=== PATIENT | female | born 1950 | race Caucasian/White ===

== ENCOUNTER → 2017-09-27 13:25 | Outpatient (CLI) | payer MEDICARE, OTHER, SELFPAY ==
[2017-09-27 15:34] LABS: Absolute Lymphocyte Count 1.99 X10^3/ul (0.83-4.51); Absolute Neutrophil Count 4.5 X10^3/uL (2.0-7.7); Basophil# 0.05 X10^3/uL; Basophil% 0.7 % (0-1); Eosinophils% 2.8 % (0-5); Hematocrit 36.7 % (37-47); Hemoglobin 12.8 g/dl (12.0-15.0); Lymphocyte # 1.99 X10^3/ul (4.0); Lymphocyte % 27.8 % (19-41); Mean Corp Hgb Conc 34.9 g/gl (32-36); Mean Corpuscular Hgb 32.5 pg (27.0-32.0); Mean Corpuscular Volume 93.1 fL (81-99); Mean Platelet Vol. 9.6 fl (6.2-12.0); Monocyte# 0.44 X10^3/uL; Monocyte% 6.1 % (0-10); Neutrophil # 4.46 X10^3/uL (2.7-7.7); Neutrophil % 62.3 % (47-70); Platelet Count 250 K/mm3 (150-450); RBC Distribution Width CV 12.5 % (11.6-14.6); RBC Distribution Width SD 41.9 fl (35.1-43.9); Red Blood Count 3.94 M/mm3 (4.2-5.4); White Blood Count 7.2 K/mm3 (4.4-11.0)
[2017-09-27 15:44] LABS: ALB/GLOB Ratio 1.4 RATIO (0.9-2.4); AST(SGOT) 24 U/L (15-37); Alanine Aminotransfer ALT/SGPT 27 U/L (13-56); Alkaline Phosphatase 61 U/L (45-117); Anion Gap 8 (5-15); BUN 14 mg/dL (7-18); BUN/Creat Ratio 16.9 RATIO (10-20); Chloride 103 mmol/L (98-107); Creatinine, Serum 0.83 mg/dL (0.55-1.02); EST Glomerular Filtration Rate 73 mL/min (>60); Est Glom Filt Rate - Afr Amer 88 mL/min (>60); Globulin 2.8 g/dL (2.2-4.2); Glucose 85 mg/dL (74-106); Potassium 3.8 mmol/L (3.5-5.1); Protein, Total 6.8 g/dL (6.4-8.2); Sodium Level 140 mmol/L (136-145)
[2017-09-27 15:45] LABS: POSITIVE COUNT NO; POSITIVE DIFFERENTIAL NO; POSITIVE MORPHOLOGY NO
== END ==
PROVIDERS: Family Provider Family Medicine; PCP Family Medicine; Visit Provider Internal Medicine Rheumatology
DX: M06.4 Inflammatory polyarthropathy (principal); R76.8 Other specified abnormal immunological findings in serum; M18.12 Unilateral primary osteoarthritis of first carpometacarpal joint, left hand; Z79.52 Long term (current) use of systemic steroids; Z79.899 Other long term (current) drug therapy
CPT/HCPCS: 36415; 80053; 85025

== ENCOUNTER → 2017-12-22 09:14 | Outpatient (CLI) | payer MEDICARE, OTHER, SELFPAY ==
[2017-12-22 10:34] LABS: Absolute Lymphocyte Count 1.78 X10^3/ul (0.83-4.51); Absolute Neutrophil Count 2.8 X10^3/uL (2.0-7.7); Basophil# 0.07 X10^3/uL; Basophil% 1.4 % (0-1); Eosinophil# 0.18 X10^3/uL; Eosinophils% 3.5 % (0-5); Hematocrit 38.2 % (37-47); Hemoglobin 13.5 g/dl (12.0-15.0); Lymphocyte # 1.78 X10^3/ul (4.0); Lymphocyte % 34.6 % (19-41); Mean Corp Hgb Conc 35.3 g/gl (32-36); Mean Corpuscular Hgb 32.8 pg (27.0-32.0); Mean Corpuscular Volume 92.9 fL (81-99); Mean Platelet Vol. 9.4 fl (6.2-12.0); Monocyte# 0.32 X10^3/uL; Monocyte% 6.2 % (0-10); Neutrophil # 2.78 X10^3/uL (2.7-7.7); Neutrophil % 54.1 % (47-70); Platelet Count 255 K/mm3 (150-450); RBC Distribution Width CV 12.4 % (11.6-14.6); RBC Distribution Width SD 40.9 fl (35.1-43.9); Red Blood Count 4.11 M/mm3 (4.2-5.4); White Blood Count 5.1 K/mm3 (4.4-11.0)
[2017-12-22 11:12] LABS: ALB/GLOB Ratio 1.5 RATIO (0.9-2.4); AST(SGOT) 24 U/L (15-37); Alanine Aminotransfer ALT/SGPT 33 U/L (13-56); Albumin, Serum 4.1 g/dL (3.2-5.0); Alkaline Phosphatase 78 U/L (45-117); Anion Gap 8 (5-15); BUN 12 mg/dL (7-18); BUN/Creat Ratio 14.2 RATIO (10-20); Calcium,Total 8.9 mg/dL (8.5-10.1); Chloride 106 mmol/L (98-107); Creatinine, Serum 0.84 mg/dL (0.55-1.02); EST Glomerular Filtration Rate 71 mL/min (>60); Est Glom Filt Rate - Afr Amer 86 mL/min (>60); Globulin 2.8 g/dL (2.2-4.2); Glucose 71 mg/dL (74-106); Potassium 4.1 mmol/L (3.5-5.1); Protein, Total 6.9 g/dL (6.4-8.2); Sodium Level 142 mmol/L (136-145)
[2017-12-22 11:14] LABS: POSITIVE COUNT NO; POSITIVE DIFFERENTIAL NO; POSITIVE MORPHOLOGY NO
== END ==
PROVIDERS: Family Provider Family Medicine; PCP Family Medicine; Visit Provider Internal Medicine Rheumatology
DX: M06.4 Inflammatory polyarthropathy (principal); Z79.52 Long term (current) use of systemic steroids; Z79.899 Other long term (current) drug therapy; R76.8 Other specified abnormal immunological findings in serum; M15.9 Polyosteoarthritis, unspecified; M18.12 Unilateral primary osteoarthritis of first carpometacarpal joint, left hand
CPT/HCPCS: 36415; 80053; 85025

== ENCOUNTER → 2018-03-09 14:53 | Outpatient (CLI) | payer MEDICARE, OTHER, SELFPAY ==
[2018-03-09 15:49] LABS: Absolute Neutrophil Count 3.9 X10^3/uL (2.0-7.7); Basophil# 0.05 X10^3/uL; Basophil% 0.8 % (0-1); Eosinophil# 0.21 X10^3/uL; Eosinophils% 3.3 % (0-5); Hematocrit 38.1 % (37-47); Lymphocyte % 29.8 % (19-41); Mean Corp Hgb Conc 34.1 g/gl (32-36); Mean Corpuscular Hgb 32.6 pg (27.0-32.0); Mean Corpuscular Volume 95.5 fL (81-99); Mean Platelet Vol. 9.2 fl (6.2-12.0); Monocyte% 4.7 % (0-10); Neutrophil # 3.92 X10^3/uL (2.7-7.7); Neutrophil % 61.4 % (47-70); Platelet Count 250 K/mm3 (150-450); RBC Distribution Width CV 12.9 % (11.6-14.6); RBC Distribution Width SD 44.4 fl (35.1-43.9); Red Blood Count 3.99 M/mm3 (4.2-5.4); White Blood Count 6.4 K/mm3 (4.4-11.0)
[2018-03-09 15:58] LABS: POSITIVE COUNT NO; POSITIVE DIFFERENTIAL NO; POSITIVE MORPHOLOGY NO
[2018-03-09 16:11] LABS: ALB/GLOB Ratio 1.4 RATIO (0.9-2.4); AST(SGOT) 23 U/L (15-37); Alanine Aminotransfer ALT/SGPT 29 U/L (13-56); Alkaline Phosphatase 67 U/L (45-117); Anion Gap 7 (5-15); BUN 15 mg/dL (7-18); BUN/Creat Ratio 15.3 RATIO (10-20); Calcium,Total 9.3 mg/dL (8.5-10.1); Chloride 104 mmol/L (98-107); Creatinine, Serum 0.98 mg/dL (0.55-1.02); EST Glomerular Filtration Rate 60 mL/min (>60); Est Glom Filt Rate - Afr Amer 72 mL/min (>60); Globulin 2.8 g/dL (2.2-4.2); Glucose 109 mg/dL (74-106); Potassium 3.5 mmol/L (3.5-5.1); Protein, Total 6.8 g/dL (6.4-8.2); Sodium Level 141 mmol/L (136-145)
== END ==
PROVIDERS: Family Provider Family Medicine; PCP Family Medicine; Visit Provider Internal Medicine Rheumatology
DX: M06.4 Inflammatory polyarthropathy (principal); Z79.52 Long term (current) use of systemic steroids; Z79.899 Other long term (current) drug therapy; R76.8 Other specified abnormal immunological findings in serum; M18.12 Unilateral primary osteoarthritis of first carpometacarpal joint, left hand; M21.40 Flat foot [pes planus] (acquired), unspecified foot; K21.9 Gastro-esophageal reflux disease without esophagitis; N80.0 Endometriosis of uterus; L30.9 Dermatitis, unspecified
CPT/HCPCS: 36415; 80053; 85025

== ENCOUNTER → 2018-06-10 14:22 | Outpatient (CLI) | payer MEDICARE, OTHER, SELFPAY ==
[2018-06-10 15:55] LABS: Hematocrit 38.8 % (37-47); Hemoglobin 13.6 g/dl (12.0-15.0); Mean Corp Hgb Conc 35.1 g/gl (32-36); Mean Corpuscular Hgb 33.3 pg (27.0-32.0); Mean Corpuscular Volume 95.1 fL (81-99); Platelet Count 276 K/mm3 (150-450); RBC Distribution Width CV 12.3 % (11.6-14.6); RBC Distribution Width SD 41.6 fl (35.1-43.9); Red Blood Count 4.08 M/mm3 (4.2-5.4); White Blood Count 6.5 K/mm3 (4.4-11.0)
[2018-06-10 15:56] LABS: Absolute Lymphocyte Count 2.11 X10^3/ul (0.83-4.51); Absolute Neutrophil Count 3.9 X10^3/uL (2.0-7.7); Basophil# 0.07 X10^3/uL; Basophil% 1.1 % (0-1); Eosinophil# 0.17 X10^3/uL; Eosinophils% 2.6 % (0-5); Lymphocyte # 2.11 X10^3/ul (4.0); Lymphocyte % 32.3 % (19-41); Mean Platelet Vol. 9.3 fl (6.2-12.0); Monocyte% 4.6 % (0-10); Neutrophil # 3.88 X10^3/uL (2.7-7.7); Neutrophil % 59.2 % (47-70); POSITIVE COUNT NO; POSITIVE DIFFERENTIAL NO; POSITIVE MORPHOLOGY NO
[2018-06-10 16:02] LABS: BUN 14 mg/dL (7-18); BUN/Creat Ratio 15.7 RATIO (10-20); Creatinine, Serum 0.89 mg/dL (0.55-1.02); EST Glomerular Filtration Rate 67 mL/min (>60); Est Glom Filt Rate - Afr Amer 81 mL/min (>60); Glucose 81 mg/dL (74-106)
[2018-06-10 16:03] LABS: ALB/GLOB Ratio 1.3 RATIO (0.9-2.4); AST(SGOT) 17 U/L (15-37); Alanine Aminotransfer ALT/SGPT 24 U/L (13-56); Alkaline Phosphatase 67 U/L (45-117); Anion Gap 7 (5-15); Calcium,Total 9.2 mg/dL (8.5-10.1); Chloride 106 mmol/L (98-107); Potassium 3.7 mmol/L (3.5-5.1); Sodium Level 141 mmol/L (136-145)
--- OUTSIDE RECORDS SUMMARY | 2018-08-05 14:01 | XMS RPT_ITS ---
:1950 Author Organization OH[facility] Care Team Providers Name Role Phone MARCO ANTONIO ALTAMIRANO, DR. TOBIAS Pradhan Attending Unavailable MD SIGIFREDO TONEY Attending Unavailable GEOFF MILLER MD Admitting Unavailable GEOFF MILLER MD Attending Unavailable GEOFF MILLER MD Primary Care Unavailable GEOFF MILLER MD Consulting Unavailable PROVIDER, UNKNOWN Consulting Unavailable PROVIDER, UNKNOWN Consulting Unavailable PROVIDER, UNKNOWN Consulting Unavailable OSCAR MILLER Admitting Unavailable OSCAR MILLER Attending Unavailable OSCAR MILLER Primary Care Unavailable GEOFF MILLER MD Consulting Unavailable PROVIDER, UNKNOWN Consulting Unavailable PROVIDER, UNKNOWN Consulting Unavailable PROVIDER, UNKNOWN Consulting Unavailable Vellanki, Katelynn Attending Unavailable Dewayne Miller Primary Care Unavailable Vellanki, Katelynn Attending Unavailable Vellanki, Katelynn Referring Unavailable Dewayne Miller Primary Care Unavailable Vellanki, Katelynn Attending Unavailable Vellanki, Katelynn Referring Unavailable Dewayne Miller Primary Care Unavailable Vellanki, Katelynn Attending Unavailable Vellanki, Katelynn Referring Unavailable Dewayne Miller Primary Care Unavailable Vellanki, Katelynn Attending Unavailable Vellanki, Katelynn Referring Unavailable Ray Reid Primary Care Unavailable PROBLEMS PROBLEMS DATE TYPE CONDITION / CODE ATTENDING STATUS SOURCE 06/20/2018 Principle Encounter for OSCAR MILLER Active [place] Jean Diagnosis screening for 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 [place] (current) use of [facility] systemic steroids / Hospital Z79.52(ICD-10) Repository 03/09/2018 Unknown Z79.899 - Other long Vellanki, Active [place] term (current) drug [facility] therapy / Hospital Z79.899(ICD-10) Repository 03/09/2018 Unknown R76.8 - Other Vellanki, Active [place] specified abnormal [facility] immunological Hospital findings in serum / Repository R76.8(ICD-10) 03/09/2018 Unknown M15.9 - Vellanki, 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, [facility] unspecified / Hospital M15.9(ICD-10) Repository 03/09/2018 Unknown 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, 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, left hand / M18.12(ICD-10) 03/09/2018 Unknown M21.40 - Flat foot Vellanki, Active [place] [pes planus] [facility] (acquired), Hospital unspecified foot / Repository M21.40(ICD-10) 03/09/2018 Unknown K21.9 - Parvin, Active [place] Gastro-esophageal [facility] reflux disease Hospital without esophagitis Repository / K21.9(ICD-10) 03/09/2018 Unknown N80.0 - Vellansamy, Active [place] Endometriosis of [facility] uterus / Hospital N80.0(ICD-10) Repository 03/09/2018 Unknown L30.9 - Dermatitis, Parvin, Active [place] unspecified / [facility] L30.9(ICD-10) Hospital Repository 07/17/2017 Admitting Hypokalemia / MARCO ANTONIO ALTAMIRANO DR. Active [facility] Diagnosis E87.6(ICD-10) TOBIAS AiLauren [facility] Repository PROCEDURES PROCEDURES No Procedure Records FoundRESULTS RESULTS CBC W/DIFF, AUTOMATED Collected: 06/10/2018 Status: F Source: [place] 2:30 PM [facility] REPOSITORY TYPE CODE TESTS RESULT OUT OF RANGE REFERENCE UNITS LAB L100.1000 4.4-11.0 K/mm3 Normal WBC 6.5 LAB L100.1200 4.2-5.4 M/mm3 Low RBC 4.08 LAB L100.1300 12.0-15.0 g/dl Normal HGB 13.6 LAB L100.1400 37-47 % Normal HCT 38.8 LAB L100.1500 81-99 fL Normal MCV 95.1 LAB L100.1600 27.0-32.0 pg High MCH 33.3 LAB L100.1700 32-36 g/gl Normal MCHC 35.1 LAB L100.1810 11.6-14.6 % Normal RDW CV 12.3 LAB L100.1820 35.1-43.9 fl Normal RDW SD 41.6 LAB L100.1900 150-450 K/mm3 Normal PLT 276 LAB L100.2000 6.2-12.0 fl Normal MPV 9.3 LAB L100.2100 47-70 % Normal NEUT% 59.2 LAB L100.2200 19-41 % Normal LY% 32.3 LAB L100.2300 0-10 % Normal MONO% 4.6 LAB L100.2400 0-5 % Normal EO% 2.6 LAB L100.2500 0-1 % High BASO% 1.1 LAB L100.2550 0.0-0.9 % Normal IM GRAN % 0.200 Result Comment: IG% - Immature Granulocytes (promyelocytes, myelocytes and metamyelocytes) > 1% indicates that a LEFT SHIFT is Present. LAB L100.2620 2.0-7.7 X10 3/uL Normal Absolute Neut 3.9 LAB L100.2720 0.83-4.51 X10 3/ul Normal Absolute Lymph 2.11 Performed By: #### L100.0100 #### [facility] [place], [address] COMPREHENSIVE METABOLIC Collected: 06/10/2018 Status: F Source: [facility] 2:30 PM [facility] [place] TYPE CODE TESTS RESULT OUT OF RANGE REFERENCE UNITS LAB L501.0100 74-106 mg/dL Normal GLU 81 Result Comment: Please note revised GLUCOSE reference range effective 2017. LAB L501.1000 7-18 mg/dL Normal BUN 14 LAB L501.1100 0.55-1.02 mg/dL Normal CREAT,SERUM 0.89 Result Comment: The validity of the calculated GFR AND GFRAA in patients over 70 years has not been determined. Clinical correlation is essential. LAB L501.1110 >60 mL/min Normal EST GFR 67 Result Comment: Non- GFR Calc LAB L501.1115 >60 mL/min Normal EST GFR - AA 81 Result Comment: GFR Calc LAB L501.1300 10-20 RATIO Normal BUN/CRE 15.7 LAB L501.1500 6.4-8.2 g/dL T Normal PROT 7.0 LAB L501.1800 3.2-5.0 g/dL Normal ALB 4.0 LAB L501.1950 2.2-4.2 g/dL Normal GLOB 3.0 LAB L501.2000 0.9-2.4 RATIO Normal A/G 1.3 LAB L501.2200 8.5-10.1 mg/dL CA Normal 9.2 LAB L501.4100 15-37 U/L Normal AST 17 LAB L501.4305 45-117 U/L Normal ALK P 67 LAB L501.4405 13-56 U/L Normal ALT 24 LAB L501.4600 0.20-1.00 mg/dL T Normal BILI 0.60 LAB L501.5300 136-145 mmol/L NA Normal 141 LAB L501.5600 3.5-5.1 mmol/L K Normal 3.7 LAB L501.5900 98-107 mmol/L CL Normal 106 LAB L501.6100 21.0-32.0 mmol/L Normal CO2 28.0 LAB L501.6200 5-15 Normal GAP 7 Performed By: #### L500.4050 #### [facility] [place], [address] CBC W/DIFF, AUTOMATED Collected: 03/09/2018 Status: F Source: [place] 3:02 PM [facility] TYPE CODE TESTS RESULT OUT OF RANGE REFERENCE UNITS LAB L100.1000 4.4-11.0 K/mm3 Normal WBC 6.4 LAB L100.1200 4.2-5.4 M/mm3 Low RBC 3.99 LAB L100.1300 12.0-15.0 g/dl Normal HGB 13.0 LAB L100.1400 37-47 % Normal HCT 38.1 LAB L100.1500 81-99 fL Normal MCV 95.5 LAB L100.1600 27.0-32.0 pg High MCH 32.6 LAB L100.1700 32-36 g/gl Normal MCHC 34.1 LAB L100.1810 11.6-14.6 % Normal RDW CV 12.9 LAB L100.1820 35.1-43.9 fl High RDW SD 44.4 LAB L100.1900 150-450 K/mm3 Normal PLT 250 LAB L100.2000 6.2-12.0 fl Normal MPV 9.2 LAB L100.2100 47-70 % Normal NEUT% 61.4 LAB L100.2200 19-41 % Normal LY% 29.8 LAB L100.2300 0-10 % Normal MONO% 4.7 LAB L100.2400 0-5 % Normal EO% 3.3 LAB L100.2500 0-1 % Normal BASO% 0.8 LAB L100.2550 0.0-0.9 % Normal IM GRAN % 0.000 Result Comment: IG% - Immature Granulocytes (promyelocytes, myelocytes and metamyelocytes) > 1% indicates that a LEFT SHIFT is Present. LAB L100.2620 2.0-7.7 X10 3/uL Normal Absolute Neut 3.9 LAB L100.2720 0.83-4.51 X10 3/ul Normal Absolute Lymph 1.90 Performed By: #### L100.0100 #### [facility] [address] [place], [address] COMPREHENSIVE METABOLIC Collected: 03/09/2018 Status: F Source: [place] [facility] 3:02 PM [facility] TYPE CODE TESTS RESULT OUT OF RANGE REFERENCE UNITS LAB L501.0100 74-106 mg/dL High GLU 109 Result Comment: Fasting Glucose result from 100 to 125 mg/dL suggests IMPAIRED HOMEOSTASIS per A.D.A. criteria. Please note revised GLUCOSE reference range effective 2017. LAB L501.1000 7-18 mg/dL Normal BUN 15 LAB L501.1100 0.55-1.02 mg/dL Normal CREAT,SERUM 0.98 Result Comment: The validity of the calculated GFR AND GFRAA in patients over 70 years has not been determined. Clinical correlation is essential. LAB L501.1110 >60 mL/min Normal EST GFR 60 Result Comment: Non- GFR Calc LAB L501.1115 >60 mL/min Normal EST GFR - AA 72 Result Comment: GFR Calc LAB L501.1300 10-20 RATIO Normal BUN/CRE 15.3 LAB L501.1500 6.4-8.2 g/dL T Normal PROT 6.8 LAB L501.1800 3.2-5.0 g/dL Normal ALB 4.0 LAB L501.1950 2.2-4.2 g/dL Normal GLOB 2.8 LAB L501.2000 0.9-2.4 RATIO Normal A/G 1.4 LAB L501.2200 8.5-10.1 mg/dL CA Normal 9.3 LAB L501.4100 15-37 U/L Normal AST 23 LAB L501.4305 45-117 U/L Normal ALK P 67 LAB L501.4405 13-56 U/L Normal ALT 29 LAB L501.4600 0.20-1.00 mg/dL T Normal BILI 0.80 LAB L501.5300 136-145 mmol/L NA Normal 141 LAB L501.5600 3.5-5.1 mmol/L K Normal 3.5 LAB L501.5900 98-107 mmol/L CL Normal 104 LAB L501.6100 21.0-32.0 mmol/L Normal CO2 30.0 LAB L501.6200 5-15 Normal GAP 7 Performed By: #### L500.4050 #### [facility] [place], [address] COMPREHENSIVE METABOLIC Collected: 12/22/2017 Status: F Source: [place] [facility] 9:20 AM [facility] TYPE CODE TESTS RESULT OUT OF RANGE REFERENCE UNITS LAB L501.0100 74-106 mg/dL Low GLU 71 Result Comment: Please note revised GLUCOSE reference range effective 2017. LAB L501.1000 7-18 mg/dL Normal BUN 12 LAB L501.1100 0.55-1.02 mg/dL Normal CREAT,SERUM 0.84 Result Comment: The validity of the calculated GFR AND GFRAA in patients over 70 years has not been determined. Clinical correlation is essential. LAB L501.1110 >60 mL/min Normal EST GFR 71 Result Comment: Non- GFR Calc LAB L501.1115 >60 mL/min Normal EST GFR - AA 86 Result Comment: GFR Calc LAB L501.1300 10-20 RATIO Normal BUN/CRE 14.2 LAB L501.1500 6.4-8.2 g/dL T Normal PROT 6.9 LAB L501.1800 3.2-5.0 g/dL Normal ALB 4.1 LAB L501.1950 2.2-4.2 g/dL Normal GLOB 2.8 LAB L501.2000 0.9-2.4 RATIO Normal A/G 1.5 LAB L501.2200 8.5-10.1 mg/dL CA Normal 8.9 LAB L501.4100 15-37 U/L Normal AST 24 LAB L501.4305 45-117 U/L Normal ALK P 78 LAB L501.4405 13-56 U/L Normal ALT 33 LAB L501.4600 0.20-1.00 mg/dL T Normal BILI 0.70 LAB L501.5300 136-145 mmol/L NA Normal 142 LAB L501.5600 3.5-5.1 mmol/L K Normal 4.1 LAB L501.5900 98-107 mmol/L CL Normal 106 LAB L501.6100 21.0-32.0 mmol/L Normal CO2 28.0 LAB L501.6200 5-15 Normal GAP 8 Performed By: #### L500.4050 #### [facility] [place], [address] CBC W/DIFF, AUTOMATED Collected: 12/22/2017 Status: F Source: [place] 9:20 AM [facility] TYPE CODE TESTS RESULT OUT OF RANGE REFERENCE UNITS LAB L100.1000 4.4-11.0 K/mm3 Normal WBC 5.1 LAB L100.1200 4.2-5.4 M/mm3 Low RBC 4.11 LAB L100.1300 12.0-15.0 g/dl Normal HGB 13.5 LAB L100.1400 37-47 % Normal HCT 38.2 LAB L100.1500 81-99 fL Normal MCV 92.9 LAB L100.1600 27.0-32.0 pg High MCH 32.8 LAB L100.1700 32-36 g/gl Normal MCHC 35.3 LAB L100.1810 11.6-14.6 % Normal RDW CV 12.4 LAB L100.1820 35.1-43.9 fl Normal RDW SD 40.9 LAB L100.1900 150-450 K/mm3 Normal PLT 255 LAB L100.2000 6.2-12.0 fl Normal MPV 9.4 LAB L100.2100 47-70 % Normal NEUT% 54.1 LAB L100.2200 19-41 % Normal LY% 34.6 LAB L100.2300 0-10 % Normal MONO% 6.2 LAB L100.2400 0-5 % Normal EO% 3.5 LAB L100.2500 0-1 % High BASO% 1.4 LAB L100.2550 0.0-0.9 % Normal IM GRAN % 0.200 Result Comment: IG% - Immature Granulocytes (promyelocytes, myelocytes and metamyelocytes) > 1% indicates that a LEFT SHIFT is Present. LAB L100.2620 2.0-7.7 X10 3/uL Normal Absolute Neut 2.8 LAB L100.2720 0.83-4.51 X10 3/ul Normal Absolute Lymph 1.78 Performed By: #### L100.0100 #### [facility] [address] [place], [place], [address] COMPREHENSIVE METABOLIC Collected: 09/27/2017 Status: F Source: [place] 1:33 PM [facility] TYPE CODE TESTS RESULT OUT OF RANGE REFERENCE UNITS LAB L501.0100 74-106 mg/dL Normal GLU 85 Result Comment: Please note revised GLUCOSE reference range effective 2017. LAB L501.1000 7-18 mg/dL Normal BUN 14 LAB L501.1100 0.55-1.02 mg/dL Normal CREAT,SERUM 0.83 Result Comment: The validity of the calculated GFR AND GFRAA in patients over 70 years has not been determined. Clinical correlation is essential. LAB L501.1110 >60 mL/min Normal EST GFR 73 Result Comment: Non- GFR Calc LAB L501.1115 >60 mL/min Normal EST GFR - AA 88 Result Comment: GFR Calc LAB L501.1300 10-20 RATIO Normal BUN/CRE 16.9 LAB L501.1500 6.4-8.2 g/dL T Normal PROT 6.8 LAB L501.1800 3.2-5.0 g/dL Normal ALB 4.0 LAB L501.1950 2.2-4.2 g/dL Normal GLOB 2.8 LAB L501.2000 0.9-2.4 RATIO Normal A/G 1.4 LAB L501.2200 8.5-10.1 mg/dL CA Normal 9.0 LAB L501.4100 15-37 U/L Normal AST 24 LAB L501.4305 45-117 U/L Normal ALK P 61 LAB L501.4405 13-56 U/L Normal ALT 27 Result Comment: Please note revised ALT reference range effective 2017. LAB L501.4600 0.20-1.00 mg/dL Normal T BILI 0.70 LAB L501.5300 136-145 mmol/L Normal NA 140 LAB L501.5600 3.5-5.1 mmol/L Normal K 3.8 LAB L501.5900 98-107 mmol/L Normal CL 103 LAB L501.6100 21.0-32.0 mmol/L Normal CO2 29.0 LAB L501.6200 5-15 Normal GAP 8 Performed By: #### L500.4050 #### [facility] [address] [place], [place], [address] CBC W/DIFF, AUTOMATED Collected: 09/27/2017 Status: F Source: [place] 1:33 PM [facility] TYPE CODE TESTS RESULT OUT OF RANGE REFERENCE UNITS LAB L100.1000 4.4-11.0 K/mm3 Normal WBC 7.2 LAB L100.1200 4.2-5.4 M/mm3 Low RBC 3.94 LAB L100.1300 12.0-15.0 g/dl Normal HGB 12.8 LAB L100.1400 37-47 % Low HCT 36.7 LAB L100.1500 81-99 fL Normal MCV 93.1 LAB L100.1600 27.0-32.0 pg High MCH 32.5 LAB L100.1700 32-36 g/gl Normal MCHC 34.9 LAB L100.1810 11.6-14.6 % Normal RDW CV 12.5 LAB L100.1820 35.1-43.9 fl Normal RDW SD 41.9 LAB L100.1900 150-450 K/mm3 Normal PLT 250 LAB L100.2000 6.2-12.0 fl Normal MPV 9.6 LAB L100.2100 47-70 % Normal NEUT% 62.3 LAB L100.2200 19-41 % Normal LY% 27.8 LAB L100.2300 0-10 % Normal MONO% 6.1 LAB L100.2400 0-5 % Normal EO% 2.8 LAB L100.2500 0-1 % Normal BASO% 0.7 LAB L100.2550 0.0-0.9 % Normal IM GRAN % 0.300 Result Comment: IG% - Immature Granulocytes (promyelocytes, myelocytes and metamyelocytes) > 1% indicates that a LEFT SHIFT is Present. LAB L100.2620 2.0-7.7 X10 3/uL Normal Absolute Neut 4.5 LAB L100.2720 0.83-4.51 X10 3/ul Normal Absolute Lymph 1.99 Performed By: #### L100.0100 #### [facility] [address] [place], [place], [address] BONE DENSITY STUDY Observed: 08/26/2017 Status: F Source: [facility] 10:57 AM [place] [id number] Patient: JOSHUA ELLIOTT Phone#: : [phone] Age: 67 Gender: F Pt. Type: Out Account: [id number] Location: 052 Ordering: GEOFF MILLER Exam Date: 08/26/2017/10:58 Family Phys: Charge Code: [id number] Physician: Charlton Order #: [id number] DLP Dose#: PROCEDURE: BONE DENSITY STUDY TECHNIQUE: Lumbar vertebral and proximal femoral dual-energy X-ray absorptiometry (DXA) was performed on a central [employer] device. SPINE ANALYSIS RESULTS: Average lumbar bone mineral density (BMD) (g/cm2): 1.085 Lumbar T-score (standard deviation relative to young adult mean BMD): -0.8 Lumbar Z-score (standard deviation relative to age matched control group): 0.8 SPINE CLASSIFICATION: Normal (T-score > -1.0). HIP ANALYSIS RESULTS: Left femoral bone mineral density (BMD) (g/cm2): 0.847 Right femoral bone mineral density (BMD) (g/cm2): 0.875 Femur T-score (standard deviation relative to young adult mean BMD): -1.2 Femur Z-score (standard deviation relative to age matched control group): 0.1 HIP CLASSIFICATION (World Health Organization): Osteopenia (T-score -1.0 to -2.5). Note: The 2007 International Society for Clinical Densitometry (ISCD) Official Positions state that osteoporosis in lalo-menopausal and post-menopausal women and in men age 50 and older may be diagnosed if the T-score of the lumbar spine, total hip, or femoral neck is -2.5 or less. Hip BMD is reported from the femoral neck or total proximal femur whichever is lowest. In pre-menopausal women and in men younger than age 50, T-scores may be used but Z-scores are preferred. In this patient group, a Z-score of -2.0 or lower is defined as below the expected range for age. FRAX is a computer-based algorithm which uses easily obtained clinical risk factors combined with femoral neck BMD or T-score to estimate an individual 10-year fracture probability. FRAX with BMD predicts fracture risk better than clinical risk factors or BMD alone. It is not appropriate to use FRAX to monitor treatment response. ADDITIONAL FINDINGS: No significant additional findings. [place] [address] Patient: JOSHUA ELLIOTT Phone#: : 1950 Age: 67 Gender: F Pt. Type: Out Account: [id number] Location: 052 Ordering: GEOFF MILLER Exam Date: 08/26/2017/10:58 Family Phys: Charge Code: [id number] Physician: Charlton Order #: [id number] DLP Dose#: Dictated by: Rebecca Love MD on 08/26/2017 at 11:29 Approved by: Rebecca Love MD on 08/26/2017 at 11:29 BMP Collected: 08/18/2017 Status: F Source: [facility] 10:14 AM [facility] [place] REPOSITORY TYPE CODE TESTS RESULT OUT OF REFERENCE UNITS RANGE LAB GLU(LOINC) 82-115 mg/dL Glucose Level 89 LAB NA(LOINC) 136-145 mEq/L Sodium Level 139 LAB K(LOINC) 3.5-5.0 mEq/L Potassium Level 4.0 LAB CL(LOINC) 98-110 mEq/L Chloride 102 LAB CO2(LOINC) 22-32 mEq/L CO2 28 LAB EBAL(LOINC 4.0-15.0 mEq/L ) Electrolyte Balance 9.0 LAB BUN(LOINC) 8.0-22.0 mg/dL BUN 14.0 LAB CRE(LOINC) 0.50-1.20 mg/dL Creatinine Lvl (s) 0.80 LAB BC(LOINC) 10.0-22.0 ratio BUN/Creatinine 17.5 Ratio LAB CA(LOINC) 8.4-10.1 mg/dL Calcium Lvl 9.4 Performed By: #### BMP, GFR #### [place] [address] .GFR Collected: 08/18/2017 Status: F Source: [facility] 10:14 AM [facility] REPOSITORY TYPE CODE TESTS RESULT OUT OF REFERENCE UNITS RANGE LAB GFRAA(LOINC ml/min/1.73 ) sqm GFR >60 Palestinian Result Comment: GFR Population mean for , Non- Americans Ages 20-29 = 116 mL/min/1.73 sq.m. Ages 30-39 = 107 mL/min/1.73 sq.m. Ages 40-49 = 99 mL/min/1.73 sq.m. Ages 50-59 = 93 mL/min/1.73 sq.m. Ages 60-69 = 85 mL/min/1.73 sq.m. Ages 70+ = 75 mL/min/1.73 sq.m. Chronic Kidney Disease: Less than 60 mL/min/1.73 square meters End Stage Renal Disease: Less than 15 mL/min/1.73 square meters LAB GFRNO(LOINC) ml/min/1.73sqm GFR Non- >60 Result Comment: GFR Population mean for , Non- Americans Ages 20-29 = 116 mL/min/1.73 sq.m. Ages 30-39 = 107 mL/min/1.73 sq.m. Ages 40-49 = 99 mL/min/1.73 sq.m. Ages 50-59 = 93 mL/min/1.73 sq.m. Ages 60-69 = 85 mL/min/1.73 sq.m. Ages 70+ = 75 mL/min/1.73 sq.m. Chronic Kidney Disease: Less than 60 mL/min/1.73 square meters End Stage Renal Disease: Less than 15 mL/min/1.73 square meters Performed By: #### BMP, GFR #### [facility] [address] [place] [id number] BMP Collected: 07/17/2017 Status: F Source: [facility] 10:08 AM [facility] [place] REPOSITORY TYPE CODE TESTS RESULT OUT OF REFERENCE UNITS RANGE LAB GLU(LOINC) 82-115 mg/dL Glucose Level 84 LAB NA(LOINC) 136-145 mEq/L Sodium Level 142 LAB K(LOINC) 3.5-5.0 mEq/L Potassium Level 4.0 LAB CL(LOINC) 98-110 mEq/L Chloride 102 LAB CO2(LOINC) 22-32 mEq/L CO2 31 LAB EBAL(LOINC 4.0-15.0 mEq/L ) Electrolyte Balance 9.0 LAB BUN(LOINC) 8.0-22.0 mg/dL BUN 16.0 LAB CRE(LOINC) 0.50-1.20 mg/dL Creatinine Lvl (s) 0.89 LAB BC(LOINC) 10.0-22.0 ratio BUN/Creatinine 18.0 Ratio LAB CA(LOINC) 8.4-10.1 mg/dL Calcium Lvl 9.3 Performed By: #### GFR, BMP #### [facility] [address] [place] [address] .GFR Collected: 07/17/2017 Status: F Source: [facility] 10:08 AM [facility] REPOSITORY TYPE CODE TESTS RESULT OUT OF REFERENCE UNITS RANGE LAB GFRAA(LOINC ml/min/1.73 ) sqm GFR >60 Palestinian Result Comment: GFR Population mean for , Non- Americans Ages 20-29 = 116 mL/min/1.73 sq.m. Ages 30-39 = 107 mL/min/1.73 sq.m. Ages 40-49 = 99 mL/min/1.73 sq.m. Ages 50-59 = 93 mL/min/1.73 sq.m. Ages 60-69 = 85 mL/min/1.73 sq.m. Ages 70+ = 75 mL/min/1.73 sq.m. Chronic Kidney Disease: Less than 60 mL/min/1.73 square meters End Stage Renal Disease: Less than 15 mL/min/1.73 square meters LAB GFRNO(LOINC) ml/min/1.73sqm GFR Non- >60 Result Comment: GFR Population mean for , Non- Americans Ages 20-29 = 116 mL/min/1.73 sq.m. Ages 30-39 = 107 mL/min/1.73 sq.m. Ages 40-49 = 99 mL/min/1.73 sq.m. Ages 50-59 = 93 mL/min/1.73 sq.m. Ages 60-69 = 85 mL/min/1.73 sq.m. Ages 70+ = 75 mL/min/1.73 sq.m. Chronic Kidney Disease: Less than 60 mL/min/1.73 square meters End Stage Renal Disease: Less than 15 mL/min/1.73 square meters Performed By: #### GFR, BMP #### [place] [address] CBC W/DIFF, AUTOMATED Collected: 07/14/2017 Status: F Source: [place] 11:34 AM [facility] TYPE CODE TESTS RESULT OUT OF RANGE REFERENCE UNITS LAB L100.1000 4.4-11.0 K/mm3 Normal WBC 8.0 LAB L100.1200 4.2-5.4 M/mm3 Low RBC 4.18 LAB L100.1300 12.0-15.0 g/dl Normal HGB 13.2 LAB L100.1400 37-47 % Normal HCT 39.4 LAB L100.1500 81-99 fL Normal MCV 94.3 LAB L100.1600 27.0-32.0 pg Normal MCH 31.6 LAB L100.1700 32-36 g/gl Normal MCHC 33.5 LAB L100.1810 11.6-14.6 % Normal RDW CV 13.1 LAB L100.1820 35.1-43.9 fl High RDW SD 45.0 LAB L100.1900 150-450 K/mm3 Normal PLT 249 LAB L100.2000 6.2-12.0 fl Normal MPV 9.2 LAB L100.2100 47-70 % Normal NEUT% 55.9 LAB L100.2200 19-41 % Normal LY% 33.3 LAB L100.2300 0-10 % Normal MONO% 7.4 LAB L100.2400 0-5 % Normal EO% 2.6 LAB L100.2500 0-1 % Normal BASO% 0.5 LAB L100.2550 0.0-0.9 % Normal IM GRAN % 0.300 Result Comment: IG% - Immature Granulocytes (promyelocytes, myelocytes and metamyelocytes) > 1% indicates that a LEFT SHIFT is Present. LAB L100.2620 2.0-7.7 X10 3/uL Normal Absolute Neut 4.4 LAB L100.2720 0.83-4.51 X10 3/ul Normal Absolute Lymph 2.65 Performed By: #### L100.0100 #### [facility] [address] [place], [address] COMPREHENSIVE METABOLIC Collected: 07/14/2017 Status: F [facility] TYPE CODE TESTS RESULT OUT OF RANGE REFERENCE UNITS LAB L501.0100 70-110 mg/dL Low GLU 65 LAB L501.1000 7-18 mg/dL Normal BUN 13 LAB L501.1100 0.55-1.02 mg/dL Normal 0.96 CREAT,SERUM Result Comment: The validity of the calculated GFR AND GFRAA in patients over 70 years has not been determined. Clinical correlation is essential. LAB L501.1110 >60 mL/min Normal EST GFR 61 Result Comment: Non- GFR Calc LAB L501.1115 >60 mL/min Normal EST GFR - AA 74 Result Comment: GFR Calc LAB L501.1300 10-20 RATIO Normal BUN/CRE 13.5 LAB L501.1500 6.4-8.2 g/dL T Normal PROT 6.9 LAB L501.1800 3.4-5.0 g/dL Normal ALB 3.6 Result Comment: Please note revised Albumin AND Globulin reference range effective 2017. LAB L501.1950 2.2-4.2 g/dL Normal GLOB 3.3 LAB L501.2000 0.9-2.4 RATIO Normal A/G 1.1 LAB L501.2200 8.5-10.1 mg/dL Normal CA 9.4 LAB L501.4100 15-37 U/L Normal AST 19 LAB L501.4305 45-117 U/L Normal ALK P 57 LAB L501.4405 12-78 U/L Normal ALT 26 LAB L501.4600 0.20-1.00 mg/dL Normal T BILI 0.80 LAB L501.5300 136-145 mmol/L Normal NA 139 LAB L501.5600 3.5-5.1 mmol/L Low K 3.1 LAB L501.5900 98-107 mmol/L Normal CL 101 LAB L501.6100 21.0-32.0 mmol/L Normal CO2 31.0 LAB L501.6200 5-15 Normal GAP 7 Performed By: #### L500.4050 #### [facility] [address] [place], [address] ALLERGIES ALLERGIES DATE TYPE / CODE NAME / CODE REACTION SEVERITY SOURCE Drug PCN Moderate Brando Pomerene Allergy/4160 (penicillin)/ ([place] [id number](SNOMED [id number](RXNO Modifier) Repository CT) RM) (Qualifier Value) Drug SULFA Moderate Brando Pomerene Allergy/4160 (sulfonamide) ([place] [address](SNOMED /[id number](RXN Modifier) Repository CT) ORM) (Qualifier Value) Drug ANESTHETIC, Moderate Brando Pomerene Allergy/4160 AMIDE/[id number] ([place] [address](SNOMED 2(RXNORM) Modifier) Repository CT) (Qualifier Value) ENCOUNTERS ENCOUNTERS ADMIT/DISCHARGE ACCOUNT NUMBER ADMITTING ENCOUNTER LOCATION SOURCE CLASS 06/20/2018/06/20/20 [id number] OSCAR MILLER [address] Repository 06/10/2018 [id number] [facility] ding:MTLAB Repository 03/09/2018 [id number] [facility] ding:MTLAB Repository 12/22/2017 [id number] [facility] ding:MTLAB Repository 09/27/2017 [id number] [facility] ding:MTLAB Repository 08/26/2017/08/26/19 [id number] GEOFF MILLER [address] Repository 08/18/2017/08/22/[id number] BBuilding:[facility] Repository 07/17/2017/07/21/[id number] BBuilding:[facility] Repository 07/14/2017 [id number] [facility] ding:MTLAB Repository PAYERS PAYERS ENCOUNTER GUARANTOR PAYER SUBSCRIBER SOURCE 06/20/2018 JOSHUA Car Brando Kernswendy CARUSODOB: Insurance:MEDICARE CARUSODOB: [facility] [id number] [facility] [id number] Hospital TR Number: 5 [facility] Repository [address] [place] [address], [id number] [address] [place] [address]Vsk: Date:Plan Name: [id number] () 06/20/2018 Secondary JOSHUA Jean Insurance:MEDICAL CARUSODOB: [facility] [id number] Hospital OUTPATIENTPolicy [address] Repository Number: PoojaCIRCLE, [id number] [place] [id number] Date:Plan Name: 06/10/2018 JOSHUA J Primary JOSHUA J [place] [id number] TR Insurance:MEDICARE CARUSODOB: [address], PART A BPolicy Number: [id number] [address]Ppr: [id number] Repository Date:2018-06-10 () 06/10/2018 Secondary JOSHUA Joceline [place] Insurance:MEDICAL CARUSODOB: [facility] [id number] Hospital Number: Repository [id number] Date:[id number] [address] [place] [id number]: 06/10/2018 Tertiary NOT GIVENUNK [place] Insurance:SELF PAY [facility] Number: Effective Repository Date:2018-06-10 03/09/2018 JOSHUA J Primary JOSHUA J [place] [id number] TR Insurance:MEDICARE CARUSODOB: [address], PART A BPolicy Number: [id number] [facility] Hospital [address]Czc: [id number] Repository Date:2018-03-09 () 03/09/2018 Secondary JOSHUA J Bertin Insurance:MEDICAL CARUSODOB: [facility] [id number] Hospital Number: Repository [id number] Date:[id number] [address] [place] [id number]: 03/09/2018 Tertiary NOT GIVENUNK [place] Insurance:SELF PAY [facility] Number: Effective Repository Date:2018-03-09 12/22/2017 JOSHUA J Primary JOSHUA J [place] [id number] TR Insurance:MEDICARE CARUSODOB: [address], PART A olicy Number: [id number] General Hospital [address]Rjm: [id number] Repository Date:2017-12-22 () 12/22/2017 Secondary JOSHUA J [place] Insurance:MEDICAL CARUSODOB: [facility] [id number] Hospital Number: Repository [id number] Date:[id number] [address] [place] [id number]: 12/22/2017 Tertiary NOT GIVENUNK [place] Insurance:SELF PAY [facility] Number: Effective Repository Date:2017-12-22 09/27/2017 JOSHUA J Primary JOSHUA J [place] [id number] TR Insurance:MEDICARE CARUSODOB: [address], [facility] A olicy Number: [id number] General Hospital [address]8923Kqj: [id number] Repository Date:2017-09-27 () 09/27/2017 Secondary JOSHUA J [place] Insurance:MEDICAL CARUSODOB: [facility] [id number] Hospital Number: Repository [id number] Date:[id number] [address] [id number]: 09/27/2017 Tertiary NOT GIVENUNK [place] Insurance:SELF PAY [facility] Number: Effective Repository Date:2017-09-27 08/26/2017 JOSHUA J Primary JOSHUA J Brando Jean CARUSODOB: Insurance:MEDICARE CARUSODOB: [facility] [id number] [facility] [id number] Hospital [address] Number: 5 [facility] Repository [address] [place] [id number] Date:Plan Name: [id number]: () 08/26/2017 Secondary JOSHUARAY Jean Insurance:MEDICAL CARUSODOB: [facility] [id number] Hospital OUTPATIENTPolicy [address] Repository Number: [address] [place] [address] [id number] [place] [id number] Date:Plan Name:M3 08/18/2017 JOSHUA Primary JOSHUA CARUSODOB: [facility] CARUSODOB: Insurance:MEDICARE [id number] [facility] PART BPolicy Number: 5 tr Repository tr [id number], Date:2017-08-18 - [place] [address]Pyr: [place] [address]Oyg: [id number] Name:[facility] ()Tel: (000) (HP)Tel: (000) Administrators LLCPO 000-0000 (WP) 000-0000 (WP) [address] [address], [place] [address]KC: 07/17/2017 JOSHUA Primary JOSHUA CARUSODOB: [facility] CARUSODOB: Insurance:MEDICARE [id number] [facility] PART BPolicy Number: 5 tr Repository tr [id number], Date:2017-07-17 - [place] [address]Zfz: [place] [address]Liv: [id number] Name:[facility] ()Tel: (000) (HP)Tel: (000) Administrators LLCPO 000-0000 (WP) 000-0000 (WP) [address] [address], [place] [address]GO: 07/14/2017 JOSHUA J Primary JOSHUA J [place] [id number] TR Insurance:MEDICARE CARUSODOB: [address], PART A BPolicy Number: [id number] Hospital [place] [address]Bqy: [id number] Repository Date:2017-07-14 (HP) 07/14/2017 Secondary JOSHUA Saundersoster Insurance:MEDICAL CARUSODOB: [facility] [id number] Hospital Number: Repository [id number] Date:1137-03-09YI [address] [address]KH: 07/14/2017 Tertiary NOT GIVENUNK Bertin Insurance:SELF PAY [facility] Number: Effective Repository Date:2017-07-14
== END ==
PROVIDERS: Family Provider Family Medicine; PCP Family Medicine; Referring Provider Internal Medicine Rheumatology; Visit Provider Internal Medicine Rheumatology
DX: M06.4 Inflammatory polyarthropathy (principal); Z79.52 Long term (current) use of systemic steroids; Z79.899 Other long term (current) drug therapy; R76.8 Other specified abnormal immunological findings in serum; M18.12 Unilateral primary osteoarthritis of first carpometacarpal joint, left hand; M21.40 Flat foot [pes planus] (acquired), unspecified foot; K21.9 Gastro-esophageal reflux disease without esophagitis; N80.0 Endometriosis of uterus; L30.9 Dermatitis, unspecified
CPT/HCPCS: 36415; 80053; 85025

== ENCOUNTER → 2018-08-30 10:40 | Outpatient (CLI) | payer MEDICARE, OTHER, SELFPAY ==
[2018-08-30 12:23] LABS: Absolute Lymphocyte Count 1.79 X10^3/ul (0.83-4.51); Absolute Neutrophil Count 3.5 X10^3/uL (2.0-7.7); Basophil# 0.05 X10^3/uL; Basophil% 0.9 % (0-1); Eosinophil# 0.15 X10^3/uL; Eosinophils% 2.6 % (0-5); Hematocrit 38.7 % (37-47); Hemoglobin 13.4 g/dl (12.0-15.0); Lymphocyte # 1.79 X10^3/ul (4.0); Lymphocyte % 30.8 % (19-41); Mean Corp Hgb Conc 34.6 g/gl (32-36); Mean Corpuscular Hgb 32.7 pg (27.0-32.0); Mean Corpuscular Volume 94.4 fL (81-99); Mean Platelet Vol. 9.5 fl (6.2-12.0); Monocyte# 0.35 X10^3/uL; Neutrophil # 3.48 X10^3/uL (2.7-7.7); Neutrophil % 59.7 % (47-70); Platelet Count 231 K/mm3 (150-450); RBC Distribution Width CV 12.1 % (11.6-14.6); RBC Distribution Width SD 40.6 fl (35.1-43.9); White Blood Count 5.8 K/mm3 (4.4-11.0)
[2018-08-30 12:28] LABS: POSITIVE COUNT NO; POSITIVE DIFFERENTIAL NO; POSITIVE MORPHOLOGY NO
[2018-08-30 12:53] LABS: ALB/GLOB Ratio 1.5 RATIO (0.9-2.4); AST(SGOT) 18 U/L (15-37); Alanine Aminotransfer ALT/SGPT 21 U/L (13-56); Albumin, Serum 4.1 g/dL (3.2-5.0); Alkaline Phosphatase 58 U/L (45-117); Anion Gap 9 (5-15); BUN 9 mg/dL (7-18); BUN/Creat Ratio 9.5 RATIO (10-20); Calcium,Total 9.2 mg/dL (8.5-10.1); Chloride 105 mmol/L (98-107); Creatinine, Serum 0.95 mg/dL (0.55-1.02); EST Glomerular Filtration Rate 62 mL/min (>60); Est Glom Filt Rate - Afr Amer 75 mL/min (>60); Globulin 2.7 g/dL (2.2-4.2); Glucose 65 mg/dL (74-106); Potassium 3.6 mmol/L (3.5-5.1); Protein, Total 6.8 g/dL (6.4-8.2); Sodium Level 143 mmol/L (136-145)
== END ==
PROVIDERS: Family Provider Family Medicine; PCP Family Medicine; Referring Provider Internal Medicine Rheumatology; Visit Provider Internal Medicine Rheumatology
DX: M06.4 Inflammatory polyarthropathy (principal); Z79.899 Other long term (current) drug therapy; R76.8 Other specified abnormal immunological findings in serum; M15.9 Polyosteoarthritis, unspecified; M18.12 Unilateral primary osteoarthritis of first carpometacarpal joint, left hand; M47.897 Other spondylosis, lumbosacral region
CPT/HCPCS: 36415; 80053; 85025

== ENCOUNTER → 2018-10-12 10:19 | Outpatient (CLI) | payer MEDICARE, OTHER, SELFPAY ==
[2018-10-12 12:25] LABS: Absolute Lymphocyte Count 1.89 X10^3/ul (0.83-4.51); Absolute Neutrophil Count 3.8 X10^3/uL (2.0-7.7); Basophil# 0.07 X10^3/uL; Basophil% 1.1 % (0-1); Eosinophil# 0.13 X10^3/uL; Eosinophils% 2.1 % (0-5); Hematocrit 39.2 % (37-47); Hemoglobin 13.5 g/dl (12.0-15.0); Lymphocyte # 1.89 X10^3/ul (4.0); Lymphocyte % 30.4 % (19-41); Mean Corp Hgb Conc 34.4 g/gl (32-36); Mean Corpuscular Hgb 31.6 pg (27.0-32.0); Mean Corpuscular Volume 91.8 fL (81-99); Mean Platelet Vol. 9.1 fl (6.2-12.0); Monocyte# 0.35 X10^3/uL; Monocyte% 5.6 % (0-10); Neutrophil # 3.76 X10^3/uL (2.7-7.7); Neutrophil % 60.6 % (47-70); Platelet Count 249 K/mm3 (150-450); RBC Distribution Width CV 12.6 % (11.6-14.6); RBC Distribution Width SD 41.5 fl (35.1-43.9); Red Blood Count 4.27 M/mm3 (4.2-5.4); White Blood Count 6.2 K/mm3 (4.4-11.0)
[2018-10-12 12:30] LABS: POSITIVE COUNT NO; POSITIVE DIFFERENTIAL NO; POSITIVE MORPHOLOGY NO
[2018-10-12 12:32] LABS: ALB/GLOB Ratio 1.4 RATIO (0.9-2.4); AST(SGOT) 21 U/L (15-37); Alanine Aminotransfer ALT/SGPT 26 U/L (13-56); Albumin, Serum 4.2 g/dL (3.2-5.0); Alkaline Phosphatase 71 U/L (45-117); Anion Gap 7 (5-15); BUN 10 mg/dL (7-18); BUN/Creat Ratio 11.9 RATIO (10-20); Calcium,Total 9.6 mg/dL (8.5-10.1); Chloride 105 mmol/L (98-107); Creatinine, Serum 0.84 mg/dL (0.55-1.02); EST Glomerular Filtration Rate 71 mL/min (>60); Est Glom Filt Rate - Afr Amer 86 mL/min (>60); Glucose 80 mg/dL (74-106); Potassium 3.9 mmol/L (3.5-5.1); Protein, Total 7.2 g/dL (6.4-8.2); Sodium Level 142 mmol/L (136-145)
== END ==
PROVIDERS: Family Provider Family Medicine; PCP Family Medicine; Referring Provider Internal Medicine Rheumatology; Visit Provider Internal Medicine Rheumatology
DX: M06.4 Inflammatory polyarthropathy (principal); Z79.899 Other long term (current) drug therapy; R76.8 Other specified abnormal immunological findings in serum; M18.12 Unilateral primary osteoarthritis of first carpometacarpal joint, left hand; M47.897 Other spondylosis, lumbosacral region; M21.40 Flat foot [pes planus] (acquired), unspecified foot; K21.9 Gastro-esophageal reflux disease without esophagitis; N80.0 Endometriosis of uterus; L30.9 Dermatitis, unspecified
CPT/HCPCS: 36415; 80053; 85025

== ENCOUNTER → 2018-12-14 | Outpatient (CLI) | payer MEDICARE, OTHER, SELFPAY ==
[2018-12-14 12:09] LABS: Absolute Lymphocyte Count 1.51 X10^3/ul (0.83-4.51); Basophil# 0.05 X10^3/uL; Eosinophil# 0.14 X10^3/uL; Eosinophils% 2.8 % (0-5); Hematocrit 38.5 % (37-47); Hemoglobin 13.5 g/dl (12.0-15.0); Lymphocyte # 1.51 X10^3/ul (4.0); Lymphocyte % 29.8 % (19-41); Mean Corp Hgb Conc 35.1 g/gl (32-36); Mean Corpuscular Hgb 32.4 pg (27.0-32.0); Mean Corpuscular Volume 92.3 fL (81-99); Mean Platelet Vol. 9.2 fl (6.2-12.0); Monocyte# 0.32 X10^3/uL; Monocyte% 6.3 % (0-10); Neutrophil # 3.04 X10^3/uL (2.7-7.7); Neutrophil % 59.9 % (47-70); Platelet Count 255 K/mm3 (150-450); RBC Distribution Width CV 13.1 % (11.6-14.6); RBC Distribution Width SD 42.9 fl (35.1-43.9); Red Blood Count 4.17 M/mm3 (4.2-5.4); White Blood Count 5.1 K/mm3 (4.4-11.0)
[2018-12-14 12:10] LABS: POSITIVE COUNT NO; POSITIVE DIFFERENTIAL NO; POSITIVE MORPHOLOGY NO
[2018-12-14 12:59] LABS: ALB/GLOB Ratio 1.3 RATIO (0.9-2.4); AST(SGOT) 18 U/L (15-37); Alanine Aminotransfer ALT/SGPT 24 U/L (13-56); Albumin, Serum 3.9 g/dL (3.2-5.0); Alkaline Phosphatase 69 U/L (45-117); Anion Gap 9 (5-15); BUN 11 mg/dL (7-18); BUN/Creat Ratio 13.6 RATIO (10-20); Calcium,Total 9.5 mg/dL (8.5-10.1); Chloride 106 mmol/L (98-107); Creatinine, Serum 0.81 mg/dL (0.55-1.02); EST Glomerular Filtration Rate 74 mL/min (>60); Est Glom Filt Rate - Afr Amer 90 mL/min (>60); Globulin 3.1 g/dL (2.2-4.2); Glucose 75 mg/dL (74-106); Potassium 3.8 mmol/L (3.5-5.1); Sodium Level 144 mmol/L (136-145)
== END | disposition home or self-care (01) ==
LOC: MTLAB 11:05
PROVIDERS: Family Provider Family Medicine; PCP Family Medicine; Referring Provider Internal Medicine Rheumatology; Visit Provider Internal Medicine Rheumatology
DX: M06.4 Inflammatory polyarthropathy (principal); Z79.899 Other long term (current) drug therapy; R76.8 Other specified abnormal immunological findings in serum; M15.9 Polyosteoarthritis, unspecified; M18.12 Unilateral primary osteoarthritis of first carpometacarpal joint, left hand; M47.897 Other spondylosis, lumbosacral region; M21.40 Flat foot [pes planus] (acquired), unspecified foot; K21.9 Gastro-esophageal reflux disease without esophagitis; N80.0 Endometriosis of uterus; L30.9 Dermatitis, unspecified
CPT/HCPCS: 36415; 80053; 85025

== ENCOUNTER → 2019-03-03 11:40 | Outpatient (CLI) | payer MEDICARE, OTHER, SELFPAY ==
[2019-03-03 14:20] LABS: Absolute Lymphocyte Count 2.17 X10^3/uL (0.83-4.51); Absolute Neutrophil Count 3.2 X10^3/uL (2.0-7.7); Basophil# 0.06 X10^3/uL; Eosinophil# 0.17 X10^3/uL; Eosinophils% 2.8 % (0-5); Hematocrit 38.7 % (37-47); Hemoglobin 13.4 g/dL (12.0-15.0); Lymphocyte # 2.17 X10^3/ul (4.0); Lymphocyte % 36.3 % (19-41); Mean Corp Hgb Conc 34.6 g/dL (32-36); Mean Corpuscular Hgb 32.7 pg (27.0-32.0); Mean Corpuscular Volume 94.4 fL (81-99); Mean Platelet Vol. 9.5 fl (6.2-12.0); Monocyte# 0.39 X10^3/uL; Monocyte% 6.5 % (0-10); NRBC Flagged by Analyzer 0 % (0-5); Neutrophil # 3.16 X10^3/uL (2.7-7.7); Neutrophil % 53.1 % (47-70); Platelet Count 251 K/mm3 (150-450); RBC Distribution Width CV 12.2 % (11.6-14.6); RBC Distribution Width SD 42.2 fl (35.1-43.9)
[2019-03-03 14:37] LABS: ALB/GLOB Ratio 1.4 RATIO (0.9-2.4); AST(SGOT) 13 U/L (15-37); Alanine Aminotransfer ALT/SGPT 24 U/L (13-56); Alkaline Phosphatase 66 U/L (45-117); Anion Gap 7 (5-15); BUN 12 mg/dL (7-18); Calcium,Total 9.5 mg/dL (8.5-10.1); Chloride 104 mmol/L (98-107); Creatinine, Serum 0.86 mg/dL (0.55-1.02); EST Glomerular Filtration Rate 70 mL/min (>60); Est Glom Filt Rate - Afr Amer 85 mL/min (>60); Globulin 2.9 g/dL (2.2-4.2); Glucose 67 mg/dL (74-106); Potassium 3.9 mmol/L (3.5-5.1); Protein, Total 6.9 g/dL (6.4-8.2); Sodium Level 142 mmol/L (136-145)
== END ==
PROVIDERS: Family Provider Family Medicine; PCP Family Medicine; Referring Provider Internal Medicine Rheumatology; Visit Provider Internal Medicine Rheumatology
DX: M06.4 Inflammatory polyarthropathy (principal); Z79.899 Other long term (current) drug therapy; R76.8 Other specified abnormal immunological findings in serum; M18.12 Unilateral primary osteoarthritis of first carpometacarpal joint, left hand; M47.897 Other spondylosis, lumbosacral region; M21.40 Flat foot [pes planus] (acquired), unspecified foot; K21.9 Gastro-esophageal reflux disease without esophagitis; N80.0 Endometriosis of uterus; L30.9 Dermatitis, unspecified
CPT/HCPCS: 36415; 80053; 85025

== ENCOUNTER → 2019-06-02 16:44 | Outpatient (CLI) | payer MEDICARE, OTHER, SELFPAY ==
--- NOTE | 2019-06-02 16:56 | MRI_ITS ---
STUDY: MRI BRAIN WITH AND WITHOUT CONTRAST (ATTENTION INTERNAL AUDITORY CANALS - I.A.C.'s) REASON FOR EXAM: Female, 69 years old. The patient presents with a history of right-sided hearing loss. The patient provides a history of a excision of a schwannoma. TECHNIQUE: Standardized multiplanar fat and water weighted pulse sequences were obtained. IV Dotarem 12 was administered for the contrast portion of the examination. COMPARISON: None. FINDINGS: Normal bilateral temporal bones. 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 The cisternal portion of the 8th cranial nerve is normal. The left 7th and 8th cranial nerves are normal without enhancement. Normal bilateral cochlea, vestibules and semicircular canals. Normal size of the ventricles and extra-axial spaces for the patient's age. There are multiple white matter hyperintensities, distributed throughout the deep white matter tracts of the cerebral hemispheres, consistent with moderate chronic white matter ischemic changes. There is no evidence for recent intracranial ischemia or other cause of cytotoxic edema on diffusion weighted imaging (DWI). Normal bilateral basal ganglia. Normal thalami. Normal flow voids within the major intracranial circulation suggesting patency by spin echo criteria. Normal venous enhancement. There is no enhancing intra-axial or extra-axial abnormality. There is no extra-axial fluid accumulation. Normal sella turcica, pituitary gland, infundibular stalk, optic chiasm and hypothalamus. Normal tectal plate and pineal gland. Normal midbrain, john and medulla. Normal cerebellum. Normal basal cisterns. No demonstrated orbital abnormality, within the constraints of a routine brain study. Normal visualized paranasal sinuses. Normal calvarium and skull base. Normal visualized soft tissue structures. Normal visualized upper cervical spine. MRI/Brain W/WO Contrast IMPRESSION: 1. 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 2. Moderate chronic white matter ischemic changes of the supratentorial brain. Electronically Signed: Rick Prakash DO at 15:59 EST Tel , Service support ,
[2019-06-03 07:20] LABS: CREATININE FINGERSTICK 0.65 mg/dL (0.55-1.02); EGFR FINGERSTICK > 60 mL/min (>60)
== END ==
PROVIDERS: Family Provider Family Medicine; PCP Family Medicine
DX: D33.3 Benign neoplasm of cranial nerves (principal); H90.5 Unspecified sensorineural hearing loss
CPT/HCPCS: 70553; A9575

== ENCOUNTER → 2019-06-07 15:22 | Outpatient (CLI) | payer MEDICARE, OTHER, SELFPAY ==
[2019-06-07 17:47] LABS: Absolute Lymphocyte Count 1.69 X10^3/uL (0.83-4.51); Absolute Neutrophil Count 3.8 X10^3/uL (2.0-7.7); Basophil# 0.07 X10^3/uL; Basophil% 1.2 % (0-1); Eosinophil# 0.11 X10^3/uL; Eosinophils% 1.8 % (0-5); Hematocrit 39.8 % (37-47); Hemoglobin 13.7 g/dL (12.0-15.0); Lymphocyte # 1.69 X10^3/ul (4.0); Lymphocyte % 28.1 % (19-41); Mean Corp Hgb Conc 34.4 g/dL (32-36); Mean Corpuscular Hgb 33.2 pg (27.0-32.0); Mean Corpuscular Volume 96.4 fL (81-99); Mean Platelet Vol. 9.6 fl (6.2-12.0); Monocyte# 0.32 X10^3/uL; Monocyte% 5.3 % (0-10); NRBC Flagged by Analyzer 0 % (0-5); Neutrophil # 3.81 X10^3/uL (2.7-7.7); Neutrophil % 63.3 % (47-70); Platelet Count 261 K/mm3 (150-450); RBC Distribution Width CV 12.1 % (11.6-14.6); RBC Distribution Width SD 41.9 fl (35.1-43.9); Red Blood Count 4.13 M/mm3 (4.2-5.4)
[2019-06-07 18:08] LABS: ALB/GLOB Ratio 1.6 RATIO (0.9-2.4); AST(SGOT) 18 U/L (15-37); Alanine Aminotransfer ALT/SGPT 23 U/L (13-56); Albumin, Serum 4.2 g/dL (3.2-5.0); Alkaline Phosphatase 63 U/L (45-117); Anion Gap 6 (5-15); BUN 14 mg/dL (7-18); Calcium,Total 9.3 mg/dL (8.5-10.1); Chloride 104 mmol/L (98-107); Creatinine, Serum 0.82 mg/dL (0.55-1.02); EST Glomerular Filtration Rate 73 mL/min (>60); Est Glom Filt Rate - Afr Amer 88 mL/min (>60); Globulin 2.7 g/dL (2.2-4.2); Glucose 86 mg/dL (74-106); Potassium 3.8 mmol/L (3.5-5.1); Protein, Total 6.9 g/dL (6.4-8.2); Sodium Level 138 mmol/L (136-145)
== END ==
PROVIDERS: Family Provider Family Medicine; PCP Family Medicine; Referring Provider Internal Medicine Rheumatology; Visit Provider Internal Medicine Rheumatology
DX: M06.4 Inflammatory polyarthropathy (principal); Z79.899 Other long term (current) drug therapy; R76.8 Other specified abnormal immunological findings in serum; M18.12 Unilateral primary osteoarthritis of first carpometacarpal joint, left hand; M47.897 Other spondylosis, lumbosacral region; M21.40 Flat foot [pes planus] (acquired), unspecified foot; K21.9 Gastro-esophageal reflux disease without esophagitis; N80.0 Endometriosis of uterus; L30.9 Dermatitis, unspecified
CPT/HCPCS: 36415; 80053; 85025

== ENCOUNTER → 2019-09-06 14:09 | Outpatient (CLI) | payer MEDICARE, OTHER, SELFPAY ==
--- NOTE | 2019-09-06 14:28 | RAD_ITS ---
STUDY: X-RAY - PELVIS REASON FOR EXAM: Female, 69 years old. inflammatory polyarthropathy TECHNIQUE: One view of the pelvis was obtained. COMPARISON: None. FINDINGS: Moderate stool in the visualized colon. There is mild degenerative changes of the bilateral hips. No acute fracture or dislocation identified. There is phlebolith seen within the pelvis. There is scoliotic curvature to the visualized lumbar spine. Degenerative changes of the visualized lumbar spine. There is mild degenerative changes of the sacroiliac joints. RAD/Pelvis 1 or 2 Views IMPRESSION: Degenerative changes are present. There is no acute fracture or dislocation. Electronically Signed: Bernardino Guerrero, at 4:03 EST Tel , Service support ,
[2019-09-06 15:47] LABS: Absolute Lymphocyte Count 1.47 X10^3/uL (0.83-4.51); Absolute Neutrophil Count 3.7 X10^3/uL (2.0-7.7); Basophil# 0.06 X10^3/uL; Eosinophil# 0.12 X10^3/uL; Eosinophils% 2.1 % (0-5); Hematocrit 39.4 % (37-47); Hemoglobin 13.5 g/dL (12.0-15.0); Lymphocyte # 1.47 X10^3/ul (4.0); Lymphocyte % 25.6 % (19-41); Mean Corp Hgb Conc 34.3 g/dL (32-36); Mean Corpuscular Hgb 32.7 pg (27.0-32.0); Mean Corpuscular Volume 95.4 fL (81-99); Mean Platelet Vol. 9.3 fl (6.2-12.0); Monocyte# 0.33 X10^3/uL; Monocyte% 5.7 % (0-10); NRBC Flagged by Analyzer 0 % (0-5); Neutrophil # 3.74 X10^3/uL (2.7-7.7); Neutrophil % 65.3 % (47-70); Platelet Count 238 K/mm3 (150-450); RBC Distribution Width CV 12.5 % (11.6-14.6); RBC Distribution Width SD 42.9 fl (35.1-43.9); Red Blood Count 4.13 M/mm3 (4.2-5.4); White Blood Count 5.7 K/mm3 (4.4-11.0)
[2019-09-06 16:05] LABS: ALB/GLOB Ratio 1.3 RATIO (0.9-2.4); AST(SGOT) 14 U/L (15-37); Alanine Aminotransfer ALT/SGPT 21 U/L (13-56); Alkaline Phosphatase 61 U/L (45-117); Anion Gap 2 (5-15); BUN 9 mg/dL (7-18); BUN/Creat Ratio 10.2 RATIO (10-20); Calcium,Total 9.5 mg/dL (8.5-10.1); Chloride 107 mmol/L (98-107); Creatinine, Serum 0.88 mg/dL (0.55-1.02); EST Glomerular Filtration Rate 68 mL/min (>60); Est Glom Filt Rate - Afr Amer 82 mL/min (>60); Glucose 95 mg/dL (74-106); Potassium 3.6 mmol/L (3.5-5.1); Sodium Level 141 mmol/L (136-145)
== END ==
PROVIDERS: PCP Family Medicine; Referring Provider Internal Medicine Rheumatology; Visit Provider Internal Medicine Rheumatology
DX: M06.4 Inflammatory polyarthropathy (principal); Z79.899 Other long term (current) drug therapy; R76.8 Other specified abnormal immunological findings in serum; M18.12 Unilateral primary osteoarthritis of first carpometacarpal joint, left hand; M47.897 Other spondylosis, lumbosacral region; M21.40 Flat foot [pes planus] (acquired), unspecified foot; N80.0 Endometriosis of uterus; L30.9 Dermatitis, unspecified; K21.9 Gastro-esophageal reflux disease without esophagitis
CPT/HCPCS: 36415; 72170; 80053; 85025

== ENCOUNTER → 2019-12-07 10:41 | Outpatient (CLI) | payer MEDICARE, OTHER, SELFPAY ==
[2019-12-07 12:42] LABS: Absolute Lymphocyte Count 1.76 X10^3/uL (0.83-4.51); Absolute Neutrophil Count 3.8 X10^3/uL (2.0-7.7); Basophil# 0.08 X10^3/uL; Basophil% 1.3 % (0-1); Eosinophil# 0.17 X10^3/uL; Eosinophils% 2.7 % (0-5); Hematocrit 39.4 % (37-47); Hemoglobin 13.2 g/dL (12.0-15.0); Lymphocyte # 1.76 X10^3/ul (4.0); Lymphocyte % 28.3 % (19-41); Mean Corp Hgb Conc 33.5 g/dL (32-36); Mean Corpuscular Hgb 32.4 pg (27.0-32.0); Mean Corpuscular Volume 96.8 fL (81-99); Mean Platelet Vol. 9.5 fl (6.2-12.0); Monocyte# 0.41 X10^3/uL; Monocyte% 6.6 % (0-10); NRBC Flagged by Analyzer 0 % (0-5); Neutrophil # 3.79 X10^3/uL (2.7-7.7); Neutrophil % 60.8 % (47-70); Platelet Count 254 K/mm3 (150-450); RBC Distribution Width CV 12.4 % (11.6-14.6); RBC Distribution Width SD 43.2 fl (35.1-43.9); Red Blood Count 4.07 M/mm3 (4.2-5.4); White Blood Count 6.2 K/mm3 (4.4-11.0)
[2019-12-07 12:44] LABS: ALB/GLOB Ratio 1.3 RATIO (0.9-2.4); AST(SGOT) 18 U/L (15-37); Alanine Aminotransfer ALT/SGPT 23 U/L (13-56); Albumin, Serum 3.9 g/dL (3.2-5.0); Alkaline Phosphatase 67 U/L (45-117); BUN 13 mg/dL (7-18); BUN/Creat Ratio 14.7 RATIO (10-20); Calcium,Total 9.2 mg/dL (8.5-10.1); Creatinine, Serum 0.88 mg/dL (0.55-1.02); EST Glomerular Filtration Rate 67 mL/min (>60); Est Glom Filt Rate - Afr Amer 81 mL/min (>60); Globulin 2.9 g/dL (2.2-4.2); Glucose 82 mg/dL (74-106); Potassium 4.2 mmol/L (3.5-5.1); Protein, Total 6.8 g/dL (6.4-8.2); Sodium Level 140 mmol/L (136-145)
[2019-12-07 12:45] LABS: Anion Gap 4 (5-15); Chloride 106 mmol/L (98-107)
== END ==
PROVIDERS: PCP Family Medicine; Referring Provider Internal Medicine Rheumatology; Visit Provider Internal Medicine Rheumatology
DX: M06.4 Inflammatory polyarthropathy (principal); Z79.899 Other long term (current) drug therapy; R76.8 Other specified abnormal immunological findings in serum; M18.12 Unilateral primary osteoarthritis of first carpometacarpal joint, left hand; M47.897 Other spondylosis, lumbosacral region; M21.40 Flat foot [pes planus] (acquired), unspecified foot; K21.9 Gastro-esophageal reflux disease without esophagitis; N80.0 Endometriosis of uterus; L30.9 Dermatitis, unspecified
CPT/HCPCS: 36415; 80053; 85025

== ENCOUNTER → 2020-01-03 11:18 | Outpatient (CLI) | payer MEDICARE, OTHER, SELFPAY ==
[2020-01-03 15:44] LABS: Absolute Lymphocyte Count 1.73 X10^3/uL (0.83-4.51); Absolute Neutrophil Count 3.7 X10^3/uL (2.0-7.7); Basophil# 0.07 X10^3/uL; Basophil% 1.1 % (0-1); Eosinophil# 0.19 X10^3/uL; Eosinophils% 3.1 % (0-5); Hematocrit 40.9 % (37-47); Hemoglobin 13.9 g/dL (12.0-15.0); Lymphocyte # 1.73 X10^3/ul (4.0); Mean Corpuscular Hgb 33.4 pg (27.0-32.0); Mean Corpuscular Volume 98.3 fL (81-99); Mean Platelet Vol. 9.8 fl (6.2-12.0); Monocyte# 0.44 X10^3/uL; Monocyte% 7.1 % (0-10); NRBC Flagged by Analyzer 0 % (0-5); Neutrophil # 3.72 X10^3/uL (2.7-7.7); Neutrophil % 60.4 % (47-70); Platelet Count 250 K/mm3 (150-450); RBC Distribution Width CV 12.2 % (11.6-14.6); RBC Distribution Width SD 44.2 fl (35.1-43.9); Red Blood Count 4.16 M/mm3 (4.2-5.4); White Blood Count 6.2 K/mm3 (4.4-11.0)
[2020-01-03 16:21] LABS: ALB/GLOB Ratio 1.5 RATIO (0.9-2.4); AST(SGOT) 19 U/L (15-37); Alanine Aminotransfer ALT/SGPT 23 U/L (13-56); Alkaline Phosphatase 68 U/L (45-117); Anion Gap 8 (5-15); BUN 12 mg/dL (7-18); BUN/Creat Ratio 13.9 RATIO (10-20); Calcium,Total 9.7 mg/dL (8.5-10.1); Chloride 103 mmol/L (98-107); Creatinine, Serum 0.86 mg/dL (0.55-1.02); EST Glomerular Filtration Rate 69 mL/min (>60); Est Glom Filt Rate - Afr Amer 84 mL/min (>60); Globulin 2.7 g/dL (2.2-4.2); Glucose 71 mg/dL (74-106); Potassium 3.8 mmol/L (3.5-5.1); Protein, Total 6.7 g/dL (6.4-8.2); Sodium Level 141 mmol/L (136-145)
== END ==
PROVIDERS: PCP Family Medicine; Referring Provider Internal Medicine Rheumatology; Visit Provider Internal Medicine Rheumatology
DX: M06.4 Inflammatory polyarthropathy (principal); Z79.899 Other long term (current) drug therapy; R76.8 Other specified abnormal immunological findings in serum; M18.12 Unilateral primary osteoarthritis of first carpometacarpal joint, left hand; M47.897 Other spondylosis, lumbosacral region; M21.40 Flat foot [pes planus] (acquired), unspecified foot; K21.9 Gastro-esophageal reflux disease without esophagitis; N80.0 Endometriosis of uterus; L30.9 Dermatitis, unspecified
CPT/HCPCS: 36415; 80053; 85025

== ENCOUNTER → 2020-03-26 11:38 | Outpatient (CLI) | payer MEDICARE, OTHER, SELFPAY ==
[2020-03-26 15:47] LABS: Absolute Lymphocyte Count 1.83 X10^3/uL (0.83-4.51); Absolute Neutrophil Count 3.8 X10^3/uL (2.0-7.7); Basophil# 0.06 X10^3/uL; Basophil% 0.9 % (0-1); Eosinophil# 0.23 X10^3/uL; Eosinophils% 3.6 % (0-5); Hematocrit 40.2 % (37-47); Lymphocyte # 1.83 X10^3/ul (4.0); Lymphocyte % 28.9 % (19-41); Mean Corp Hgb Conc 34.8 g/dL (32-36); Mean Corpuscular Hgb 33.2 pg (27.0-32.0); Mean Corpuscular Volume 95.3 fL (81-99); Mean Platelet Vol. 9.9 fl (6.2-12.0); Monocyte# 0.43 X10^3/uL; Monocyte% 6.8 % (0-10); NRBC Flagged by Analyzer 0 % (0-5); Neutrophil # 3.77 X10^3/uL (2.7-7.7); Neutrophil % 59.5 % (47-70); Platelet Count 245 K/mm3 (150-450); RBC Distribution Width CV 12.2 % (11.6-14.6); RBC Distribution Width SD 41.3 fl (35.1-43.9); Red Blood Count 4.22 M/mm3 (4.2-5.4); White Blood Count 6.3 K/mm3 (4.4-11.0)
[2020-03-26 15:58] LABS: ALB/GLOB Ratio 1.3 RATIO (0.9-2.4); AST(SGOT) 19 U/L (15-37); Alanine Aminotransfer ALT/SGPT 24 U/L (13-56); Alkaline Phosphatase 66 U/L (45-117); Anion Gap 5 (5-15); BUN 11 mg/dL (7-18); Calcium,Total 9.3 mg/dL (8.5-10.1); Chloride 104 mmol/L (98-107); Creatinine, Serum 0.85 mg/dL (0.55-1.02); EST Glomerular Filtration Rate 70 mL/min (>60); Est Glom Filt Rate - Afr Amer 85 mL/min (>60); Glucose 82 mg/dL (74-106); Potassium 3.8 mmol/L (3.5-5.1); Sodium Level 139 mmol/L (136-145)
== END ==
PROVIDERS: PCP Family Medicine; Referring Provider Internal Medicine Rheumatology; Visit Provider Internal Medicine Rheumatology
DX: M06.4 Inflammatory polyarthropathy (principal); Z79.899 Other long term (current) drug therapy; R76.8 Other specified abnormal immunological findings in serum; M18.12 Unilateral primary osteoarthritis of first carpometacarpal joint, left hand; M47.897 Other spondylosis, lumbosacral region; M21.40 Flat foot [pes planus] (acquired), unspecified foot; K21.9 Gastro-esophageal reflux disease without esophagitis; N80.0 Endometriosis of uterus; L30.9 Dermatitis, unspecified
CPT/HCPCS: 36415; 80053; 85025

== ENCOUNTER → 2020-06-18 10:24 | Outpatient (CLI) | payer MEDICARE, OTHER, SELFPAY ==
[2020-06-18 12:15] LABS: Absolute Lymphocyte Count 1.67 X10^3/uL (0.83-4.51); Absolute Neutrophil Count 3.6 X10^3/uL (2.0-7.7); Basophil# 0.07 X10^3/uL; Basophil% 1.2 % (0-1); Eosinophil# 0.21 X10^3/uL; Eosinophils% 3.6 % (0-5); Hemoglobin 13.5 g/dL (12.0-15.0); Lymphocyte # 1.67 X10^3/ul (4.0); Lymphocyte % 28.6 % (19-41); Mean Corp Hgb Conc 33.8 g/dL (32-36); Mean Corpuscular Hgb 32.3 pg (27.0-32.0); Mean Corpuscular Volume 95.7 fL (81-99); Mean Platelet Vol. 9.3 fl (6.2-12.0); Monocyte# 0.31 X10^3/uL; Monocyte% 5.3 % (0-10); NRBC Flagged by Analyzer 0 % (0-5); Neutrophil # 3.55 X10^3/uL (2.7-7.7); Platelet Count 263 K/mm3 (150-450); RBC Distribution Width CV 12.5 % (11.6-14.6); RBC Distribution Width SD 42.8 fl (35.1-43.9); Red Blood Count 4.18 M/mm3 (4.2-5.4); White Blood Count 5.8 K/mm3 (4.4-11.0)
[2020-06-18 12:29] LABS: ALB/GLOB Ratio 1.3 RATIO (0.9-2.4); AST(SGOT) 12 U/L (15-37); Alanine Aminotransfer ALT/SGPT 20 U/L (13-56); Alkaline Phosphatase 83 U/L (45-117); Anion Gap 5 (5-15); BUN 10 mg/dL (7-18); BUN/Creat Ratio 12.3 RATIO (10-20); Calcium,Total 9.1 mg/dL (8.5-10.1); Chloride 108 mmol/L (98-107); Creatinine, Serum 0.81 mg/dL (0.55-1.02); EST Glomerular Filtration Rate 74 mL/min (>60); Est Glom Filt Rate - Afr Amer 90 mL/min (>60); Globulin 3.1 g/dL (2.2-4.2); Glucose 85 mg/dL (74-106); Protein, Total 7.1 g/dL (6.4-8.2); Sodium Level 142 mmol/L (136-145)
== END ==
PROVIDERS: PCP Family Medicine; Referring Provider Internal Medicine Rheumatology; Visit Provider Internal Medicine Rheumatology
DX: M06.4 Inflammatory polyarthropathy (principal); Z79.899 Other long term (current) drug therapy; R76.8 Other specified abnormal immunological findings in serum; M18.12 Unilateral primary osteoarthritis of first carpometacarpal joint, left hand; M47.897 Other spondylosis, lumbosacral region; M21.40 Flat foot [pes planus] (acquired), unspecified foot; K21.9 Gastro-esophageal reflux disease without esophagitis; N80.0 Endometriosis of uterus; L30.9 Dermatitis, unspecified
CPT/HCPCS: 36415; 80053; 85025

== ENCOUNTER → 2020-09-04 10:25 | Outpatient (CLI) | payer MEDICARE, OTHER, SELFPAY ==
[2020-09-04 12:13] LABS: Absolute Lymphocyte Count 1.93 X10^3/uL (0.83-4.51); Absolute Neutrophil Count 3.3 X10^3/uL (2.0-7.7); Basophil# 0.07 X10^3/uL; Basophil% 1.2 % (0-1); Eosinophil# 0.26 X10^3/uL; Eosinophils% 4.4 % (0-5); Hematocrit 40.6 % (37-47); Hemoglobin 14.1 g/dL (12.0-15.0); Lymphocyte # 1.93 X10^3/ul (4.0); Lymphocyte % 32.6 % (19-41); Mean Corp Hgb Conc 34.7 g/dL (32-36); Mean Corpuscular Hgb 33.5 pg (27.0-32.0); Mean Corpuscular Volume 96.4 fL (81-99); Mean Platelet Vol. 9.5 fl (6.2-12.0); Monocyte# 0.35 X10^3/uL; Monocyte% 5.9 % (0-10); NRBC Flagged by Analyzer 0 % (0-5); Neutrophil # 3.28 X10^3/uL (2.7-7.7); Neutrophil % 55.4 % (47-70); Platelet Count 259 K/mm3 (150-450); RBC Distribution Width CV 12.4 % (11.6-14.6); RBC Distribution Width SD 43.8 fl (35.1-43.9); Red Blood Count 4.21 M/mm3 (4.2-5.4); White Blood Count 5.9 K/mm3 (4.4-11.0)
[2020-09-04 12:47] LABS: ALB/GLOB Ratio 1.4 RATIO (0.9-2.4); AST(SGOT) 17 U/L (15-37); Alanine Aminotransfer ALT/SGPT 23 U/L (13-56); Albumin, Serum 4.1 g/dL (3.2-5.0); Alkaline Phosphatase 68 U/L (45-117); Anion Gap 3 (5-15); BUN 17 mg/dL (7-18); BUN/Creat Ratio 17.7 RATIO (10-20); Calcium,Total 9.4 mg/dL (8.5-10.1); Chloride 106 mmol/L (98-107); Creatinine, Serum 0.96 mg/dL (0.55-1.02); EST Glomerular Filtration Rate 61 mL/min (>60); Est Glom Filt Rate - Afr Amer 74 mL/min (>60); Globulin 2.9 g/dL (2.2-4.2); Glucose 90 mg/dL (74-106); Potassium 3.8 mmol/L (3.5-5.1); Sodium Level 140 mmol/L (136-145)
== END ==
PROVIDERS: PCP Family Medicine; Referring Provider Internal Medicine Rheumatology; Visit Provider Internal Medicine Rheumatology
DX: M06.4 Inflammatory polyarthropathy (principal); Z79.899 Other long term (current) drug therapy; R76.8 Other specified abnormal immunological findings in serum; M18.12 Unilateral primary osteoarthritis of first carpometacarpal joint, left hand; M47.897 Other spondylosis, lumbosacral region; M21.40 Flat foot [pes planus] (acquired), unspecified foot; K21.9 Gastro-esophageal reflux disease without esophagitis; N80.0 Endometriosis of uterus; L30.9 Dermatitis, unspecified
CPT/HCPCS: 36415; 80053; 85025

== ENCOUNTER → 2020-12-03 09:49 | Outpatient (CLI) | payer MEDICARE, OTHER, SELFPAY ==
[2020-12-03 12:12] LABS: Absolute Lymphocyte Count 1.75 X10^3/uL (0.83-4.51); Absolute Neutrophil Count 3.4 X10^3/uL (2.0-7.7); Basophil# 0.07 X10^3/uL; Basophil% 1.2 % (0-1); Eosinophil# 0.17 X10^3/uL; Hematocrit 41.4 % (37-47); Hemoglobin 14.1 g/dL (12.0-15.0); Lymphocyte # 1.75 X10^3/ul (0.83-4.51); Lymphocyte % 30.5 % (19-41); Mean Corp Hgb Conc 34.1 g/dL (32-36); Mean Corpuscular Hgb 31.7 pg (27.0-32.0); Mean Platelet Vol. 9.3 fl (6.2-12.0); Monocyte# 0.35 X10^3/uL; Monocyte% 6.1 % (0-10); NRBC Flagged by Analyzer 0 % (0-5); Neutrophil # 3.38 X10^3/uL (2.7-7.7); Platelet Count 240 K/mm3 (150-450); RBC Distribution Width SD 41.1 fl (35.1-43.9); Red Blood Count 4.45 M/mm3 (4.2-5.4); White Blood Count 5.7 K/mm3 (4.4-11.0)
[2020-12-03 12:27] LABS: ALB/GLOB Ratio 1.3 RATIO (0.9-2.4); AST(SGOT) 19 U/L (15-37); Alanine Aminotransfer ALT/SGPT 24 U/L (13-56); Albumin, Serum 4.1 g/dL (3.2-5.0); Alkaline Phosphatase 65 U/L (45-117); Anion Gap 5 (5-15); BUN 14 mg/dL (7-18); BUN/Creat Ratio 15.5 RATIO (10-20); Calcium,Total 9.6 mg/dL (8.5-10.1); Chloride 104 mmol/L (98-107); EST Glomerular Filtration Rate 65 mL/min (>60); Est Glom Filt Rate - Afr Amer 79 mL/min (>60); Globulin 3.2 g/dL (2.2-4.2); Glucose 76 mg/dL (74-106); Potassium 3.9 mmol/L (3.5-5.1); Protein, Total 7.3 g/dL (6.4-8.2); Sodium Level 139 mmol/L (136-145)
== END ==
PROVIDERS: PCP Family Medicine; Referring Provider Internal Medicine Rheumatology; Visit Provider Internal Medicine Rheumatology
DX: M06.4 Inflammatory polyarthropathy (principal); Z79.899 Other long term (current) drug therapy; R76.8 Other specified abnormal immunological findings in serum; M18.12 Unilateral primary osteoarthritis of first carpometacarpal joint, left hand; M47.897 Other spondylosis, lumbosacral region; M21.40 Flat foot [pes planus] (acquired), unspecified foot; K21.9 Gastro-esophageal reflux disease without esophagitis; N80.0 Endometriosis of uterus; L30.9 Dermatitis, unspecified
CPT/HCPCS: 36415; 80053; 85025

== ENCOUNTER → 2021-03-25 09:18 | Outpatient (CLI) | payer MEDICARE, OTHER, SELFPAY ==
[2021-03-25 10:06] LABS: Absolute Lymphocyte Count 1.68 X10^3/uL (0.83-4.51); Absolute Neutrophil Count 3.2 X10^3/uL (2.0-7.7); Basophil# 0.08 X10^3/uL; Basophil% 1.4 % (0-1); Eosinophil# 0.24 X10^3/uL; Eosinophils% 4.3 % (0-5); Hematocrit 40.5 % (37-47); Lymphocyte # 1.68 X10^3/ul (0.83-4.51); Lymphocyte % 30.3 % (19-41); Mean Corp Hgb Conc 34.6 g/dL (32-36); Mean Corpuscular Volume 95.5 fL (81-99); Mean Platelet Vol. 9.2 fl (6.2-12.0); Monocyte# 0.35 X10^3/uL; Monocyte% 6.3 % (0-10); NRBC Flagged by Analyzer 0 % (0-5); Neutrophil # 3.18 X10^3/uL (2.7-7.7); Neutrophil % 57.3 % (47-70); Platelet Count 237 K/mm3 (150-450); RBC Distribution Width CV 12.4 % (11.6-14.6); RBC Distribution Width SD 42.7 fl (35.1-43.9); Red Blood Count 4.24 M/mm3 (4.2-5.4); White Blood Count 5.6 K/mm3 (4.4-11.0)
[2021-03-25 10:44] LABS: ALB/GLOB Ratio 1.1 RATIO (0.9-2.4); AST(SGOT) 22 U/L (15-37); Alanine Aminotransfer ALT/SGPT 27 U/L (13-56); Albumin, Serum 3.7 g/dL (3.2-5.0); Alkaline Phosphatase 69 U/L (45-117); Anion Gap 5 (5-15); BUN 14 mg/dL (7-18); BUN/Creat Ratio 15.2 RATIO (10-20); Calcium,Total 9.6 mg/dL (8.5-10.1); Chloride 105 mmol/L (98-107); Creatinine, Serum 0.92 mg/dL (0.55-1.02); EST Glomerular Filtration Rate 63 mL/min (>60); Est Glom Filt Rate - Afr Amer 77 mL/min (>60); Globulin 3.3 g/dL (2.2-4.2); Glucose 92 mg/dL (74-106); Potassium 3.8 mmol/L (3.5-5.1); Sodium Level 139 mmol/L (136-145)
== END ==
PROVIDERS: PCP Family Medicine; Referring Provider Internal Medicine Rheumatology; Visit Provider Internal Medicine Rheumatology
DX: M06.4 Inflammatory polyarthropathy (principal); R76.8 Other specified abnormal immunological findings in serum; M18.12 Unilateral primary osteoarthritis of first carpometacarpal joint, left hand; M47.897 Other spondylosis, lumbosacral region; M21.40 Flat foot [pes planus] (acquired), unspecified foot; K21.9 Gastro-esophageal reflux disease without esophagitis; N80.0 Endometriosis of uterus; L30.9 Dermatitis, unspecified; Z79.899 Other long term (current) drug therapy
CPT/HCPCS: 36415; 80053; 85025

== ENCOUNTER → 2021-06-17 10:59 | Outpatient (CLI) | payer MEDICARE, OTHER, SELFPAY ==
[2021-06-17 12:40] LABS: Absolute Lymphocyte Count 1.86 X10^3/uL (0.83-4.51); Absolute Neutrophil Count 3.1 X10^3/uL (2.0-7.7); Basophil# 0.05 X10^3/uL; Basophil% 0.9 % (0-1); Eosinophil# 0.25 X10^3/uL; Eosinophils% 4.5 % (0-5); Hematocrit 39.4 % (37-47); Hemoglobin 13.8 g/dL (12.0-15.0); Lymphocyte # 1.86 X10^3/ul (0.83-4.51); Lymphocyte % 33.3 % (19-41); Mean Corpuscular Hgb 33.2 pg (27.0-32.0); Mean Corpuscular Volume 94.7 fL (81-99); Mean Platelet Vol. 9.3 fl (6.2-12.0); Monocyte# 0.31 X10^3/uL; Monocyte% 5.6 % (0-10); NRBC Flagged by Analyzer 0 % (0-5); Neutrophil # 3.09 X10^3/uL (2.7-7.7); Neutrophil % 55.3 % (47-70); Platelet Count 249 K/mm3 (150-450); RBC Distribution Width CV 12.5 % (11.6-14.6); RBC Distribution Width SD 43.1 fl (35.1-43.9); Red Blood Count 4.16 M/mm3 (4.2-5.4); White Blood Count 5.6 K/mm3 (4.4-11.0)
[2021-06-17 13:28] LABS: ALB/GLOB Ratio 1.3 RATIO (0.9-2.4); AST(SGOT) 22 U/L (15-37); Alanine Aminotransfer ALT/SGPT 26 U/L (13-56); Albumin, Serum 4.1 g/dL (3.2-5.0); Alkaline Phosphatase 68 U/L (45-117); Anion Gap 6 (5-15); BUN 16 mg/dL (7-18); BUN/Creat Ratio 19.3 RATIO (10-20); Calcium,Total 9.4 mg/dL (8.5-10.1); Chloride 104 mmol/L (98-107); Creatinine, Serum 0.83 mg/dL (0.55-1.02); EST Glomerular Filtration Rate 72 mL/min (>60); Est Glom Filt Rate - Afr Amer 87 mL/min (>60); Globulin 3.1 g/dL (2.2-4.2); Glucose 83 mg/dL (74-106); Potassium 3.7 mmol/L (3.5-5.1); Protein, Total 7.2 g/dL (6.4-8.2); Sodium Level 140 mmol/L (136-145)
== END ==
PROVIDERS: PCP Family Medicine; Referring Provider Internal Medicine Rheumatology; Visit Provider Internal Medicine Rheumatology
DX: M06.4 Inflammatory polyarthropathy (principal); Z79.899 Other long term (current) drug therapy; R76.8 Other specified abnormal immunological findings in serum; M18.12 Unilateral primary osteoarthritis of first carpometacarpal joint, left hand; M47.897 Other spondylosis, lumbosacral region; M21.40 Flat foot [pes planus] (acquired), unspecified foot; K21.9 Gastro-esophageal reflux disease without esophagitis; N80.0 Endometriosis of uterus; L30.9 Dermatitis, unspecified
CPT/HCPCS: 36415; 80053; 85025

== ENCOUNTER 2021-09-23 10:46 | Outpatient (CLI) | payer MEDICARE, OTHER, SELFPAY ==
[2021-09-23 12:16] LABS: Absolute Lymphocyte Count 1.77 X10^3/uL (0.83-4.51); Absolute Neutrophil Count 3.6 X10^3/uL (2.0-7.7); Basophil# 0.07 X10^3/uL; Basophil% 1.2 % (0-1); Eosinophil# 0.17 X10^3/uL; Eosinophils% 2.8 % (0-5); Hematocrit 39.4 % (37-47); Hemoglobin 14.3 g/dL (12.0-15.0); Lymphocyte # 1.77 X10^3/ul (0.83-4.51); Lymphocyte % 29.5 % (19-41); Mean Corp Hgb Conc 36.3 g/dL (32-36); Mean Corpuscular Hgb 33.8 pg (27.0-32.0); Mean Corpuscular Volume 93.1 fL (81-99); Mean Platelet Vol. 9.2 fl (6.2-12.0); Monocyte# 0.35 X10^3/uL; Monocyte% 5.8 % (0-10); NRBC Flagged by Analyzer 0 % (0-5); Neutrophil # 3.63 X10^3/uL (2.7-7.7); Neutrophil % 60.5 % (47-70); Platelet Count 239 K/mm3 (150-450); RBC Distribution Width CV 12.3 % (11.6-14.6); RBC Distribution Width SD 41.6 fl (35.1-43.9); Red Blood Count 4.23 M/mm3 (4.2-5.4)
[2021-09-23 12:54] LABS: ALB/GLOB Ratio 1.4 RATIO (0.9-2.4); AST(SGOT) 19 U/L (15-37); Alanine Aminotransfer ALT/SGPT 24 U/L (13-56); Albumin, Serum 4.1 g/dL (3.2-5.0); Alkaline Phosphatase 56 U/L (45-117); Anion Gap 4 (5-15); BUN 18 mg/dL (7-18); BUN/Creat Ratio 20.2 RATIO (10-20); Calcium,Total 9.9 mg/dL (8.5-10.1); Chloride 103 mmol/L (98-107); Creatinine, Serum 0.89 mg/dL (0.55-1.02); EST Glomerular Filtration Rate 66 mL/min (>60); Est Glom Filt Rate - Afr Amer 80 mL/min (>60); Glucose 87 mg/dL (74-106); Potassium 3.7 mmol/L (3.5-5.1); Protein, Total 7.1 g/dL (6.4-8.2); Sodium Level 139 mmol/L (136-145)
== END 2021-09-23 23:59 | disposition home or self-care (01) ==
LOC: MTLAB 10:49
PROVIDERS: PCP Family Medicine; Referring Provider Internal Medicine Rheumatology; Visit Provider Internal Medicine Rheumatology
DX: M06.4 Inflammatory polyarthropathy (principal); Z79.899 Other long term (current) drug therapy; R76.8 Other specified abnormal immunological findings in serum; M18.12 Unilateral primary osteoarthritis of first carpometacarpal joint, left hand; M47.897 Other spondylosis, lumbosacral region; M21.40 Flat foot [pes planus] (acquired), unspecified foot; K21.9 Gastro-esophageal reflux disease without esophagitis; N80.0 Endometriosis of uterus; L30.9 Dermatitis, unspecified
CPT/HCPCS: 36415; 80053; 85025

== ENCOUNTER → 2021-12-22 | Outpatient (CLI) | payer MEDICARE, OTHER, SELFPAY ==
[2021-12-22 12:12] LABS: Erythrocyte Sedimentation Rate 10 mm/hr (0-30)
[2021-12-22 12:14] LABS: Absolute Lymphocyte Count 1.38 X10^3/uL (0.83-4.51); Absolute Neutrophil Count 5.3 X10^3/uL (2.0-7.7); Basophil# 0.08 X10^3/uL; Basophil% 1.1 % (0-1); Eosinophil# 0.17 X10^3/uL; Eosinophils% 2.3 % (0-5); Hematocrit 38.2 % (37-47); Hemoglobin 13.4 g/dL (12.0-15.0); Lymphocyte # 1.38 X10^3/ul (0.83-4.51); Lymphocyte % 18.5 % (19-41); Mean Corp Hgb Conc 35.1 g/dL (32-36); Mean Corpuscular Hgb 33.3 pg (27.0-32.0); Mean Platelet Vol. 9.3 fl (6.2-12.0); Monocyte# 0.51 X10^3/uL; Monocyte% 6.8 % (0-10); NRBC Flagged by Analyzer 0 % (0-5); Neutrophil # 5.31 X10^3/uL (2.7-7.7); Platelet Count 246 K/mm3 (150-450); RBC Distribution Width CV 12.4 % (11.6-14.6); RBC Distribution Width SD 43.1 fl (35.1-43.9); Red Blood Count 4.02 M/mm3 (4.2-5.4); White Blood Count 7.5 K/mm3 (4.4-11.0)
[2021-12-22 12:19] LABS: ALB/GLOB Ratio 1.3 RATIO (0.9-2.4); AST(SGOT) 16 U/L (15-37); Alanine Aminotransfer ALT/SGPT 22 U/L (13-56); Albumin, Serum 3.8 g/dL (3.2-5.0); Alkaline Phosphatase 62 U/L (45-117); Anion Gap 4 (5-15); BUN 14 mg/dL (7-18); BUN/Creat Ratio 14.2 RATIO (10-20); Calcium,Total 9.7 mg/dL (8.5-10.1); Chloride 105 mmol/L (98-107); Creatinine, Serum 0.98 mg/dL (0.55-1.02); EST Glomerular Filtration Rate 59 mL/min (>60); Est Glom Filt Rate - Afr Amer 71 mL/min (>60); Glucose 90 mg/dL (74-106); Potassium 3.7 mmol/L (3.5-5.1); Protein, Total 6.8 g/dL (6.4-8.2); Sodium Level 139 mmol/L (136-145)
== END | disposition home or self-care (01) ==
PROVIDERS: PCP Family Medicine; Visit Provider Internal Medicine Rheumatology
DX: M06.4 Inflammatory polyarthropathy (principal); R76.8 Other specified abnormal immunological findings in serum; M18.12 Unilateral primary osteoarthritis of first carpometacarpal joint, left hand; M47.897 Other spondylosis, lumbosacral region; M21.40 Flat foot [pes planus] (acquired), unspecified foot; K21.9 Gastro-esophageal reflux disease without esophagitis; N80.0 Endometriosis of uterus; L30.9 Dermatitis, unspecified; Z79.899 Other long term (current) drug therapy
CPT/HCPCS: 36415; 80053; 85025; 85652; 86140

== ENCOUNTER → 2022-04-28 | Outpatient (CLI) | payer MEDICARE, OTHER, SELFPAY ==
[2022-04-28 15:19] LABS: Absolute Lymphocyte Count 2.28 X10^3/uL (0.83-4.51); Basophil# 0.08 X10^3/uL; Basophil% 1.1 % (0-1); Eosinophil# 0.29 X10^3/uL; Eosinophils% 4.1 % (0-5); Hematocrit 41.1 % (37-47); Hemoglobin 14.4 g/dL (12.0-15.0); Lymphocyte # 2.28 X10^3/ul (0.83-4.51); Lymphocyte % 32.2 % (19-41); Mean Corpuscular Hgb 32.5 pg (27.0-32.0); Mean Corpuscular Volume 92.8 fL (81-99); Mean Platelet Vol. 9.1 fl (6.2-12.0); Monocyte# 0.43 X10^3/uL; Monocyte% 6.1 % (0-10); NRBC Flagged by Analyzer 0 % (0-5); Neutrophil # 3.98 X10^3/uL (2.7-7.7); Neutrophil % 56.2 % (47-70); Platelet Count 240 K/mm3 (150-450); RBC Distribution Width CV 11.9 % (11.6-14.6); RBC Distribution Width SD 40.6 fl (35.1-43.9); Red Blood Count 4.43 M/mm3 (4.2-5.4); White Blood Count 7.1 K/mm3 (4.4-11.0)
[2022-04-28 15:21] LABS: Erythrocyte Sedimentation Rate 2 mm/hr (0-30)
[2022-04-28 15:37] LABS: ALB/GLOB Ratio 1.3 RATIO (0.9-2.4); AST(SGOT) 20 U/L (15-37); Alanine Aminotransfer ALT/SGPT 25 U/L (13-56); Albumin, Serum 3.9 g/dL (3.2-5.0); Alkaline Phosphatase 64 U/L (45-117); Anion Gap 4 (5-15); BUN 16 mg/dL (7-18); BUN/Creat Ratio 16.3 RATIO (10-20); CRP < 2.90 mg/L (0.0-3.0); Calcium,Total 9.3 mg/dL (8.5-10.1); Chloride 104 mmol/L (98-107); Creatinine, Serum 0.98 mg/dL (0.55-1.02); EST Glomerular Filtration Rate 59 mL/min (>60); Est Glom Filt Rate - Afr Amer 71 mL/min (>60); Globulin 3.1 g/dL (2.2-4.2); Glucose 81 mg/dL (74-106); Potassium 3.9 mmol/L (3.5-5.1); Sodium Level 139 mmol/L (136-145)
== END | disposition home or self-care (01) ==
PROVIDERS: PCP Family Medicine; Referring Provider Internal Medicine Rheumatology; Visit Provider Internal Medicine Rheumatology
DX: M06.4 Inflammatory polyarthropathy (principal); Z79.899 Other long term (current) drug therapy; M18.0 Bilateral primary osteoarthritis of first carpometacarpal joints; M18.12 Unilateral primary osteoarthritis of first carpometacarpal joint, left hand; M47.897 Other spondylosis, lumbosacral region; M21.40 Flat foot [pes planus] (acquired), unspecified foot; K21.9 Gastro-esophageal reflux disease without esophagitis; L30.9 Dermatitis, unspecified; N80.00 Endometriosis of the uterus, unspecified
CPT/HCPCS: 36415; 80053; 85025; 85652; 86140

== ENCOUNTER → 2022-07-28 | Outpatient (CLI) | payer MEDICARE, OTHER, SELFPAY ==
[2022-07-28 12:09] LABS: Absolute Lymphocyte Count 2.33 X10^3/uL (0.83-4.51); Absolute Neutrophil Count 4.9 X10^3/uL (2.0-7.7); Basophil# 0.09 X10^3/uL; Basophil% 1.1 % (0-1); Eosinophil# 0.26 X10^3/uL; Eosinophils% 3.2 % (0-5); Hematocrit 40.9 % (37-47); Hemoglobin 14.1 g/dL (12.0-15.0); Lymphocyte # 2.33 X10^3/ul (0.83-4.51); Mean Corp Hgb Conc 34.5 g/dL (32-36); Mean Corpuscular Hgb 32.5 pg (27.0-32.0); Mean Corpuscular Volume 94.2 fL (81-99); Mean Platelet Vol. 9.3 fl (6.2-12.0); Monocyte# 0.47 X10^3/uL; Monocyte% 5.8 % (0-10); NRBC Flagged by Analyzer 0 % (0-5); Neutrophil # 4.87 X10^3/uL (2.7-7.7); Neutrophil % 60.7 % (47-70); Platelet Count 250 K/mm3 (150-450); RBC Distribution Width CV 13.2 % (11.6-14.6); RBC Distribution Width SD 45.3 fl (35.1-43.9); Red Blood Count 4.34 M/mm3 (4.2-5.4)
[2022-07-28 12:48] LABS: ALB/GLOB Ratio 1.5 RATIO (0.9-2.4); AST(SGOT) 18 U/L (15-37); Alanine Aminotransfer ALT/SGPT 29 U/L (13-56); Albumin, Serum 4.2 g/dL (3.2-5.0); Alkaline Phosphatase 65 U/L (45-117); Anion Gap 8 (5-15); BUN 18 mg/dL (7-18); BUN/Creat Ratio 18.6 RATIO (10-20); Chloride 99 mmol/L (98-107); Creatinine, Serum 0.97 mg/dL (0.55-1.02); EST Glomerular Filtration Rate 60 mL/min (>60); Est Glom Filt Rate - Afr Amer 73 mL/min (>60); Globulin 2.8 g/dL (2.2-4.2); Glucose 95 mg/dL (74-106); Sodium Level 139 mmol/L (136-145)
== END | disposition home or self-care (01) ==
LOC: MTLAB 11:12
PROVIDERS: PCP Family Medicine; Referring Provider Internal Medicine Rheumatology; Visit Provider Internal Medicine Rheumatology
DX: M06.4 Inflammatory polyarthropathy (principal); Z79.899 Other long term (current) drug therapy; M18.0 Bilateral primary osteoarthritis of first carpometacarpal joints; M47.897 Other spondylosis, lumbosacral region; M21.40 Flat foot [pes planus] (acquired), unspecified foot; K21.9 Gastro-esophageal reflux disease without esophagitis; N80.00 Endometriosis of the uterus, unspecified; L30.9 Dermatitis, unspecified
CPT/HCPCS: 36415; 80053; 85025

== ENCOUNTER → 2022-08-28 | Outpatient (CLI) | payer MEDICARE, OTHER, SELFPAY ==
[2022-08-28 16:03] LABS: Erythrocyte Sedimentation Rate 2 mm/hr (0-30)
[2022-08-28 16:49] LABS: ALB/GLOB Ratio 1.3 RATIO (0.9-2.4); AST(SGOT) 20 U/L (15-37); Alanine Aminotransfer ALT/SGPT 24 U/L (13-56); Albumin, Serum 4.1 g/dL (3.2-5.0); Alkaline Phosphatase 66 U/L (45-117); Anion Gap 5 (5-15); BUN 14 mg/dL (7-18); BUN/Creat Ratio 14.4 RATIO (10-20); CRP < 2.90 mg/L (0.0-3.0); Calcium,Total 9.4 mg/dL (8.5-10.1); Chloride 107 mmol/L (98-107); Creatinine, Serum 0.97 mg/dL (0.55-1.02); EST Glomerular Filtration Rate 60 mL/min (>60); Est Glom Filt Rate - Afr Amer 72 mL/min (>60); Globulin 3.1 g/dL (2.2-4.2); Glucose 88 mg/dL (74-106); LDH 209 U/L (84-246); Potassium 3.7 mmol/L (3.5-5.1); Protein, Total 7.2 g/dL (6.4-8.2); Sodium Level 141 mmol/L (136-145)
[2022-08-31 15:07] LABS: Anti-Centromere B Ab <0.2 AI (0.0-0.9); Anti-Chromatin <0.2 AI (0.0-0.9); Anti-Jo <0.2 AI (0.0-0.9); Anti-Scleroderma-70 AB <0.2 AI (0.0-0.9); Endomysial Antibody IgA Negative (Negative); RNP Ab <0.2 AI (0.0-0.9); SJOGREN'S Anti-SS-A test < 0.2 AI (0.0-0.9); SJOGREN'S Anti-SS-B test < 0.2 AI (0.0-0.9); Smith Ab <0.2 AI (0.0-0.9)
[2022-08-31 19:20] LABS: Anti-Mitochondrial AB <20.0 Units (0.0-20.0); Anti-dsDNA Ab <1 IU/mL (0-9); Immunoglobulin A 32 mg/dL (64-422); t-Transglutaminase IgA <2 U/mL (0-3)
[2022-09-05 18:07] LABS: Albumin 4.2 g/dL (2.9-4.4); Alpha-1-Globulins 0.3 g/dL (0.0-0.4); Alpha-2-Globulins 0.8 g/dL (0.4-1.0); Cytoplasmic Ab (C-ANCA) <1:20 titer (Neg:<1:20); Gamma Globulin 0.7 g/dL (0.4-1.8); Immunoglobulin E 31 IU/mL (6-495); Immunoglobulin G 633 mg/dL (586-1602); Immunoglobulin M 46 mg/dL (26-217)
[2022-09-06 09:15] LABS: Anti-Smooth Muscle ABS 9 Units (0-19); Immunoglobulin A 27 mg/dL (64-422)
[2022-09-06 09:16] LABS: Gastrin, Serum < 10 pg/mL (0-115); Perinuclear Ab (P-ANCA) <1:20 titer (Neg:<1:20)
== END | disposition home or self-care (01) ==
LOC: LAB 14:15
PROVIDERS: PCP Family Medicine; Referring Provider Internal Medicine Gastroenterology; Visit Provider Internal Medicine Gastroenterology
DX: K21.9 Gastro-esophageal reflux disease without esophagitis (principal)
CPT/HCPCS: 36415; 80053; 82784; 82785; 82941; 83516; 83615; 84165; 85652; 86140; 86225; 86235; 86255; 86256; 86334

== ENCOUNTER → 2022-09-11 | Outpatient (CLI) | payer MEDICARE, OTHER, SELFPAY ==
--- NOTE | 2022-09-11 09:54 | NM_ITS ---
CLINICAL: 72-year-old female with history of clinical gastroparesis and esophageal reflux. SEMI-SOLID PHASE 99m Tc SULFUR COLLOID GASTRIC EMPTYING STUDY COMPARISON: None available FINDINGS: The patient was administered 1.2 mCi of 99m Tc sulfur colloid mixed with oatmeal and consumed per os. Image acquisitions in the anterior-posterior projections were obtained for 60 minutes. There is prompt visualization of the stomach. There is no gastroesophageal reflux identified. The T ? raw data emptying was calculated to be 22.72 minutes, (Normal: 12-56 minutes). NM/Gastric Emptying Study IMPRESSION: 1. NORMAL 99m Tc sulfur colloid semi-solid phase (oatmeal) gastric emptying imaging examination. A. There is normal and preserved semi-solid phase gastric emptying compared to normal controls. (Taryn et al, J Nucl Med Tech 38: 186, 2010). Electronically Signed: Cornelius De Guzman, at 17:35 EST ,
== END | disposition home or self-care (01) ==
LOC: NM 09:53
PROVIDERS: PCP Family Medicine; Referring Provider Internal Medicine Gastroenterology; Visit Provider Internal Medicine Gastroenterology
DX: K31.84 Gastroparesis (principal)
CPT/HCPCS: 78264; A9541

== ENCOUNTER → 2022-10-20 | Outpatient (CLI) | payer MEDICARE, OTHER, SELFPAY ==
[2022-10-20 12:41] LABS: Absolute Lymphocyte Count 1.77 X10^3/uL (0.83-4.51); Basophil# 0.11 X10^3/uL; Basophil% 1.9 % (0-1); Eosinophil# 0.34 X10^3/uL; Hematocrit 41.1 % (37-47); Hemoglobin 14.1 g/dL (12.0-15.0); Lymphocyte # 1.77 X10^3/ul (0.83-4.51); Lymphocyte % 31.2 % (19-41); Mean Corp Hgb Conc 34.3 g/dL (32-36); Mean Corpuscular Hgb 32.6 pg (27.0-32.0); Mean Corpuscular Volume 95.1 fL (81-99); Mean Platelet Vol. 9.4 fl (6.2-12.0); Monocyte# 0.41 X10^3/uL; Monocyte% 7.2 % (0-10); NRBC Flagged by Analyzer 0 % (0-5); Neutrophil # 3.03 X10^3/uL (2.7-7.7); Neutrophil % 53.5 % (47-70); Platelet Count 229 K/mm3 (150-450); RBC Distribution Width CV 11.6 % (11.6-14.6); RBC Distribution Width SD 40.1 fl (35.1-43.9); Red Blood Count 4.32 M/mm3 (4.2-5.4); White Blood Count 5.7 K/mm3 (4.4-11.0)
[2022-10-20 13:03] LABS: ALB/GLOB Ratio 1.2 RATIO (0.9-2.4); AST(SGOT) 17 U/L (15-37); Alanine Aminotransfer ALT/SGPT 24 U/L (13-56); Albumin, Serum 3.9 g/dL (3.2-5.0); Alkaline Phosphatase 66 U/L (45-117); Anion Gap 1 (5-15); BUN 16 mg/dL (7-18); BUN/Creat Ratio 17.5 RATIO (10-20); Calcium,Total 9.8 mg/dL (8.5-10.1); Chloride 105 mmol/L (98-107); Creatinine, Serum 0.91 mg/dL (0.55-1.02); EST Glomerular Filtration Rate 64 mL/min (>60); Est Glom Filt Rate - Afr Amer 78 mL/min (>60); Globulin 3.2 g/dL (2.2-4.2); Glucose 93 mg/dL (74-106); Potassium 3.8 mmol/L (3.5-5.1); Protein, Total 7.1 g/dL (6.4-8.2); Sodium Level 138 mmol/L (136-145)
== END | disposition home or self-care (01) ==
LOC: MTLAB 11:11
PROVIDERS: PCP Family Medicine; Referring Provider Internal Medicine Rheumatology; Visit Provider Internal Medicine Rheumatology
DX: M06.4 Inflammatory polyarthropathy (principal); Z79.899 Other long term (current) drug therapy
CPT/HCPCS: 36415; 80053; 85025

== ENCOUNTER → 2022-12-10 | Outpatient (CLI) | payer MEDICARE, OTHER, SELFPAY | END | disposition home or self-care (01) | PROVIDERS: PCP Family Medicine; Referring Provider Internal Medicine Gastroenterology; Visit Provider Internal Medicine Gastroenterology | DX: K21.9 Gastro-esophageal reflux disease without esophagitis (principal) ==

== ENCOUNTER → 2023-01-13 | Outpatient (CLI) | payer MEDICARE, OTHER, SELFPAY ==
[2023-01-13 15:27] LABS: Absolute Neutrophil Count 3.8 X10^3/uL (2.0-7.7); Basophil# 0.08 X10^3/uL; Basophil% 1.2 % (0-1); Eosinophil# 0.17 X10^3/uL; Eosinophils% 2.6 % (0-5); Hematocrit 39.9 % (37-47); Hemoglobin 13.8 g/dL (12.0-15.0); Lymphocyte % 32.3 % (19-41); Mean Corp Hgb Conc 34.6 g/dL (32-36); Mean Corpuscular Hgb 31.2 pg (27.0-32.0); Mean Corpuscular Volume 90.1 fL (81-99); Mean Platelet Vol. 9.2 fl (6.2-12.0); Monocyte# 0.36 X10^3/uL; Monocyte% 5.5 % (0-10); NRBC Flagged by Analyzer 0 % (0-5); Neutrophil # 3.79 X10^3/uL (2.7-7.7); Neutrophil % 58.2 % (47-70); Platelet Count 218 K/mm3 (150-450); RBC Distribution Width CV 11.9 % (11.6-14.6); RBC Distribution Width SD 39.3 fl (35.1-43.9); Red Blood Count 4.43 M/mm3 (4.2-5.4); White Blood Count 6.5 K/mm3 (4.4-11.0)
[2023-01-13 15:43] LABS: ALB/GLOB Ratio 1.2 RATIO (0.9-2.4); AST(SGOT) 18 U/L (15-37); Alanine Aminotransfer ALT/SGPT 22 U/L (13-56); Albumin, Serum 3.8 g/dL (3.2-5.0); Alkaline Phosphatase 73 U/L (45-117); Anion Gap 6 (5-15); BUN 15 mg/dL (7-18); BUN/Creat Ratio 16.5 RATIO (10-20); Calcium,Total 9.6 mg/dL (8.5-10.1); Chloride 106 mmol/L (98-107); Creatinine, Serum 0.91 mg/dL (0.55-1.02); EST Glomerular Filtration Rate 64 mL/min (>60); Est Glom Filt Rate - Afr Amer 78 mL/min (>60); Globulin 3.1 g/dL (2.2-4.2); Glucose 91 mg/dL (74-106); Potassium 3.6 mmol/L (3.5-5.1); Protein, Total 6.9 g/dL (6.4-8.2); Sodium Level 140 mmol/L (136-145)
== END | disposition home or self-care (01) ==
LOC: MTLAB 12:58
PROVIDERS: PCP Family Medicine; Referring Provider Internal Medicine Rheumatology; Visit Provider Internal Medicine Rheumatology
DX: M06.4 Inflammatory polyarthropathy (principal); Z79.899 Other long term (current) drug therapy
CPT/HCPCS: 36415; 80053; 85025

== ENCOUNTER 2023-04-07 10:05 | Outpatient (RCR) | payer MEDICARE, OTHER, SELFPAY ==
[2023-04-07 10:10] VITALS: BP 148/81; PULSE 70; RESP 16; TEMP 36.2; BMI 20.1
[2023-04-07 13:23] LABS: Erythrocyte Sedimentation Rate 1 mm/hr (0-30)
--- NOTE | 2023-04-07 13:26 | PCM.WC.HP ---
History of Present Illness Date of Service: 04/07/23 Chief Complaint: Open sores all over body very pruritic in nature since spring. 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 Started developing sores on her buttocks arms face ears and ankles. She was seen by dermatology and he told her he thought she had scabies but did not treat her but gave her a Kenalog shot which she self to help with the itching for a while. Primary care doctor put her on doxycycline but did not culture her. She felt neither of them helps take care of anything She is not diabetic but has many allergies to antibiotics therapy. [facility] Medical History (Updated 04/07/23 @ 13:34 by Olivia Myrick NP, [facility]) Abdominal pain Diverticulosis of sigmoid colon Endometriosis Hearing loss in right ear Hemorrhoids Hyperlipidemia Osteopenia Polyarthritis Urge incontinence of urine due to female genital prolapse Vestibular schwannoma Home Medications leucovorin calcium 15 mg tablet 15 mg PO DAILY 01/15/22 [History Last Taken Unknown] methotrexate sodium 2.5 mg tablet 2.5 mg PO QWEEK 01/15/22 [History Last Taken Unknown] biotin 10,000 mcg capsule 10,000 mcg PO DAILY 04/07/23 [History Last Taken Unknown] cyanocobalamin (B12)-cobamamide 5,000 mcg-100 mcg sublingual lozenge (B12) 3,000 cayetano sublingual DAILY 04/07/23 [History Last Taken Unknown] folic acid 1 mg tablet 2 mg PO DAILY 04/07/23 [History Last Taken Unknown] jwooueyt-hvn-gltr-FA-Ca carb-vit K 18 mg iron-400 mcg-500 mg tablet (One-A-Day Womens Formula) 1 tab PO DAILY 04/07/23 [History Last Taken Unknown] psyllium husk 3.4 gram/5.4 gram oral powder (Metamucil) 1 tbsp PO DAILY 04/07/23 [History Last Taken Unknown] tumeric 100 mg-elida 150 mg-olive 50 mg-oreg 150 mg-caprylate capsule cap PO DAILY 04/07/23 [History Last Taken Unknown] vitamin B complex (Vitamins B Complex capsule) 1 cap PO DAILY 04/07/23 [History Last Taken Unknown] Allergy/AdvReac Type Severity Reaction Status Date / Time levofloxacin Allergy Intermediate Rash Verified 04/07/23 10:35 Penicillins Allergy Intermediate unk Verified 01/15/22 12:36 Sulfa (Sulfonamide Allergy Intermediate unk Verified 04/07/23 10:35 Antibiotics) latex Allergy Mild Rash Verified 04/07/23 10:35 Seasonal Allergies: Uncoded Allergy Mild Other Verified 04/07/23 10:35 omeprazole [From Prilosec] AdvReac Nausea Verified 04/07/23 10:35 Surgical History H/O hysterectomy with oophorectomy Social History Smoking Status: Never smoker ROS Constitutional Constitutional: Reports systems reviewed and no addt'l complaints, except as documented Eyes Eyes: Reports systems reviewed and no addt'l complaints, except as documented ENT HEENT: Reports systems reviewed and no addt'l complaints, except as documented Cardiovascular Cardiovascular: Reports systems reviewed and no addt'l complaints, except as documented Respiratory/Chest Respiratory/Chest: Reports systems reviewed and no addt'l complaints, except as documented Gastrointestinal Gastrointestinal: Reports systems reviewed and no addt'l complaints, except as documented Genitourinary Genitourinary: Reports systems reviewed and no addt'l complaints, except as documented Musculoskeletal Musculoskeletal: Reports systems reviewed and no addt'l complaints, except as documented Integumentary Integumentary: Reports new lesions, non-healing lesions, pruritus and rash Neurologic Neurologic: Reports systems reviewed and no addt'l complaints, except as documented Psychiatric Psychiatric: Reports systems reviewed and no addt'l complaints, except as documented Endocrine Endocrinology: Reports systems reviewed and no addt'l complaints, except as documented Hematologic/Lymphatic Hematologic/Lymphatic: Reports systems reviewed and no addt'l complaints, except as documented Allergic/Immunologic Allergic/Immunologic: Reports systems reviewed and no addt'l complaints, except as documented Vital Signs Vital Signs Vital Signs: 04/07/23 10:10 Temperature 97.2 F L Temperature Source Temporal Pulse Rate 70 Respiratory Rate 16 Blood Pressure 148/81 H Blood Pressure Mean 103 Blood Pressure Source Monitor Blood Pressure Position Sitting Blood Pressure Location Left Arm Oxygen Delivery Method Room Air Weight Weight: 125 lb Body Mass Index (BMI) 20.1 Physical Exam Const oriented x3 General Appearance: cooperative Exam Limitations: no limitations HEENT normocephalic Head and Scalp: normal to inspection Face and Sinus: normal facial exam General Ear: hearing grossly impaired External Ear: external ears normal Eyes PERRL General Eye: normal appearance of both eyes Neck full ROM Resp normal respiratory effort Effort and Inspection: able to speak in complete sentences Cardio regular rate and regular rhythm Rate: regular rate Rhythm: regular rhythm GI Palpation: soft and no hepatosplenomegaly external exam normal Extremity normal to inspection General Extremity: normal exam except as noted Skin no rashes or lesions noted Neuro oriented x3 Psych Appearance: grossly normal Speech: normal speech Thought Content: normal thought content Judgement: judgement good Debridement Note Debridement Note Wound debrided: Right ankle cluster open wounds nonpressure Type of Debridement: Excisional debridement Anesthesia Used: 5% Lidocaine Gel Depth: Down to and including healthy tissue Percentage of wound debrided: 100 Instrument Used: 3mm curette Tissue Removed: Fibrin Amount of bleeding with debridement: Mild Bleeding Controlled with: Compression and gauze Patient tolerated procedure: Patient tolerated procedure well Post-Debridement Measurements and Additional Note: Post-Debridement Measurements/Treatment - Nurse 1 - General Ulcer Assessment Start: 04/07/23 10:10 Freq: Status: Active Protocol: YOMAIRA Activity Type Activity Date Activity User E-sign Co-sign Detail Recorded Client Recorded Date Recorded By Document 04/07/23 10:10 [facility] Desktop 04/07/23 10:31 [facility] 04/07/23 10:10 - Today's Visit Information Type of service Initial Visit Arrival Mode Ambulatory Transfer Assistance None Accompanied by Patient Identification Verified (Name & Yes ) Patient Requires Transmission-Based No Precautions Height and Weight Height 5 ft 6 in Weight 125 lb Weight in Pounds 125.0 lbs Weight Measurement Method Estimated by Patient Body Mass Index (BMI) 20.1 BMI Classification Normal BSA - Mauricio 1.64 Vital Signs Temperature (97.8 F-99.1 F) 97.2 F L Temperature Source Temporal Pulse Rate (60-100) 70 Pulse Location Monitor Respiratory Rate (12-18) 16 Respiratory rate source Observation Oxygen Delivery Method Room Air Blood Pressure (90/60-120/80) 148/81 H Blood Pressure Mean 103 Source Monitor Position Sitting Blood Pressure Location Left Arm History Since Last Visit- (Skip if this is Patient's initial visit) Left Footwear Regular Shoe Right Footwear Regular Shoe Pain Scale: 0-10 Numeric Is Patient Pain Free? Yes Communication Assessment Preferred language Tajik Licensed Practical Vocational Nurse Required No Able to Read Yes Able to Write Yes Communication Tools None Right Hearing Abillity Deaf Left Hearing Abillity Hard of Hearing Visual Assistive Devices None Teaching Assessment Preferences Verbal,Written, Audio/Visual, Demonstration Barriers to Learning None Readiness To Learn Excellent Willingness to Engage in Self Management High Activies Readiness to Engage in Self Management High Activities Anxiety Level Calm Cooperation Cooperative Perception Coherent Interest in Health Problem Asks Questions Education Importance Acknowledges Need Does Patient Smoke tobacco or other No substances Smoking Status Never smoker Is Patient Diabetic No Functional Assessment Recent Decline in Ability to Perform Denies Any Declines Culture/Christianity/Remote Sensing Specialist Cultural/Christianity Needs that may affect No Treatment Plan Teaching: Wound Center *Welcome to the Wound Center -Person Taught Patient WC - Nurse 1 - General Ulcer Measurement Start: 04/07/23 10:10 Freq: Status: Active Protocol: Activity Type Activity Date Activity User E-sign Co-sign Detail Recorded Client Recorded Date Recorded By Document 04/07/23 10:10 [facility] Desktop 04/07/23 10:31 [facility] 04/07/23 10:10 Wound Center Nurse 1 #1- R LAT LE CLUSTER -Combined with other wound No -Current Size (cm) - Length 6 -Current Size (cm) - Width 2.5 -Current Size (cm) - Depth 0.2 -Total Square Cm 15.0 -Date of Last Picture (Recall this 04/07/23 field) -Photo Taken Yes -Epithelialization None Present -Tunneling No -Undermining/Tunneling No -Circular Undermining No -Exudate Amt None Present -Wound Margin Distinct, Outline Attached -Granulation Amt None Present (0 %) -Slough/Fibrin Yes -Necrosis Amt Large (67-100%) -Necrotic Tissue Type Eschar -Texture (Ludivina-wound Skin Appearance) Assessed, Scarring -Moisture (Ludivina-wound Skin Appearance) Assessed -Color (Ludivina-wound Skin Appearance) Assessed -Temperature (Ludivina-wound Skin No Abnormality Appearance) (Pt Warm) -Tenderness on Palpation (Ludivina-wound No Skin Appearance) -Ulcer Cleansing Rinsed/ Irrigated with Saline -Foul Odor after Cleansing No -Anesthetic Used 5% Lidocaine Gel - Nurse 2 - General Ulcer CM Notes Start: 04/07/23 10:10 Freq: Status: Active Protocol: Activity Type Activity Date Activity User E-sign Co-sign Detail Recorded Client Recorded Date Recorded By Document 04/07/23 10:59 Desktop 04/07/23 11:10 04/07/23 10:59 Wound Center Nurse 2 -Time 11:00 -Correct Patient Yes -Correct Side, Site, Position Yes -Correct Procedure Yes -Procedure Performed Yes -Type of Procedure Debridement -Clinical Debridement Subcutaneous -Tissue Removed Subcutaneous -Post Debridement (cm) - Length 6.2 -Post Debridement (cm) - Width 3.0 -Post Debridement (cm) - Depth 0.2 -Total Square (Post) (cm) 18.60 -Area of Debridement (cm) - Length 6.2 -Area of Debridement (cm) - Width 3.0 -Total Square (Area) (cm) 18.60 -Tunneling No -Undermining/Tunneling No -Wound/Ulcer Outcome Not Healed -Ulcer Cleansing Rinsed/ Irrigated with Saline -Foul Odor after Cleansing No -Bioengineered Tissue No -Bleeding Controlled with Pressure -Offloading No -Debridement - Subq, 1st 20sq cm Yes Pain Scale: 0-10 Numeric Is Patient Pain Free? Yes - Nurse 3 - General Ulcer D/C NN Start: 04/07/23 10:10 Freq: Status: Active Protocol: Activity Type Activity Date Activity User E-sign Co-sign Detail Recorded Client Recorded Date Recorded By Document 04/07/23 11:21 Desktop 04/07/23 11:22 04/07/23 11:21 Wound Care Center Nurse 3 #1- R LAT LE CLUSTER -Ulcer Cleansing Rinsed/ Irrigated with Saline -Foul Odor after Cleansing No -Primary Dressing Applied Mepilex Border -Other Dressing xerofrom -Mepilex Border 1 Treatment Response Procedure Tolerated Well Pain Scale: 0-10 Numeric Is Patient Pain Free? Yes - Visit Discharge Discharge Condition Stable Ambulatory Status Ambulatory Transportation Private Auto Lab / [facility] Labs: Laboratory Results - last 24 hr 04/07/23 11:36: ESR 1 Assessment/Plan Assessment/Plan (1) Skin lesions, generalized: CODE(S): L98.9 - Disorder of the skin and subcutaneous tissue, unspecified PLAN: We will first culture the cluster on her right ankle for MRSA or any kind of bacteria and anaerobes We will also get a Lyme's test done over the hospital Follow-up patient in 1 week Have patient wash every day with Hibiclens from head to toe every hair follicle and then weekly for 4 more weeks Follow-up in 1 week (2) Pruritic dermatitis: CODE(S): L30.8 - Other specified dermatitis (3) Nonhealing nonsurgical wound: CODE(S): T14.8XXA - Other injury of unspecified body region, initial encounter
== END 2023-04-10 23:59 | disposition home or self-care (01) ==
LOC: WC 10:05
PROVIDERS: PCP Family Medicine; Referring Provider Family Medicine; Visit Provider Nurse Practitioner
DX: L30.8 Other specified dermatitis (principal); E78.5 Hyperlipidemia, unspecified; T14.8XXA Other injury of unspecified body region, initial encounter; L98.9 Disorder of the skin and subcutaneous tissue, unspecified
CPT/HCPCS: 11042; 36415; 85652; 87070; 87075; 87077; 87186; 87205; 99203; G0463

== ENCOUNTER 2023-04-08 11:06 | Outpatient (CLI) | payer MEDICARE, OTHER, SELFPAY ==
[2023-04-13 01:06] LABS: Lyme IgG P18 Ab Absent (.); Lyme IgG P23 Ab Absent (.); Lyme IgG P28 Ab Absent (.); Lyme IgG P30 Ab Absent (.); Lyme IgG P39 Ab Absent (.); Lyme IgG P41 Ab Present (.); Lyme IgG P45 Ab Present (.); Lyme IgG P58 Ab Absent (.); Lyme IgG P66 Ab Absent (.); Lyme IgG P93 Ab Absent (.); Lyme IgG WB Interpretation Negative (.); Lyme IgM P23 Ab Absent (.); Lyme IgM P39 Ab Absent (.); Lyme IgM P41 Ab Absent (.); Lyme IgM WB Interpretation Negative (.)
== END 2023-04-08 23:59 | disposition home or self-care (01) ==
LOC: LAB 11:07
PROVIDERS: PCP Family Medicine; Referring Provider Nurse Practitioner; Visit Provider Nurse Practitioner
DX: L98.9 Disorder of the skin and subcutaneous tissue, unspecified (principal)
CPT/HCPCS: 86617

== ENCOUNTER → 2023-04-09 | Outpatient (CLI) | payer MEDICARE, OTHER, SELFPAY ==
[2023-04-09 12:19] LABS: Absolute Lymphocyte Count 1.81 X10^3/uL (0.83-4.51); Absolute Neutrophil Count 4.3 X10^3/uL (2.0-7.7); Basophil# 0.07 X10^3/uL; Basophil% 1.1 % (0-1); Eosinophil# 0.13 X10^3/uL; Hematocrit 40.9 % (37-47); Hemoglobin 13.9 g/dL (12.0-15.0); Lymphocyte # 1.81 X10^3/ul (0.83-4.51); Lymphocyte % 27.3 % (19-41); Mean Corpuscular Volume 94.2 fL (81-99); Mean Platelet Vol. 8.9 fl (6.2-12.0); Monocyte# 0.34 X10^3/uL; Monocyte% 5.1 % (0-10); NRBC Flagged by Analyzer 0 % (0-5); Neutrophil # 4.25 X10^3/uL (2.7-7.7); Neutrophil % 63.9 % (47-70); Platelet Count 243 K/mm3 (150-450); RBC Distribution Width CV 12.6 % (11.6-14.6); RBC Distribution Width SD 43.1 fl (35.1-43.9); Red Blood Count 4.34 M/mm3 (4.2-5.4); White Blood Count 6.6 K/mm3 (4.4-11.0)
[2023-04-09 12:47] LABS: ALB/GLOB Ratio 1.3 RATIO (0.9-2.4); AST(SGOT) 21 U/L (15-37); Alanine Aminotransfer ALT/SGPT 29 U/L (13-56); Albumin, Serum 3.6 g/dL (3.2-5.0); Alkaline Phosphatase 69 U/L (45-117); Anion Gap 2 (5-15); BUN 19 mg/dL (7-18); BUN/Creat Ratio 22.3 RATIO (10-20); Calcium,Total 9.3 mg/dL (8.5-10.1); Chloride 105 mmol/L (98-107); Creatinine, Serum 0.85 mg/dL (0.55-1.02); EST Glomerular Filtration Rate 69 mL/min (>60); Est Glom Filt Rate - Afr Amer 84 mL/min (>60); Globulin 2.7 g/dL (2.2-4.2); Glucose 88 mg/dL (74-106); Potassium 3.9 mmol/L (3.5-5.1); Protein, Total 6.3 g/dL (6.4-8.2); Sodium Level 138 mmol/L (136-145)
== END | disposition home or self-care (01) ==
LOC: MTLAB 10:57
PROVIDERS: PCP Family Medicine; Referring Provider Internal Medicine Rheumatology; Visit Provider Internal Medicine Rheumatology
DX: M06.4 Inflammatory polyarthropathy (principal); Z79.899 Other long term (current) drug therapy
CPT/HCPCS: 36415; 80053; 85025

== ENCOUNTER 2023-04-14 10:40 | Outpatient (RCR) | payer MEDICARE, OTHER, SELFPAY ==
[2023-04-11 00:29] VITALS: BP 148/81; PULSE 70; RESP 16; TEMP 36.2; BMI 20.1
[2023-04-14 10:58] VITALS: BP 131/45; PULSE 73; TEMP 36; BMI 20.1
--- NOTE | 2023-04-14 12:08 | PCM.WC.PN ---
History of Present Illness Date of Service: 04/14/23 Chief Complaint: Open sores all over body very pruritic in nature since spring. 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 Started developing sores on her buttocks arms face ears and ankles. She was seen by dermatology and he told her he thought she had scabies but did not treat her but gave her a Kenalog shot which she self to help with the itching for a while. Primary care doctor put her on doxycycline but did not culture her. She felt neither of them helps take care of anything She is not diabetic but has many allergies to antibiotics therapy. Progress of Wound: Wound on the right lateral lower leg is healed all the other spots are fading patient had an allergic reaction to doxycycline and broke out in a peppered rash on her waistline and on her chest and abdomen. We will have to switch her over to Tammy suicide. Patient will be discharged from the wound center may be follow-up in over a month or 2 to see how she is doing otherwise all is healed. Subjective Subjective Patient is very happy with outcomes we will give her some steroids and linezolid for antibiotic therapy Objective Data Objective Data All of her cultures came back for Staph aureus and lab work was all within normal limits her Lyme's test was negative Vital Signs: Vital Signs Temp Pulse Resp BP O2 Del Method 96.8 F L 73 16 131/45 H Room Air 04/14/23 10:58 04/14/23 10:58 04/11/23 00:29 04/14/23 10:58 04/14/23 10:58 Oxygen Delivery Method Room Air Weight: 125 lb Body Mass Index (BMI) 20.1 Lab / Micro Data Attestation: I reviewed the patient's lab results. Physical Exam Const oriented x3 General Appearance: cooperative Exam Limitations: no limitations HEENT normocephalic Head and Scalp: normal to inspection Face and Sinus: normal facial exam General Ear: hearing grossly impaired External Ear: external ears normal Eyes PERRL General Eye: normal appearance of both eyes Neck full ROM Resp normal respiratory effort Effort and Inspection: able to speak in complete sentences Cardio regular rate and regular rhythm Rate: regular rate Rhythm: regular rhythm GI Palpation: soft and no hepatosplenomegaly external exam normal Extremity normal to inspection General Extremity: normal exam except as noted Skin no rashes or lesions noted Neuro oriented x3 Psych Appearance: grossly normal Speech: normal speech Thought Content: normal thought content Judgement: judgement good Debridement Note Debridement Note No debridement was completed: No debridement was completed today Post-Debridement Measurements and Additional Note: Post-Debridement Measurements/Treatment WC - Nurse 1 - General Ulcer Assessment Start: 04/14/23 10:58 Freq: Status: Active Protocol: YOMAIRA Activity Type Activity Date Activity User E-sign Co-sign Detail Recorded Client Recorded Date Recorded By Document 04/14/23 10:58 Desktop 04/14/23 11:03 04/14/23 10:58 - Today's Visit Information Type of service 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 ) Arrival Mode Ambulatory Transfer Assistance None Patient Identification Verified (Name & Yes ) Patient Requires Transmission-Based No Precautions Height and Weight Body Mass Index (BMI) 20.1 BMI Classification Normal Vital Signs Temperature (97.8 F-99.1 F) 96.8 F L Temperature Source Temporal Pulse Rate (60-100) 73 Pulse Location Monitor Oxygen Delivery Method Room Air Blood Pressure (90/60-120/80) 131/45 H Blood Pressure Mean (mm Hg) 73 Source Monitor Position Semi-Fowlers Blood Pressure Location Left Arm History Since Last Visit- (Skip if this is Patient's initial visit) Have you changed medications since your No last visit? Any new allergies or adverse reactions No Had a fall/change in ADL's that may No increase risk of falls Signs or symptoms of abuse and/or No neglect since last visit Have you been in the hospital since your No last visit? Has compression in place as prescribed N/A Has offloadiing in place as prescribed N/A Experienced any changes in pain level or No management Pain Scale: 0-10 Numeric Is Patient Pain Free? 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 -Current Size (cm) - Length 4.4 -Current Size (cm) - Width 3.0 -Current Size (cm) - Depth 0.1 -Total Square Cm 13.20 -Date of Last Picture (Recall this 04/14/23 field) -Photo Taken Yes -Tunneling No -Undermining/Tunneling No -Circular Undermining No -Exudate Amt Medium -Exudate Type Serous -Wound Margin Flat & Intact -Granulation Amt Small (1-33%) -Granulation Quality [place] -Slough/Fibrin No -Necrosis Amt None Present (0 %) -Structure Exposed N/A -Texture (Ludivina-wound Skin Appearance) Assessed -Moisture (Ludivina-wound Skin Appearance) Assessed -Color (Ludivina-wound Skin Appearance) Assessed -Temperature (Ludivina-wound Skin No Abnormality Appearance) (Pt Warm) -Tenderness on Palpation (Ludivina-wound No Skin Appearance) -Ulcer Cleansing Rinsed/ Irrigated with Saline -Foul Odor after Cleansing No -Anesthetic Used 5% Lidocaine Gel WC - Nurse 2 - General Ulcer CM Notes Start: 04/14/23 10:58 Freq: Status: Active Protocol: Activity Type Activity Date Activity User E-sign Co-sign Detail Recorded Client Recorded Date Recorded By Document 04/14/23 11:15 MW Desktop 04/14/23 11:22 MW 04/14/23 11:15 Wound Center Nurse 2 -Time 11:16 -Correct Patient Yes -Correct Side, Site, Position Yes -Correct Procedure Yes -Procedure Performed No -Post Debridement (cm) - Length 0 -Post Debridement (cm) - Width 0 -Post Debridement (cm) - Depth 0 -Total Square (Post) (cm) 0 -Tunneling No -Undermining/Tunneling No -Wound/Ulcer Outcome Healed- Epithelialized Pain Scale: 0-10 Numeric Is Patient Pain Free? Yes Assessment/Plan Assessment/Plan (1) Skin lesions, generalized: CODE(S): L98.9 - Disorder of the skin and subcutaneous tissue, unspecified PLAN: Discharge from the wound center follow-up as needed We will switch her antibiotic to linezolid 600 mg twice daily for 10 to 14 days Also gave her prednisone for the itching Patient can follow-up in a month or to see if she everything is going away. (2) Pruritic dermatitis: CODE(S): L30.8 - Other specified dermatitis (3) Nonhealing nonsurgical wound: CODE(S): T14.8XXA - Other injury of unspecified body region, initial encounter
== END 2023-05-11 23:59 | disposition home or self-care (01) ==
LOC: WC 10:40
PROVIDERS: PCP Family Medicine; Referring Provider Family Medicine; Visit Provider Nurse Practitioner
DX: L30.8 Other specified dermatitis (principal); T14.8XXA Other injury of unspecified body region, initial encounter
CPT/HCPCS: 99213; G0463

== ENCOUNTER 2023-05-12 10:39 | Outpatient (RCR) | payer MEDICARE, OTHER, SELFPAY ==
[2023-05-12 00:19] VITALS: BP 131/45; PULSE 73; RESP 16; TEMP 36; BMI 20.1
[2023-05-12 10:44] VITALS: BP 129/70; PULSE 79; TEMP 36.2; BMI 20.1
--- NOTE | 2023-05-12 11:43 | PN.PCM_ITS ---
History of Present Illness Date of Service: 05/12/23 Chief Complaint: Open sores all over body very pruritic in nature since spring. History of Wound: 73-year-old white female that does a lot of volunteering at the [facility] and dealing a lot more with wild kittens and has a few dogs and kittens at home. 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 Started developing sores on her buttocks arms face ears and ankles. She was seen by dermatology and he told her he thought she had scabies but did not treat her but gave her a Kenalog shot which she self to help with the itching for a while. Primary care doctor put her on doxycycline but did not culture her. She felt neither of them helps take care of anything She is not diabetic but has many allergies to antibiotics therapy. 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 Melendrez. That would make up for why she keeps having all these different rashes Progress of Wound: Today she has a small open area on the back of her right lower extremity. It is less than the size of a dime. We will obtain cultures and start her on ointments with antibiotic and it and cover with Xeroform for now until we find out if it staph again. She complains of itching she also has some erythematous rashes under her arms and on her buttocks that could be related to her autoimmune disorder. Subjective Subjective Patient just not sure what she should do with the opening and they ran out of supplies and they are expensive. Objective Data Objective Data Small round punctured opening on the back of her right lower extremity. She has been digging at it and scratching. We will obtain cultures before starting any antibiotic therapy other than topical Vital Signs: Vital Signs Temp Pulse Resp BP O2 Del Method 97.1 F L 79 16 129/70 H Room Air 05/12/23 10:44 05/12/23 10:44 05/12/23 00:19 05/12/23 10:44 05/12/23 10:44 Oxygen Delivery Method Room Air Weight: 125 lb Body Mass Index (BMI) 20.1 Lab / Micro Data Attestation: I reviewed the patient's lab results. Physical Exam Const oriented x3 General Appearance: cooperative Exam Limitations: no limitations HEENT normocephalic Head and Scalp: normal to inspection Face and Sinus: normal facial exam General Ear: hearing grossly impaired External Ear: external ears normal Eyes PERRL General Eye: normal appearance of both eyes Neck full ROM Resp normal respiratory effort Effort and Inspection: able to speak in complete sentences Cardio regular rate and regular rhythm Rate: regular rate Rhythm: regular rhythm GI Palpation: soft and no hepatosplenomegaly external exam normal Extremity normal to inspection General Extremity: normal exam except as noted Skin no rashes or lesions noted Neuro oriented x3 Psych Appearance: grossly normal Speech: normal speech Thought Content: normal thought content Judgement: judgement good Debridement Note Debridement Note Wound debrided: Right lower leg ulcer Type of Debridement: Excisional debridement Anesthesia Used: 5% Lidocaine Gel Depth: Down to and including healthy tissue Percentage of wound debrided: 100 Instrument Used: 3mm curette Tissue Removed: Fibrin Severity: Fat Layer Exposed Amount of bleeding with debridement: Mild Bleeding Controlled with: Compression and gauze Patient tolerated procedure: Patient tolerated procedure well Post-Debridement Measurements and Additional Note: Post-Debridement Measurements/Treatment - Nurse 1 - General Ulcer Assessment Start: 05/12/23 10:44 Freq: Status: Active Protocol: YOMAIRA Activity Type Activity Date Activity User E-sign Co-sign Detail Recorded Client Recorded Date Recorded By Document 05/12/23 10:44 Desktop 05/12/23 10:52 05/12/23 10:44 - Today's Visit Information Type of service 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 ) Arrival Mode Ambulatory Patient Identification Verified (Name & Yes ) Patient Requires Transmission-Based No Precautions Height and Weight Body Mass Index (BMI) 20.1 BMI Classification Normal Vital Signs Temperature (97.8 F-99.1 F) 97.1 F L Temperature Source Temporal Pulse Rate (60-100) 79 Pulse Location Monitor Oxygen Delivery Method Room Air Blood Pressure (90/60-120/80) 129/70 H Blood Pressure Mean (mm Hg) 89 Source Monitor Position Sitting Blood Pressure Location Right Arm History Since Last Visit- (Skip if this is Patient's initial visit) Have you changed medications since your No last visit? Any new allergies or adverse reactions No Had a fall/change in ADL's that may No increase risk of falls Signs or symptoms of abuse and/or No neglect since last visit Have you been in the hospital since your No last visit? Has compression in place as prescribed N/A Has offloadiing in place as prescribed N/A Left Footwear Regular Shoe Right Footwear Regular Shoe Pain Scale: 0-10 Numeric Is Patient Pain Free? Yes WC - Nurse 1 - General Ulcer Measurement Start: 05/12/23 10:44 Freq: Status: Active Protocol: Activity Type Activity Date Activity User E-sign Co-sign Detail Recorded Client Recorded Date Recorded By Document 05/12/23 10:44 Desktop 05/12/23 10:52 05/12/23 10:44 Wound Center Nurse 1 Right Posterior calf -Current Size (cm) - Length 0.5 -Current Size (cm) - Width 0.5 -Current Size (cm) - Depth 0.1 -Total Square Cm 0.25 -Date of Last Picture (Recall this 05/12/23 field) -Photo Taken Yes -Tunneling No -Undermining/Tunneling No -Circular Undermining No -Exudate Amt None Present -Wound Margin Distinct, Outline Attached -Granulation Amt Large (67-100%) -Granulation Quality Red -Slough/Fibrin No -Necrosis Amt None Present (0 %) -Texture (Ludivina-wound Skin Appearance) Assessed -Color (Ludivina-wound Skin Appearance) Assessed, Ecchymosis, Erythema -Tenderness on Palpation (Ludivina-wound No Skin Appearance) -Ulcer Cleansing Not Cleansed -Foul Odor after Cleansing No WC - Nurse 2 - General Ulcer CM Notes Start: 05/12/23 10:44 Freq: Status: Active Protocol: Activity Type Activity Date Activity User E-sign Co-sign Detail Recorded Client Recorded Date Recorded By Document 05/12/23 11:07 [email or web address] 05/12/23 11:15 05/12/23 11:07 Wound Center Nurse 2 -Time 11:10 -Correct Patient Yes -Correct Side, Site, Position Yes -Correct Procedure Yes -Procedure Performed Yes -Type of Procedure Debridement -Clinical Debridement Subcutaneous -Tissue Removed Subcutaneous -Post Debridement (cm) - Length 0.4 -Post Debridement (cm) - Width 0.5 -Post Debridement (cm) - Depth 0.2 -Total Square (Post) (cm) 0.20 -Area of Debridement (cm) - Length 0.4 -Area of Debridement (cm) - Width 0.5 -Total Square (Area) (cm) 0.20 -Tunneling No -Undermining/Tunneling No -Circular Undermining No -Wound/Ulcer Outcome Not Healed -Ulcer Cleansing Rinsed/ Irrigated with Saline -Foul Odor after Cleansing No -Bioengineered Tissue No -Bleeding Controlled with Pressure -Treatment Response Procedure Tolerated Well -Offloading No -Debridement - Subq, 1st 20sq cm Yes Pain Scale: 0-10 Numeric Is Patient Pain Free? Yes - Nurse 3 - General Ulcer D/C NN Start: 05/12/23 10:44 Freq: Status: Active Protocol: Activity Type Activity Date Activity User E-sign Co-sign Detail Recorded Client Recorded Date Recorded By Document 05/12/23 11:21 Desktop 05/12/23 11:22 05/12/23 11:21 Wound Care Center Nurse 3 Right Posterior calf -Ulcer Cleansing Not Cleansed -Foul Odor after Cleansing No -Primary Dressing Applied Mepilex Border, NonAdherent Contact Layer -Other Dressing bactroban then xeroform -Mepilex Border 1 Pain Scale: 0-10 Numeric Is Patient Pain Free? Yes Teaching: Wound Center Dressing Your Wound -Person Taught Patient,Family -Teaching Method Discussion, Demonstration -Response to teaching Verbalize understanding WC - Visit Discharge Discharge Condition Stable Ambulatory Status Ambulatory Transportation Private Auto Medication Reconcilliation completed & Yes provided to patient/care provider Clinical Summary of Care Provided Yes Assessment/Plan Assessment/Plan (1) Nonhealing nonsurgical wound: CODE(S): T14.8XXA - Other injury of unspecified body region, initial encounter PLAN: Wash the area with Hibiclens Apply the Bactroban to base of wound cover with the Xeroform dressing then a dry dressing over top Suggested taking her hydroxyzine for itching We will call with culture results Follow-up in 1 month (2) Pruritic dermatitis: CODE(S): L30.8 - Other specified dermatitis (3) Skin lesions, generalized: CODE(S): L98.9 - Disorder of the skin and subcutaneous tissue, unspecified
--- NOTE | 2023-05-20 11:08 | WC ---
Patient called in concerned that with her staph infection to her wound, she's concerned that it might have affected her eyes since they are developed redness and itchiness. Wanted to know if she should be on eye gtts. Notified Olivia regarding this and she wants patient to see her PCP to have her eye assessed. Notified patient and she agreed and stated that she could see her eye doctor. Informed her to let whoever she sees letting them know she's on an ATP ointment that is used to treat staph infection. Patient verbalized understanding.
--- NOTE | 2023-05-20 15:15 | WC ---
Dr Bustos solar sales representative from [place] regarding patient's eye redness and itchiness. Dr Bustos wanted to know patient's recent wound culture result and her latest ATB. Reviewed patient's wound culture and most recent note from Olivia letting Dr Bustos know that she was on Zyvox and prednisone at one point and had healed her wound in one week. The most recent wound culture obtained 05-12-23 was negative for aerobic and anaerobic. She is to follow up with eye doctor regarding this matter and is scheduled to see [id number].
== END 2023-06-10 23:59 | disposition home or self-care (01) ==
LOC: WC 10:39
PROVIDERS: PCP Family Medicine; Referring Provider Family Medicine; Visit Provider Nurse Practitioner
DX: T81.89XA Other complications of procedures, not elsewhere classified, initial encounter (principal); L30.8 Other specified dermatitis; L98.9 Disorder of the skin and subcutaneous tissue, unspecified
CPT/HCPCS: 11042; 87070; 87075; 87205

== ENCOUNTER → 2023-07-23 | Outpatient (CLI) | payer MEDICARE, OTHER, SELFPAY ==
--- OUTSIDE RECORDS SUMMARY | 2023-07-23 11:42 | XMS RPT_ITS | CCD ---
Author Name Unknown Address [address] [place] [address] Organization [facility] Care Team Providers Care Sewer Name Role Phone SIGIFREDO TONEY Unavailable Unavailable Joceline Zuniga Primary Care Provider Heidi Flores Unavailable [phone] Heidi Flores Unavailable [phone] DONNA CALZADA Admitting Unavailable DONNA CALZADA Primary Care Unavailable DONNA CALZADA Attending Unavailable VACCMAISHA, HENRIQUE Consulting Unavailable PROVIDER, UNKNOWN Consulting Unavailable PROVIDER, UNKNOWN Consulting Unavailable PROVIDER, UNKNOWN Consulting Unavailable VACCARIELLO, HENRIQUE Admitting Unavailable VACCARIELLO, HENRIQUE Primary Care Unavailable VACCARIELLO, HENRIQUE Consulting Unavailable VACCARIELLO, HENRIQUE Attending Unavailable PROVIDER, UNKNOWN Consulting Unavailable PROVIDER, UNKNOWN Consulting Unavailable PROVIDER, UNKNOWN Consulting Unavailable Allergies Allergy Classification Reported Allergen(s) Allergy Type Date of Onset Reaction(s) Facility (2 sources) Latex Propensity to adverse reactions to drug 3 Rash, Itching [facility] (2 sources) Penicillins Propensity to adverse reactions to drug 3 [facility] (2 sources) Sulfonamides (Antibiotic) Propensity to adverse reactions to drug 2 [facility] (1 source) levoFLOXacin Drug Allergy [facility] (1 source) Omeprazole Drug Allergy [facility] (1 source) Penicillin Drug Allergy [facility] (1 source) Sulfonamides (Antibiotic) Drug allergy (disorder) [facility] (1 source) ANESTHETIC, AMIDE Drug allergy (disorder) [facility] Medications Current Medications Medication Drug Class(es) Dates Sig (Normalized) Sig (Original) acetaminophen 300 mg / codeine phosphate 30 mg oral tablet (2 sources) Opioid Agonist Start: 05-02-2013 take 1-2 tablets by mouth every four hours as needed acetaminophen-codein e 300-30 MG PO TABS take 1-2 Tabs by mouth every 4 hours as needed for Pain. 30 Tab 0 05/02/2013 Active Acyclovir (2 sources) Herpesvirus Nucleoside Analog DNA Polymerase Inhibitor, Herpes Simplex Virus Nucleoside Analog DNA Polymerase Inhibitor, Herpes Zoster Virus Nucleoside Analog DNA Polymerase Inhibitor ACYCLOVIR ascorbic acid 500 mg oral tablet (2 sources) Vitamin C take 1 tablet by mouth once daily at lunch Ascorbic Acid (VITAMIN C-MELVIN HIPS) 500 MG PO TABS take 1 Tab by mouth daily with lunch. 0 Active Cholecalciferol (VITAMIN D3) XX LIQD (2 sources) take 2 drop(s) by mouth once daily at lunch Cholecalciferol (VITAMIN D3) XX LIQD take 2 Drops by mouth daily with lunch. 4000 IU 0 Active coenzyme q10 100 mg oral capsule (2 sources) take 1 tablet by mouth once daily at breakfast Coenzyme Q10 (CO Q-10) 100 MG PO CAPS take 1 Tab by mouth daily with breakfast. 0 Active DIGESTIVE ENZYMES PO (2 sources) take 2 tablets by mouth three times daily at mealtime DIGESTIVE ENZYMES PO take 2 Tabs by mouth 3 times daily with meals. 0 Active docusate sodium 100 mg oral capsule (2 sources) Start: 04-28-2013 take 1 capsule by mouth twice daily docusate 100 MG PO CAPS take 1 Cap by mouth 2 times daily. 60 Cap 1 04/28/2013 Active esomeprazole 40 mg delayed release oral capsule (2 sources) Proton Pump Inhibitor take 1 capsule by mouth once daily in the morning esomeprazole [address] Indications: Vestibular schwannoma , Unspecified tinnitus , Sensorineural hearing loss, asymmetrical take 1 Cap by mouth daily every morning. 0 Active Ibuprofen (2 sources) Nonsteroidal Anti-inflammatory Drug IBUPROFEN Magnesium (2 sources) take 2 tablets by mouth at bedtime Magnesium 250 MG PO TABS take 2 Tabs by mouth at bedtime. 0 Active Multiple Vitamins-Iron (STRESS FORMULA/IRON) PO TABS (2 sources) take 1 tablet by mouth once daily in the morning Multiple Vitamins-Iron (STRESS FORMULA/IRON) PO TABS take 1 Tab by mouth daily every morning. 0 Active Multiple Vitamins-Minerals (MULTIVITAL PO) (2 sources) take 1 tablet by mouth once daily at breakfast Multiple Vitamins-Minerals (MULTIVITAL PO) take 1 Tab by mouth daily with breakfast. 0 Active Multiple Vitamins-Minerals (MULTIVITAMIN PO) (2 sources) Multiple Vitamins-Minerals (MULTIVITAMIN PO) ondansetron 4 mg disintegrating oral tablet (2 sources) Serotonin-3 Receptor Antagonist Start: 05-01-2013 take 4 mg by mouth every eight hours as needed for nausea and nausea ondansetron 4 MG PO ODT Indications: Nausea alone take 1 Tab by mouth every 8 hours as needed for Nausea. 30 Tab 0 05/01/2013 Active predniSONE 10 mg oral tablet (2 sources) Start: 04-28-2017 predniSONE 10 MG Tab tablet Probiotic Product (PROBIOTIC DAILY PO) (2 sources) take 1 tablet by mouth once daily in the morning Probiotic Product (PROBIOTIC DAILY PO) take 1 Tab by mouth daily every morning. 0 Active red yeast rice 600 mg oral tablet (2 sources) take 2 tablets by mouth once daily at breakfast Red Yeast Rice 600 MG PO TABS take 2 Tabs by mouth daily with breakfast. 0 Active Mohamud Oil XX OIL (2 sources) take 30-40 drop(s) by mouth once daily Moahmud Oil XX OIL take 30-40 Drops by mouth daily. 0 Active Selenium 200 MCG PO TABS (2 sources) take 1 tablet by mouth once daily at lunch Selenium 200 MCG PO TABS take 1 Tab by mouth daily with lunch. 0 Active turmeric extract 450 mg oral capsule (2 sources) take 1 capsule by mouth once daily in the evening Turmeric 450 MG PO CAPS take 1 Cap by mouth every evening at 6 PM. 0 Active Vitamin B 12 (2 sources) Vitamin B12 take 1 tablet by mouth once daily in the morning Cyanocobalamin (VITAMIN B 12 PO) take 1 Tab by mouth daily every morning. 0 Active vitamin e d-alpha 400 unt oral capsule (2 sources) take 1 capsule by mouth once daily at lunch vitamin E 400 UNITS PO CAPS take 1 Cap by mouth daily with lunch. 0 Active Problems Active Problems Problem Classification Problem Date Documented Date Episodic/Chronic Disorders of lipid metabolism (2 sources) Hyperlipidemia; Translations: [Hyperlipidemia] 04-03-2013 Chronic Essential hypertension (2 sources) Benign essential hypertension; Translations: [Essential hypertension, benign] 04-03-2013 Chronic Other and unspecified benign neoplasm (3 sources) Acoustic neuroma; Translations: [Vestibular schwannoma] 04-03-2013 Chronic Other diseases of kidney and ureters (2 sources) Kidney disease; Translations: [Renal disease] 04-03-2013 Episodic Other ear and sense organ disorders (3 sources) Asymmetrical sensorineural hearing loss; Translations: [Sensorineural hearing loss, asymmetrical] Onset: 08-04-2012 08-04-2012 Episodic Past or Other Problems Problem Classification Problem Date Documented Da te Episodic/Chronic Fluid and electrolyte disorders (2 sources) Hypokalemia; Translations: [Hypokalemia] Onset: 08-19-2017 Episodic Nausea and vomiting (2 sources) Nausea and vomiting; Translations: [Nausea & vomiting] Onset: 04-26-2013 Episodic Results Test Name Value Interpretation Reference Range Facil ity Encounters Encounter Date Encounter Type Care Provider Facility Start: 01-26-2022 End: 01-26-2022 ambulatory HENRIQUE SEGUNDO [facility] Start: 02-07-2021 End: 02-07-2021 ambulatory DONNA CALZADA [facility] Start: 05-10-2019 End: 05-10-2019 Orders Only Carin Francis Work Phone: Department of Otolaryngology Plan of Treatment Date Care Activity Detail Author Start: 05-10-2019 End: 05-10-2020 MRI of internal auditory meatus with contrast MRI INTERNAL AUDITORY CANAL WITH AND WITHOUT CONTRAST Imaging Routine Vestibular schwannoma Sensorineural hearing loss, asymmetrical Expected: 05/10/2019, Expires: 05/10/2020 [facility] Payers Date Payer Category Payer Medicare [id number] 2017 Medicare MEDICARE MEDICAR E A AND B xxxxxxxxxx 2017-Present [place], [place] xxxxxxxxxx [id number] 2017 Unknown [employer] xxxxxxxxxxxx 2017-Present xxxxxxxxxxxx [id number] 1949 Unknown [id number] 1950 Unknown [id number] 1950 Unknown [id number] Medicare [id number] Unknown [id number] Social History Date Type Detail Facility Start: 07-17-2014 Tobacco smoking status NHIS Never [facility] Sex Assigned At Not on file [facility] Start: 07-17-2014 Alcohol intake No [facility] Medical Equipment Procedure Code Equipment Code Equipment Origin al Text Equipment Identifier Dates Implant Duragen 2 X 2 Start: 04-25-2013 Implant Duragen 2 X 2 Start: 04-25-2013 Plate Dbl Y -71 Start: 04-25-2013 Plate Dbl Y -71 Start: 04-25-2013 Screw 1.5x4.0mm Start: 04-25-2013 Screw 1.5x4.0mm Start: 04-25-2013 Implant Duragen 2 X 2 [id number] Start: 04-25-2013 Plate Dbl Y [id number] Start: 04-25-2013 Screw 1.5x4.0mm [id number] Start: 04-25-2013 Summary Purpose Family History No Family History Records FoundNo Family History Records FoundNo Family History Records Found Advance Directives No Advanced Directives Records FoundLatest Code Status on File Code Status Date Activated Date Inactivated Comments Full Code-Unverified 04/25/2013 4:08 PM 04/28/2013 6:3 8 PM Latest Code Status on File Code Status Date Activated Date Inactivated Comments Full Code-Unverified 04/25/2013 4:08 PM 04/28/2013 6:3 8 PM History of Present Illness * Zehra Myrick - 09/23/2018 2:09 PM EDT [facility] Hearing aid information entered into flowsheet. MR documented in this encounter* Carin Francis PA-C - 05/10/2019 8:53 AM EDT Surveillance post acoustic removal 2013 Doing the scan locally and the audiogram as well. Will send to me/Dr Dickinson for review documented in this encounter Reason for Referral Status Reason Specialty Diagnoses / Procedures Referred By Contact Referred To Contact New Request Audiology Diagnoses Vestibular schwannoma Sensorineural hearing loss, asymmetrical Carin Francis PA-C [address] [facility] [address] [place] [address] Status Reason Specialty Diagnoses / Procedures Referred By Contact Referred To Contact New Request Diagnoses Vestibular schwannoma Sensorineural hearing loss, asymmetrical Procedures MRI INTERNAL AUDITORY CANAL WITH AND WITHOUT CONTRAST MI MRI BRAIN COMBO Carin Francis PA-C [address] [facility] [address] [place] [address] Assessments Diagnosis Vestibular schwannoma- Primary Benign neoplasm of cranial nerves Sensorineural hearing loss, asymmetrical Additional Source Comments INFORMATION SOURCE (unrecogn ized section and content) DATE CREATED AUTHOR AUTHOR'S ORGANIZ ATION 01/30/2022 [facility] DATE CREATED AUTHOR AUTHOR'S ORGANIZ ATION 07/24/2022 [facility] Reason for Visit (unrecogniz ed section and content) FOR RECORDS PERTAINING TO PATIENTS WHO ARE OR HAVE BEEN ENROLLED IN A CHEMICAL DEPENDENCY/SUBSTANCEABUSE PROGRAM, SOME INFORMATION MAY BE OMITTED. This clinical summary was aggregated from multiple sources. Caution should be exercised in using it in the provision of clinical care. This summary normalizes information from multiple sources, and as a consequence, information in this document may materially change the coding, format and clinical context of patient data. In addition, data may be omitted in some cases. CLINICAL DECISIONS SHOULD BE BASED ON THE PRIMARY CLINICAL RECORDS. [employer] provides no warranty or guarantee of the accuracy or completeness of information in this document.
[2023-07-23 15:37] LABS: Absolute Lymphocyte Count 2.06 X10^3/uL (0.83-4.51); Absolute Neutrophil Count 3.8 X10^3/uL (2.0-7.7); Basophil# 0.11 X10^3/uL; Basophil% 1.6 % (0-1); Eosinophil# 0.57 X10^3/uL; Hematocrit 40.8 % (37-47); Hemoglobin 13.7 g/dL (12.0-15.0); Lymphocyte # 2.06 X10^3/ul (0.83-4.51); Lymphocyte % 29.1 % (19-41); Mean Corp Hgb Conc 33.6 g/dL (32-36); Mean Corpuscular Hgb 31.6 pg (27.0-32.0); Mean Platelet Vol. 9.7 fl (6.2-12.0); Monocyte# 0.53 X10^3/uL; Monocyte% 7.5 % (0-10); NRBC Flagged by Analyzer 0 % (0-5); Neutrophil # 3.79 X10^3/uL (2.7-7.7); Neutrophil % 53.4 % (47-70); Platelet Count 255 K/mm3 (150-450); RBC Distribution Width CV 11.7 % (11.6-14.6); RBC Distribution Width SD 39.9 fl (35.1-43.9); Red Blood Count 4.34 M/mm3 (4.2-5.4); White Blood Count 7.1 K/mm3 (4.4-11.0)
[2023-07-23 16:11] LABS: ALB/GLOB Ratio 1.4 RATIO (0.9-2.4); AST(SGOT) 15 U/L (15-37); Alanine Aminotransfer ALT/SGPT 18 U/L (13-56); Albumin, Serum 3.8 g/dL (3.2-5.0); Alkaline Phosphatase 75 U/L (45-117); Anion Gap 7 (5-15); BUN 19 mg/dL (7-18); BUN/Creat Ratio 23.9 RATIO (10-20); Calcium,Total 9.4 mg/dL (8.5-10.1); Chloride 108 mmol/L (98-107); Creatinine, Serum 0.79 mg/dL (0.55-1.02); EST Glomerular Filtration Rate 75 mL/min (>60); Est Glom Filt Rate - Afr Amer 91 mL/min (>60); Globulin 2.8 g/dL (2.2-4.2); Glucose 92 mg/dL (74-106); Potassium 3.7 mmol/L (3.5-5.1); Protein, Total 6.6 g/dL (6.4-8.2); Sodium Level 141 mmol/L (136-145)
== END | disposition home or self-care (01) ==
LOC: MTLAB 11:18
PROVIDERS: PCP Family Medicine; Referring Provider Internal Medicine Rheumatology; Visit Provider Internal Medicine Rheumatology
DX: M06.4 Inflammatory polyarthropathy (principal); Z79.899 Other long term (current) drug therapy; M18.0 Bilateral primary osteoarthritis of first carpometacarpal joints; M19.041 Primary osteoarthritis, right hand
CPT/HCPCS: 36415; 80053; 85025

== ENCOUNTER → 2023-09-20 | Outpatient (CLI) | payer MEDICARE, OTHER, SELFPAY ==
[2023-09-20 12:34] LABS: Absolute Lymphocyte Count 1.82 X10^3/uL (0.83-4.51); Absolute Neutrophil Count 4.7 X10^3/uL (2.0-7.7); Basophil# 0.06 X10^3/uL; Basophil% 0.8 % (0-1); Eosinophils% 4.1 % (0-5); Hematocrit 40.2 % (37-47); Hemoglobin 13.8 g/dL (12.0-15.0); Lymphocyte # 1.82 X10^3/ul (0.83-4.51); Mean Corp Hgb Conc 34.3 g/dL (32-36); Mean Corpuscular Hgb 31.6 pg (27.0-32.0); Mean Platelet Vol. 9.4 fl (6.2-12.0); Monocyte# 0.41 X10^3/uL; Monocyte% 5.6 % (0-10); NRBC Flagged by Analyzer 0 % (0-5); Neutrophil # 4.65 X10^3/uL (2.7-7.7); Neutrophil % 64.1 % (47-70); Platelet Count 238 K/mm3 (150-450); RBC Distribution Width CV 12.9 % (11.6-14.6); Red Blood Count 4.37 M/mm3 (4.2-5.4); White Blood Count 7.3 K/mm3 (4.4-11.0)
[2023-09-20 13:35] LABS: ALB/GLOB Ratio 1.2 RATIO (0.9-2.4); AST(SGOT) 16 U/L (15-37); Alanine Aminotransfer ALT/SGPT 21 U/L (13-56); Albumin, Serum 3.7 g/dL (3.2-5.0); Alkaline Phosphatase 73 U/L (45-117); Anion Gap 4 (5-15); BUN 20 mg/dL (7-18); BUN/Creat Ratio 26.5 RATIO (10-20); Calcium,Total 9.1 mg/dL (8.5-10.1); Chloride 106 mmol/L (98-107); Creatinine, Serum 0.76 mg/dL (0.55-1.02); EST Glomerular Filtration Rate 80 mL/min (>60); Est Glom Filt Rate - Afr Amer 96 mL/min (>60); Globulin 3.1 g/dL (2.2-4.2); Glucose 76 mg/dL (74-106); Potassium 3.7 mmol/L (3.5-5.1); Protein, Total 6.8 g/dL (6.4-8.2); Sodium Level 140 mmol/L (136-145)
== END | disposition home or self-care (01) ==
LOC: MTLAB 10:47
PROVIDERS: PCP Family Medicine; Referring Provider Internal Medicine Rheumatology; Visit Provider Internal Medicine Rheumatology
DX: M06.4 Inflammatory polyarthropathy (principal); Z79.899 Other long term (current) drug therapy; M18.0 Bilateral primary osteoarthritis of first carpometacarpal joints; M19.041 Primary osteoarthritis, right hand
CPT/HCPCS: 36415; 80053; 85025

== ENCOUNTER → 2023-12-17 | Outpatient (CLI) | payer MEDICARE, OTHER, SELFPAY ==
[2023-12-17 15:18] LABS: Absolute Lymphocyte Count 1.77 X10^3/uL (0.83-4.51); Absolute Neutrophil Count 4.9 X10^3/uL (2.0-7.7); Basophil% 1.3 % (0-1); Eosinophils% 6.3 % (0-5); Hematocrit 39.1 % (37-47); Hemoglobin 13.3 g/dL (12.0-15.0); Lymphocyte # 1.77 X10^3/ul (0.83-4.51); Lymphocyte % 22.4 % (19-41); Mean Corpuscular Hgb 32.5 pg (27.0-32.0); Mean Corpuscular Volume 95.6 fL (81-99); Mean Platelet Vol. 9.7 fl (6.2-12.0); Monocyte# 0.55 X10^3/uL; NRBC Flagged by Analyzer 0 % (0-5); Neutrophil # 4.93 X10^3/uL (2.7-7.7); Neutrophil % 62.5 % (47-70); Platelet Count 285 K/mm3 (150-450); RBC Distribution Width CV 13.2 % (11.6-14.6); RBC Distribution Width SD 45.8 fl (35.1-43.9); Red Blood Count 4.09 M/mm3 (4.2-5.4); White Blood Count 7.9 K/mm3 (4.4-11.0)
[2023-12-17 15:45] LABS: ALB/GLOB Ratio 1.3 RATIO (0.9-2.4); AST(SGOT) 14 U/L (15-37); Alanine Aminotransfer ALT/SGPT 23 U/L (13-56); Albumin, Serum 3.7 g/dL (3.2-5.0); Alkaline Phosphatase 73 U/L (45-117); Anion Gap 5 (5-15); BUN 16 mg/dL (7-18); BUN/Creat Ratio 16.2 RATIO (10-20); Calcium,Total 9.5 mg/dL (8.5-10.1); Chloride 105 mmol/L (98-107); Creatinine, Serum 0.98 mg/dL (0.55-1.02); EST Glomerular Filtration Rate 59 mL/min (>60); Est Glom Filt Rate - Afr Amer 71 mL/min (>60); Globulin 2.9 g/dL (2.2-4.2); Glucose 86 mg/dL (74-106); Potassium 3.6 mmol/L (3.5-5.1); Protein, Total 6.6 g/dL (6.4-8.2); Sodium Level 139 mmol/L (136-145)
== END | disposition home or self-care (01) ==
LOC: MTLAB 11:38
PROVIDERS: PCP Family Medicine; Referring Provider Internal Medicine Rheumatology; Visit Provider Internal Medicine Rheumatology
DX: M06.4 Inflammatory polyarthropathy (principal); Z79.899 Other long term (current) drug therapy
CPT/HCPCS: 36415; 80053; 85025

== ENCOUNTER → 2024-03-06 | Outpatient (CLI) | payer MEDICARE, OTHER, SELFPAY ==
--- NOTE | 2024-03-06 08:11 | MRI_ITS ---
STUDY: MRI RIGHT SHOULDER REASON FOR EXAM: Female, 74 years old. Pain, assess cuff tear. TECHNIQUE: Standardized fat and water weighted pulse sequences were obtained in all 3 orthogonal planes. COMPARISON: Right shoulder radiographs dated 02/17/2024. FINDINGS: There is a full-thickness tear of the anterior supraspinatus tendon, overall measuring 2.0 cm in length (coronal T2 series 6 images 12-14) and 0.4 cm in width (sagittal T2 series 7 images 8-11). Normal infraspinatus tendon. Normal subscapularis tendon. Normal teres minor tendon. Normal supraspinatus muscle. Normal infraspinatus muscle. Normal subscapularis muscle. Normal teres minor muscle. There is a tiny glenohumeral joint effusion with fluid communicating into the subacromial-subdeltoid and subcoracoid bursae. Normal humeral head and visualized proximal humerus. Normal biceps labral complex. Normal intracapsular long biceps tendon. Normal labrum. Normal capsulo-ligamentous complex. Normal rotator interval. There is hypertrophic acromioclavicular arthrosis, with inferior osteophyte formation, with effacement of the torn end of the supraspinatus tendon. There is a Type II morphology (curved), with a neutral orientation. Normal visualized coracohumeral and coracoacromial ligaments. Normal quadrilateral space. Normal axillary space. Normal deltoid muscle. Normal trapezius muscle. MRI/Upper Ext Joint Only(Routine) IMPRESSION: 2.0 x 0.4 cm full-thickness tear of the anterior supraspinatus tendon. Hypertrophic acromioclavicular arthrosis, with inferior osteophyte formation, with effacement of the torn end of the supraspinatus tendon. Tiny glenohumeral joint effusion with fluid communicating into the subacromial-subdeltoid and subcoracoid bursae. Electronically Signed: Herbert Benitez MD at 11:43 EDT ,
== END | disposition home or self-care (01) ==
LOC: MRI 14:40
PROVIDERS: PCP Family Medicine; Referring Provider Orthopaedic Surgery Sports Medicine; Visit Provider Orthopaedic Surgery Sports Medicine
DX: M25.511 Pain in right shoulder (principal)
CPT/HCPCS: 73221

== ENCOUNTER → 2024-03-08 | Outpatient (CLI) | payer MEDICARE, OTHER, SELFPAY ==
[2024-03-08 15:21] LABS: Absolute Lymphocyte Count 1.72 X10^3/uL (0.83-4.51); Absolute Neutrophil Count 4.8 X10^3/uL (2.0-7.7); Basophil# 0.07 X10^3/uL; Eosinophil# 0.15 X10^3/uL; Eosinophils% 2.1 % (0-5); Hematocrit 38.2 % (37-47); Hemoglobin 13.1 g/dL (12.0-15.0); Lymphocyte # 1.72 X10^3/ul (0.83-4.51); Mean Corp Hgb Conc 34.3 g/dL (32-36); Mean Corpuscular Hgb 32.5 pg (27.0-32.0); Mean Corpuscular Volume 94.8 fL (81-99); Mean Platelet Vol. 9.5 fl (6.2-12.0); Monocyte# 0.42 X10^3/uL; Monocyte% 5.9 % (0-10); NRBC Flagged by Analyzer 0 % (0-5); Neutrophil # 4.77 X10^3/uL (2.7-7.7); Neutrophil % 66.6 % (47-70); Platelet Count 253 K/mm3 (150-450); RBC Distribution Width CV 12.9 % (11.6-14.6); RBC Distribution Width SD 44.4 fl (35.1-43.9); Red Blood Count 4.03 M/mm3 (4.2-5.4); White Blood Count 7.2 K/mm3 (4.4-11.0)
[2024-03-08 16:07] LABS: ALB/GLOB Ratio 1.2 RATIO (0.9-2.4); AST(SGOT) 20 U/L (15-37); Alanine Aminotransfer ALT/SGPT 23 U/L (13-56); Albumin, Serum 3.6 g/dL (3.2-5.0); Alkaline Phosphatase 77 U/L (45-117); Anion Gap 6 (5-15); BUN 11 mg/dL (7-18); BUN/Creat Ratio 13.1 RATIO (10-20); Calcium,Total 9.2 mg/dL (8.5-10.1); Chloride 104 mmol/L (98-107); Creatinine, Serum 0.84 mg/dL (0.55-1.02); EST Glomerular Filtration Rate 70 mL/min (>60); Est Glom Filt Rate - Afr Amer 85 mL/min (>60); Glucose 100 mg/dL (74-106); Potassium 3.9 mmol/L (3.5-5.1); Protein, Total 6.6 g/dL (6.4-8.2); Sodium Level 137 mmol/L (136-145)
[2024-03-15 00:06] LABS: Lyme IgG P18 Ab Absent (.); Lyme IgG P23 Ab Absent (.); Lyme IgG P28 Ab Absent (.); Lyme IgG P30 Ab Absent (.); Lyme IgG P39 Ab Absent (.); Lyme IgG P41 Ab Present (.); Lyme IgG P45 Ab Present (.); Lyme IgG P58 Ab Absent (.); Lyme IgG P66 Ab Absent (.); Lyme IgG P93 Ab Absent (.); Lyme IgG WB Interpretation Negative (.); Lyme IgM P23 Ab Absent (.); Lyme IgM P39 Ab Absent (.); Lyme IgM P41 Ab Absent (.); Lyme IgM WB Interpretation Negative (.)
== END | disposition home or self-care (01) ==
LOC: MTLAB 11:30
PROVIDERS: PCP Family Medicine; Referring Provider Internal Medicine Rheumatology; Visit Provider Internal Medicine Rheumatology
DX: M06.4 Inflammatory polyarthropathy (principal); Z79.899 Other long term (current) drug therapy; M18.0 Bilateral primary osteoarthritis of first carpometacarpal joints; M19.041 Primary osteoarthritis, right hand
CPT/HCPCS: 36415; 80053; 85025; 86617

== ENCOUNTER 2024-04-19 09:03 | Day surgery (SDC) | payer MEDICARE, OTHER, SELFPAY ==
[2024-04-19] VITALS (11 sets, daily range): BP systolic 84–141; BP diastolic 42–70; PULSE 50–68; RESP 8–16; TEMP 35.8–36.6; O2SAT 85–100; BMI 21.3
--- NOTE | 2024-04-19 10:05 | PCM.PRE.AN2 ---
ASA Classification* ASA Classification ASA Classification: 2 Assessment & Plan Anesthesia* Anesthesia Assessment Anesthesia Assessment: Discussed sedation and/or anesthesia options, risks, benefits, and alternatives with patient/parents/legal guardian/POA. Questions invited. The patient/parents/legal guardian/POA seems to understand and agrees to proceed with anesthesia plan. Reviewed the physical assessment, medical history, allergy history and patient home medications list prior to surgery/procedure/anesthetic and documented any changes. Performed airway and anesthesia risk assessments. Anesthesia Type Anesthesia Type: General (block consentesd) Anesthesia Focused Assessment* Temperature: 97.6 F Pulse Rate: 68 Blood Pressure: 141/70 Respiratory Rate: 16 Pulse Ox: 100 Airway Assessment Mouth opens: >3 cm Mallampati Score: II Focused Labs Anesthesia Preop lab: CBC WBC 7.2 K/mm3 (4.4-11.0) 03/08/24 11:45 RBC 4.03 M/mm3 (4.2-5.4) L 03/08/24 11:45 Hgb 13.1 g/dL (12.0-15.0) 03/08/24 11:45 Hct 38.2 % (37-47) 03/08/24 11:45 Plt Count 253 K/mm3 (150-450) 03/08/24 11:45 CHEMISTRY Potassium 3.9 mmol/L (3.5-5.1) 03/08/24 11:45 Sodium 137 mmol/L (136-145) 03/08/24 11:45 BUN 11 mg/dL (7-18) 03/08/24 11:45 Creatinine 0.84 mg/dL (0.55-1.02) 03/08/24 11:45 Glucose 100 mg/dL (74-106) 03/08/24 11:45 COAG Pre-Assessment Diagnosis/Proposed Procedure Planned Operative Procedure(s): (R) Right shoulder arthroscopy, subacromial decompression, rotator cuff repair, distal clavicle excision Anesthesia History 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 When Was Last Pacemaker Check QUESTION #4 FULL TEXT: You/Your Family Experience fever (hyperthermia) with Anesthesia Last Oral Intake Last Oral intake: Last Oral Intake NPO since 06:30 04/19/24 09:35 Meds taken in AM with sips of No 04/19/24 09:35 water? Meds patient instructed to take am of surgery PONV PONV - marine service station attendant: PONV - marine service station attendant Female Yes 04/11/24 09:52 HX of Motion Sickness No 04/11/24 09:52 HX of N/V After Surgery Yes 04/11/24 09:52 Non-Smoker Yes 04/11/24 09:52 Duration of Surgery greater Yes 04/11/24 09:52 than 60 minutes Number of Risk Factors 4 04/11/24 09:52 PONV Score Severe Risk 04/11/24 09:52 Height & Weight Height & Weight: Anesthesia: Height & Weight Height 5 ft 6 in 04/19/24 09:35 Weight: 60 kg 04/19/24 09:35 Body Mass Index (BMI) 21.3 04/19/24 09:35 Respiratory Assessment Respiratory Assessment - marine service station attendant: Respiratory Tract Infection Hx - marine service station attendant Hx Respiratory Tract Infection No 04/11/24 09:52 STOP Sleep Apnea STOP Sleep Apnea - marine service station attendant: STOP Sleep Apnea - marine service station attendant Hx Hypertension No 04/11/24 09:52 Hx Sleep Apnea No 04/11/24 09:52 CPAP BIPAP Do you snore loudly (louder No 04/11/24 09:52 than talking or can be heard Do you often feel tired/ No 04/11/24 09:52 fatigued/ sleepy during daytime? Has anyone observed you stop No 04/11/24 09:52 breathing during sleep? STOP Results Negative 04/11/24 09:52 QUESTION #5 FULL TEXT : Do you snore loudly (louder than talking or can be heard through closed doors)? 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 Specify any problems Hx of Preganancy in last 3 N/A 04/11/24 09:52 Months Nurse Filling Out Transfusion NBUCHER 04/11/24 09:52 & Questions: Date: 04/11/24 04/11/24 09:52 Time: 09:55 04/11/24 09:52 Patient unable to answer at this time (ie. confused, unrespo /Reproduction History /Reproductive History - marine service station attendant: /Reproductive Hx- marine service station attendant Hx Now No 04/11/24 09:52 Gestational Age (in weeks): EDC: Hx Hx Para Hx Section SAB No 04/11/24 09:52 PFSH Medical History Wears glasses Alcohol use Rash Dermatitis Rheumatoid arthritis High cholesterol Anemia DVT (deep venous thrombosis) (~1971) History of hiatal hernia History of diverticulitis Gastric reflux Former smoker Leg cramps Wears hearing aid Loss of hearing Schwannoma of nerve of head PONV (postoperative nausea and vomiting) Impingement of right shoulder 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 Right rotator cuff tear Right shoulder pain Urge incontinence of urine due to female genital prolapse Polyarthritis Hyperlipidemia Hemorrhoids Osteopenia Endometriosis Hearing loss in right ear Vestibular schwannoma Diverticulosis of sigmoid colon Abdominal pain Home Medications ?Medication ?Instructions ?Recorded ?Last Taken ?Type leucovorin calcium 15 mg tablet 15 mg PO DAILY 01/15/22 Unknown History methotrexate sodium 2.5 mg tablet 2.5 mg PO QWEEK 01/15/22 Unknown History biotin 10,000 mcg capsule 10,000 mcg PO DAILY 04/07/23 Unknown History cyanocobalamin (B12)-cobamamide 3,000 cayetano sublingual DAILY 04/07/23 Unknown History 5,000 mcg-100 mcg sublingual lozenge (B12) folic acid 1 mg tablet 2 mg PO DAILY 04/07/23 Unknown History jhgzzlyo-jui-aspz-FA-Ca carb-vit K 1 tab PO DAILY 04/07/23 Unknown History 18 mg iron-400 mcg-500 mg tablet (One-A-Day Womens Formula) turmeric 100 mg-elida 150 1 cap PO DAILY 04/07/23 Unknown History mg-olive 50 mg-oreg 150 mg-capryl capsule vitamin B complex (Vitamins B 1 cap PO DAILY 04/07/23 Unknown History Complex capsule) cholecalciferol (vitamin D3) 125 125 mcg PO DAILY 02/17/24 Unknown History mcg (5,000 unit) capsule flaxseed 1 ea PO DAILY 02/17/24 Unknown History vitamin K2 100 mcg capsule 100 mcg PO DAILY 02/17/24 Unknown History doxycycline hyclate 100 mg capsule 100 mg PO BID 04/11/24 Unknown History fexofenadine 60 mg tablet (Qing 60 mg PO BID 04/11/24 Unknown History Allergy) Allergy/AdvReac Type Severity Reaction Status Date / Time levofloxacin Allergy Intermediate Rash Verified 04/11/24 09:49 Penicillins Allergy Intermediate unk Verified 04/11/24 09:49 Sulfa (Sulfonamide Allergy Intermediate unk Verified 04/11/24 09:49 Antibiotics) latex Allergy Mild Rash Verified 04/11/24 09:49 Seasonal Allergies: Uncoded Allergy Mild Other Verified 04/11/24 09:49 omeprazole (From Prilosec) AdvReac Nausea Verified 04/11/24 09:49 Surgical History History of ear surgery H/O hysterectomy with oophorectomy Social History Smoking Status: Former smoker Review of Systems (Anesthesia) ROS Narrative System reviewed and no additional complaints, except as documented.
[2024-04-19] MEDS: Lactated Ringers 1,000 ML 15 ML IV (10:06)
--- NOTE | 2024-04-19 11:12 | PCM.HP.STD ---
HPI - General HPI Narrative JOSHUA ELLIOTT, is a 74 F who presents for right shoulder arthroscopy, subacromial decompression, rotator cuff repair, distal clavicle excision. No changes to history and physical exam. Right shoulder marked. Plan for block. Consent updated. Risks alternatives benefits as well as postoperative recovery and narcotic counseling discussed with the patient. They understand wish to proceed no further questions or concerns. MR#: [id number] Acct: [id number] Name: JOSHUA ELLIOTT Rep #: [id number] : 1950 Provider: Dr. John Perkins MD Age/Sex: 74/F Location: [facility] [place].[facility] Status: Signed Intake Vital Signs 02/16/2414:54 Height 5 ft 6 in Weight: 133 lb 4 oz BMI 21.4 Intake Visit Reasons: RIGHT SHOULDER Chief Complaint: Right Shoulder Pain Accompanied by: Self Is patient in pain?: Yes Allergies levofloxacin Allergy (Intermediate, Verified 03/10/24 14:22) RashPenicillins Allergy (Intermediate, Verified 03/10/24 14:22) unkSulfa (Sulfonamide Antibiotics) Allergy (Intermediate, Verified 03/10/24 14:22) unklatex Allergy (Mild, Verified 03/10/24 14:22) RashSeasonal Allergies: Uncoded Allergy (Mild, Verified 03/10/24 14:22) Otheromeprazole (From Prilosec) Adverse Reaction (Verified 03/10/24 14:22) Nausea Medications ?Medication ?Instructions ?Recorded ?Confirmed ?Type leucovorin calcium 15 mg tablet 15 mg PO DAILY 01/15/22 03/10/24 History methotrexate sodium 2.5 mg tablet 2.5 mg PO QWEEK 01/15/22 03/10/24 History biotin 10,000 mcg capsule 10,000 mcg PO DAILY 04/07/23 03/10/24 History cyanocobalamin (B12)-cobamamide 3,000 cayetano sublingual DAILY 04/07/23 03/10/24 History 5,000 mcg-100 mcg sublingual lozenge (B12) folic acid 1 mg tablet 2 mg PO DAILY 04/07/23 03/10/24 History imzlewuo-iko-exxm-FA-Ca carb-vit K 1 tab PO DAILY 04/07/23 03/10/24 History 18 mg iron-400 mcg-500 mg tablet (One-A-Day Womens Formula) turmeric 100 mg-elida 150 cap PO DAILY 04/07/23 03/10/24 History mg-olive 50 mg-oreg 150 mg-capryl capsule vitamin B complex (Vitamins B 1 cap PO DAILY 04/07/23 03/10/24 History Complex capsule) cholecalciferol (vitamin D3) 125 125 mcg PO DAILY 02/17/24 03/10/24 History mcg (5,000 unit) capsule flaxseed ea PO 02/17/24 03/10/24 History vitamin K2 100 mcg capsule 100 mcg PO DAILY 02/17/24 03/10/24 History Have you fallen in the past year?: No [facility] Medical History (Updated 03/10/24 @ 14:44 by John Perkins MD) Impingement of right shoulder 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 John Perkins MD 03/10/24 1105. Part of today?s visit was documented by [ ], acting as scribe. JOSHUA ELLIOTT is a 74 year old F here today for follow-up right shoulder MRI. The patient still having shoulder pain and here for MRI follow-up. Supplemental Info [facility] Imaging Services [address], [place] [id number] Upper Ext Joint Only(Routine) MR#: [id number] Acct: [id number] Name: JOSHUA ELLIOTT Rep #: [id number] : 1950 F 74 From: Herbert Benitez MD PCP: Dr. Ray Reid MD Status: REG CLI Study: Upper Ext Joint Only(Routine) Date of Exam: 03/06/24 Exam# [id number] Ordering Dr: John Perkins MD STUDY: MRI RIGHT SHOULDER REASON FOR EXAM: Female, 74 years old. Pain, assess cuff tear. TECHNIQUE: Standardized fat and water weighted pulse sequences were obtained in all 3 orthogonal planes. COMPARISON: Right shoulder radiographs dated 02/17/2024. FINDINGS: There is a full-thickness tear of the anterior supraspinatus tendon, overall measuring 2.0 cm in length (coronal T2 series 6 images 12-14) and 0.4 cm in width (sagittal T2 series 7 images 8-11). Normal infraspinatus tendon. Normal subscapularis tendon. Normal teres minor tendon. Normal supraspinatus muscle. Normal infraspinatus muscle. Normal subscapularis muscle. Normal teres minor muscle. There is a tiny glenohumeral joint effusion with fluid communicating into the subacromial-subdeltoid and subcoracoid bursae. Normal humeral head and visualized proximal humerus. Normal biceps labral complex. Normal intracapsular long biceps tendon. Normal labrum. Normal capsulo-ligamentous complex. Normal rotator interval. There is hypertrophic acromioclavicular arthrosis, with inferior osteophyte formation, with effacement of the torn end of the supraspinatus tendon. There is a Type II morphology (curved), with a neutral orientation. Normal visualized coracohumeral and coracoacromial ligaments. Normal quadrilateral space. Normal axillary space. Normal deltoid muscle. Normal trapezius muscle. MRI/Upper Ext Joint Only(Routine) IMPRESSION: 2.0 x 0.4 cm full-thickness tear of the anterior supraspinatus tendon. Hypertrophic acromioclavicular arthrosis, with inferior osteophyte formation, with effacement of the torn end of the supraspinatus tendon. Tiny glenohumeral joint effusion with fluid communicating into the subacromial-subdeltoid and subcoracoid bursae. Electronically Signed: Herbert Benitez MD at 11:43 EDT , I independently reviewed the imaging. Concur with radiologist report. Coding Level of Care Code Off vis,est,level 4 Diagnoses Right shoulder pain M25.511 Right rotator cuff tear M75.101 Arthrosis of right acromioclavicular joint M19.011 Impingement of right shoulder M25.811 Assessment and Plan Assessment and Plan (1) Right shoulder pain: Status: Acute Plan: 74-year-old female with a small right rotator cuff tear. Patient also has AC joint arthrosis pain at the AC joint and a positive cross body adduction test. We went over the diagnosis prognosis and different treatment options including but not limited to rest ice anti-inflammatories activity modification score cortisone injections physical therapy doing nothing as well as surgery. Surgery in my hands to be in the form of right shoulder arthroscopy, subacromial decompression, rotator cuff repair, distal clavicle excision. The patient understands would be at slightly higher risk due to the methotrexate immune suppressant medication we will get a clearance before surgery that can increase risk of infection and other complications typically patients will go off there immunosuppressive medications around surgery patient understands no further questions wished to go ahead signed the consent form today. Pros and cons risks and benefits were discussed with the patient including but not limited to infection, pain, stiffness, bleeding, damage to surrounding structures, neurovascular injury, recurrence or retear, failure or wear of hardware or fixation, instability, fracture, deep vein thrombosis and pulmonary embolism, anesthetic risks, , patient dissatisfaction, need for further surgery and other risks. Patient understood and wished to proceed with surgery, and signed the informed consent documentation. (2) Right rotator cuff tear: Status: Acute (3) Arthrosis of right acromioclavicular joint: Status: Acute (4) Impingement of right shoulder: Status: Acute Clinical Quality Measures Falls Risk Screening/Assistive Devices Have you fallen in the past year?: No Ortho Exam General General: Yes no acute distress Neurologic: Yes alert and Yes oriented x3 Psychologic: Yes reasonable and appropriate Right Shoulder Skin/Wound: Yes CDI, No ecchymosis, No erythema and No swelling Testing: Positive Hawkin's, Neer's, Speed's, TTP Biceps, AROM-Forward Elevation 0-180, AROM-External Rotation at side 0-60, empty can, cross arm and belly press normal; Negative TTP AC Joint, Drop Arm or scapular winging SHOULDER: normal motor and sens to ax nerve, and MRU and AIN/PIN strength fe and er 4+/5, painful arc, no drop arm, full ROM, no crepitus. nvi. 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 Right rotator cuff tear Right shoulder pain Urge incontinence of urine due to female genital prolapse Polyarthritis Hyperlipidemia Hemorrhoids Osteopenia Endometriosis Hearing loss in right ear Vestibular schwannoma Diverticulosis of sigmoid colon Abdominal pain Home Medications ?Medication ?Instructions ?Recorded ?Last Taken ?Type leucovorin calcium 15 mg tablet 15 mg PO DAILY 01/15/22 Unknown History methotrexate sodium 2.5 mg tablet 2.5 mg PO QWEEK 01/15/22 Unknown History biotin 10,000 mcg capsule 10,000 mcg PO DAILY 04/07/23 Unknown History cyanocobalamin (B12)-cobamamide 3,000 cayetano sublingual DAILY 04/07/23 Unknown History 5,000 mcg-100 mcg sublingual lozenge (B12) folic acid 1 mg tablet 2 mg PO DAILY 04/07/23 Unknown History kposskqo-ghx-agse-FA-Ca carb-vit K 1 tab PO DAILY 04/07/23 Unknown History 18 mg iron-400 mcg-500 mg tablet (One-A-Day Womens Formula) turmeric 100 mg-elida 150 1 cap PO DAILY 04/07/23 Unknown History mg-olive 50 mg-oreg 150 mg-capryl capsule vitamin B complex (Vitamins B 1 cap PO DAILY 04/07/23 Unknown History Complex capsule) cholecalciferol (vitamin D3) 125 125 mcg PO DAILY 02/17/24 Unknown History mcg (5,000 unit) capsule flaxseed 1 ea PO DAILY 02/17/24 Unknown History vitamin K2 100 mcg capsule 100 mcg PO DAILY 02/17/24 Unknown History doxycycline hyclate 100 mg capsule 100 mg PO BID 04/11/24 Unknown History fexofenadine 60 mg tablet (Qing 60 mg PO BID 04/11/24 Unknown History Allergy) Allergy/AdvReac Type Severity Reaction Status Date / Time levofloxacin Allergy Intermediate Rash Verified 04/11/24 09:49 Penicillins Allergy Intermediate unk Verified 04/11/24 09:49 Sulfa (Sulfonamide Allergy Intermediate unk Verified 04/11/24 09:49 Antibiotics) latex Allergy Mild Rash Verified 04/11/24 09:49 Seasonal Allergies: Uncoded Allergy Mild Other Verified 04/11/24 09:49 omeprazole (From Prilosec) AdvReac Nausea Verified 04/11/24 09:49 Surgical History History of ear surgery H/O hysterectomy with oophorectomy Social History Smoking Status: Former smoker Vital Signs Vital Signs Vital Signs: 04/19/24 09:35 04/19/24 09:35 04/19/24 10:07 Temperature 97.6 F L 97.6 F L Temperature Source Temporal Pulse Rate 68 68 Respiratory Rate 16 16 Respiratory Pattern Normal Blood Pressure 141/70 H 141/70 H Blood Pressure Mean 93 Blood Pressure Source Monitor Blood Pressure Position Sitting Blood Pressure Location Right Arm Pulse Ox 100 100 Oxygen Delivery Method Room Air Weight Weight: 132 lb 4.438 oz Body Mass Index (BMI) 21.3
[2024-04-19] MEDS: Cefazolin 2 GM in 0.9% Normal Saline (100mL Bag) 100 ML IV (11:21)
--- NOTE | 2024-04-19 12:48 | DCINST_ITS ---
Discharge Instructions Diet Discharge Diet: No restrictions Activity Ice area for (Minutes): 10 Lifting Restrictions: pendulums only, ok for hand wrist elbow ROM, on lifting over 1 pound Additional Activity Instructions:: ok to remove sling at rest Dressing / Incision Call your doctor if your incision/area has: Continuous Slow Oozing, Sudden Increased Bleeding, Increased Pain/ Swelling, Increased Redness, Foul Smelling Discharge and Swelling at the incision site Call your doctor if you observe: Fever of 101 or Higher, Coldness, Increased Pain and Numbness or Tingling Change Dressing in: leave in place till F/U Cleanse incision/area with: Do not get Incision Wet Follow Up Care Please Follow Up With: John Perkins MD When: 2 days Test Results: Test results from this visit will be discussed in further detail at your follow- up appointment, if applicable. Discharge Plan Admission Attending Provider: John Perkins Primary Care Provider: Ray Reid Instructions Print Language: [place]se Discharge Orders/Prescriptions Prescriptions: New oxycodone-acetaminophen [Endocet] 5-325 mg tablet 1 tab PO Q4H MDD 6 PRN (Reason: pain) 5 Days Qty: 30 0RF No Action leucovorin calcium 15 mg tablet 15 mg PO DAILY methotrexate sodium 2.5 mg tablet 2.5 mg PO QWEEK cholecalciferol (vitamin D3) 125 mcg (5,000 unit) capsule 125 mcg PO DAILY vitamin K2 100 mcg capsule 100 mcg PO DAILY flaxseed Powder 1 ea PO DAILY folic acid 1 mg tablet 2 mg PO DAILY One-A-Day Womens Formula 18 mg iron-400 mcg-500 mg tablet 1 tab PO DAILY biotin 10,000 mcg capsule 10,000 mcg PO DAILY B12 5,000-100 mcg lozenge 3,000 cayetano sublingual DAILY vitamin B complex [Vitamins B Complex] Capsule 1 cap PO DAILY vdajqnlx-dbxr-adpry-oreg-capry 100 mg-150 mg- 50 mg-150 mg capsule 1 cap PO DAILY Patient Comments: 07/15 tsp doxycycline hyclate 100 mg capsule 100 mg PO BID fexofenadine [Qing Allergy] 60 mg tablet 60 mg PO BID Other Ambulatory Orders: 12 Lead EKG (Routine) Location: None Selected Ordered By: Dr. Yahir Herrera Referrals / Follow Up: Ray Reid MD [Primary Care Provider] - Disposition Disposition (needs filled in before D/C Order can be placed): Home, Self Care
--- NOTE | 2024-04-19 12:52 | OP.PCM_ITS ---
Problems Associated Problem List Diagnoses (1) Right shoulder pain: (2) Right rotator cuff tear: (3) Arthrosis of right acromioclavicular joint: (4) Impingement of right shoulder: Report of Operation Date of Procedure: 04/19/24 Pre-Operative Diagnosis: R shoulder rotator cuff tear, ACJ arthrosis, impingement Post-Operative Diagnosis: same Surgery/Procedure Performed:: Right shoulder arthroscopy, subacromial decompression, distal clavicle excision, rotator cuff repair Surgeon: John Perkins Type of Anesthesia: Block,Regional and General Anesthesiologist: Collin Lemon Estimated Blood Loss (mL): 30 Description of Procedure: Patient brought to the operating room theater. Placed supine on the table. General anesthesia induced. 2 g IV Ancef administered prior to the start of the procedure. Patient transferred right side up lateral decubitus beanbag positioner. Axillary roll placed. SCDs on the legs. All bony prominences padded. Upper extremity prepped and draped in the usual sterile fashion with chlorhexidine-based prep solution allowing over 3 minutes drying time prior to d raping. Arm in the traction set up 45 degrees of abduction 10 pounds of traction. Preoperative timeout performed to confirm the site patient and the surgery. Began by inserting the arthroscope into the intra-articular portion of the shoulder. Minor chondral wear consistent with age no defects slight fraying of the labrum. Biceps tendon appeared normal as did the attachment probed felt to be stable. Subscapularis very minor amount of fraying but again felt to be intact axillary recess entered no loose bodies. There is obvious near full- thickness tearing of the anterior leading edge of the supraspinatus tendon no other rotator cuff tears identified. I used inside out spinal needle localization to make a anterior portal through the rotator interval. Arthroscopy pictures taken and saved onto the system throughout the case. I then inserted the arthroscope into the subacromial space did a bursectomy minor amount of bursitis. Identified the distal end of the clavicle. I did a distal clavicle excision for a width of about 3 mm with good space there and flat margins. I performed a subacromial decompression for 3 mm as well minor downsloping of the anterolateral acromion. Identified the tear area this was at the anterior leading edge of the tendon some fibers remaining this was just posterior to the biceps tendon curving over the humeral head. This is a high- grade near complete tear for an anterior to posterior width of about 1.5 to 2 cm. I gently debrided the edges of the tear. I used power pick instrument to trephinate multiple holes to create bleeding bed for healing. I elected to do a tendon preserving repair. I used Arthrex fiber tack all suture anchors just anterior and just posterior to the tear at the superior aspect of the humeral head. The anterior suture was just anterior to the tendon and the posterior fiber tack suture anchor was trans tendon. I used the knotless mechanism to pass 2 repair sutures to create a medial row. I then used the fiber tape stitches I took those out laterally and then inserted those into a self punching Arthrex 4.75 mm swivel lock bio composite anchor to create a triangular shaped repair at the anterior leading edge of the tear. Sutures cut short. This is quite solid repair. Arthroscopy pictures taken and saved onto the system throughout the case. Case terminated wound thoroughly irrigated. I had used to 7 x 7 mm cannulas laterally I closed all the portal sites with 3-0 Monocryl sutures. Skin cleaned with wet and dry dressing followed medication of Steri-Strips Adaptic 4 x 4 gauze ABD dressing cloth tape and an abduction pillow sling for the upper extremity. Patient will come from a general anesthetic transferred off the operating table and taken postanesthetic care unit in stable condition. All sponge needle and instrument counts were correct no complications. Plan for the patient discharged home according to day surgery criteria and a sling. FU in office Wednesday. commercial sales manager Bárbara, retracting, holding and passing instruments, drsg, positioning CPT 21685, 79630, 18269 Procedure Start Time: 11:46 Procedure Stop Time: 12:45 Complications none Admit VTE Documentation VTE Present on Admission: No VTE Mechan Device Prophylaxis: SCD's VTE Pharm Prophylaxis ordered?: No Reason prophylaxis not ordered:: Treatment Not Indicated Procedures Musculoskeletal 20xxx-29xxx: Other Procedure See Report
--- NOTE | 2024-04-19 13:42 | PCM.POST.ANE ---
Anesthesia: Postop Eval I Current Vital Signs Temperature: 98 F Pulse Rate: 50 Blood Pressure: 88/49 Respiratory Rate: 10 Pulse Ox: 96 Oxygen Delivery Method: Nasal Cannula Oxygen Flow Rate (L/min): 4 Assessment Airway patent: Yes Spontaneous unlabored respirations: Yes Mental status: Awake and Calm nausea: No Vomiting: No Anesthesia Complication: No Fluid Hydration Crystalloid volume administer (ml): 800 Total IV fluid infused: 800 Progress Note Anesthesia document: Postop Eval 1 completed: Yes
--- NOTE | 2024-04-19 13:55 | POSTOPAN2_ITS ---
Anesthesia Postop Eval I Sum Postop Eval Completion status Anesthesia document: Postop Eval 1 completed: Yes Anesthesia Postop Eval I Summary Anesthesia Postop Eval I Summary: Anesthesia Postop Eval I: Assessment Summary Airway patent Yes 04/19/24 13:42 [email or web address] Spontaneous unlabored Yes 04/19/24 13:42 [email or web address] respirations Mental status Awake,Calm 04/19/24 13:42 [email or web address] nausea No 04/19/24 13:42 [email or web address] Vomiting No 04/19/24 13:42 [email or web address] Anesthesia Postop Eval I: Fluid Summary Crystalloid volume administer 800 04/19/24 13:42 [email or web address] (ml) Colloids volume administered ( ml) Blood Product volume administered (ml) Total IV fluid infused 800 04/19/24 13:42 [email or web address] Anesthesia Postop Eval I: Summary Notes Anesthesia Complication No 04/19/24 13:42 [email or web address] Anesthesia Complication Comment: Post-operative progress note Anesthesia: Postop Eval II Evaluation Mental status: Awake and Calm Pain Level: 2 nausea: No Vomiting: No Complications Anesthesia Complication: No
--- NOTE | 2024-04-19 13:55 | PCM.POSTANE2 ---
Anesthesia Postop Eval I Sum Postop Eval Completion status Anesthesia document: Postop Eval 1 completed: Yes Anesthesia Postop Eval I Summary Anesthesia Postop Eval I Summary: Anesthesia Postop Eval I: Assessment Summary Airway patent Yes 04/19/24 13:42 INDUSTRIAL RELATIONS [email or web address] Spontaneous unlabored Yes 04/19/24 13:42 INDUSTRIAL RELATIONS [email or web address] respirations Mental status Awake,Calm 04/19/24 13:42 INDUSTRIAL RELATIONS ANALYST.[email or web address] nausea No 04/19/24 13:42 INDUSTRIAL RELATIONS ANALYST.[email or web address] Vomiting No 04/19/24 13:42 INDUSTRIAL RELATIONS ANALYST.[email or web address] Anesthesia Postop Eval I: Fluid Summary Crystalloid volume administer 800 04/19/24 13:42 INDUSTRIAL RELATIONS ANALYST.JBLOU (ml) Colloids volume administered ( ml) Blood Product volume administered (ml) Total IV fluid infused 800 04/19/24 13:42 INDUSTRIAL RELATIONS ANALYST.[email or web address] Anesthesia Postop Eval I: Summary Notes Anesthesia Complication No 04/19/24 13:42 INDUSTRIAL RELATIONS ANALYST.[email or web address] Anesthesia Complication Comment: Post-operative progress note Anesthesia: Postop Eval II Evaluation Mental status: Awake and Calm Pain Level: 2 nausea: No Vomiting: No Complications Anesthesia Complication: No
== END 2024-04-19 14:43 | disposition home or self-care (01) ==
LOC: SDC 09:04 → AC 09:04
PROVIDERS: PCP Family Medicine; Referring Provider Orthopaedic Surgery Sports Medicine; Visit Provider Orthopaedic Surgery Sports Medicine
PROC: (CPT 29805; principal; 2024-04-19 10:50)
DX: M19.011 Primary osteoarthritis, right shoulder (principal); Z87.891 Personal history of nicotine dependence; M75.101 Unspecified rotator cuff tear or rupture of right shoulder, not specified as traumatic; M25.811 Other specified joint disorders, right shoulder; K21.9 Gastro-esophageal reflux disease without esophagitis; Z87.19 Personal history of other diseases of the digestive system
CPT/HCPCS: 29826; 29827; 29824; 01630; 64415; 93005; C1713; J7120; J2405

== ENCOUNTER → 2024-05-30 | Outpatient (CLI) | payer MEDICARE, OTHER, SELFPAY ==
[2024-05-30 17:39] LABS: Absolute Neutrophil Count 4.6 X10^3/uL (2.0-7.7); Basophil# 0.06 X10^3/uL; Basophil% 0.9 % (0-1); Eosinophil# 0.13 X10^3/uL; Eosinophils% 1.8 % (0-5); Hematocrit 38.7 % (37-47); Hemoglobin 13.6 g/dL (12.0-15.0); Lymphocyte % 25.6 % (19-41); Mean Corp Hgb Conc 35.1 g/dL (32-36); Mean Corpuscular Hgb 32.8 pg (27.0-32.0); Mean Corpuscular Volume 93.3 fL (81-99); Mean Platelet Vol. 9.5 fl (6.2-12.0); Monocyte# 0.41 X10^3/uL; Monocyte% 5.8 % (0-10); NRBC Flagged by Analyzer 0 % (0-5); Neutrophil % 65.5 % (47-70); Platelet Count 236 K/mm3 (150-450); RBC Distribution Width CV 12.5 % (11.6-14.6); RBC Distribution Width SD 42.3 fl (35.1-43.9); Red Blood Count 4.15 M/mm3 (4.2-5.4)
[2024-05-30 18:00] LABS: ALB/GLOB Ratio 1.3 RATIO (0.9-2.4); AST(SGOT) 24 U/L (15-37); Alanine Aminotransfer ALT/SGPT 29 U/L (13-56); Albumin, Serum 3.9 g/dL (3.2-5.0); Alkaline Phosphatase 79 U/L (45-117); Anion Gap 6 (5-15); BUN 21 mg/dL (7-18); BUN/Creat Ratio 26.5 RATIO (10-20); Chloride 105 mmol/L (98-107); Creatinine, Serum 0.79 mg/dL (0.55-1.02); EST Glomerular Filtration Rate 75 mL/min (>60); Est Glom Filt Rate - Afr Amer 91 mL/min (>60); Globulin 3.1 g/dL (2.2-4.2); Glucose 99 mg/dL (74-106); Potassium 3.6 mmol/L (3.5-5.1); Sodium Level 137 mmol/L (136-145)
[2024-06-01 12:10] LABS: Lyme Scn Total Ab w/Rflx Negative (Negative)
== END | disposition home or self-care (01) ==
LOC: MTLAB 14:24
PROVIDERS: PCP Family Medicine; Referring Provider Internal Medicine Rheumatology; Visit Provider Internal Medicine Rheumatology
DX: M06.4 Inflammatory polyarthropathy (principal); Z79.899 Other long term (current) drug therapy
CPT/HCPCS: 36415; 80053; 85025; 86618

== ENCOUNTER → 2024-08-02 | Outpatient (CLI) | payer MEDICARE, OTHER, SELFPAY ==
--- NOTE | 2024-08-02 | IMM_PTH ---
PATIENT: JOSHUA ELLIOTT LOC: [facility] U#:[id number] AGE/SX: 74/F ROOM: RE08/02/[address]: Dr. Anderson Young MD : 1950 BED: DIS: 08/02/2024 SPEC #: [id number] RECD: 08/04/24 11:10 STATUS: CORIE REQ #: [id number] LORRI: 08/02/24 00:[address]: Anderson Young DEPT: IMMUNOHISTOCHEMISTRY RECD BY: Agapito Mckeon ENTERED: 08/04/24 11:11 SP TYPE: IMMUNO OTHR DR: Dr. Ray Reid MD Tissues: Vertebra, NOS Procedures: CD34 (add) CD45 (add) CK8 (add) Pankeratin (initial) PHYSICIAN & INSTITUTION [place] [id number] SPECIMEN INFORMATION: Tissue Source: L1 Clinical Info: Other osteoporosis with current pathological fracture, vertebrae, initial encounter for fracture Specimen Number: [id number] CPT code: 57715,20987g6 METHODOLOGY: Deparaffinized sections of prefer/formalin-fixed tissue or PAP/DQ stained slides are incubated with monoclonal/polyclonal antibodies/oligonucleotide probes. Localization is made via biotin free immunoperoxidase method. Appropriate controls are performed and reacted as expected. Results on target cell population are indicated in the following table: RESULTS: ANTIBODY / CLONE RESULT AE1-3 (AE1/AE3/PCK26) negative CK8 ([id number]) negative CD45 (RP2/18) positive CD34 (QBEnd-10) negative These tests were developed and their performance characteristics determined by [facility]. They may not have been cleared or approved by the U.S. Food and Drug Administration. The FDA has determined that such clearance or approval is not necessary. The above immunohistochemical/dualISH markers are ordered and reviewed by the Pathologist. INTERPRETATION: L 1, vertebrae body, core biopsy: Negative for malignancy. See comment. COMMENT: A few minute lymphoid aggregates favor benign. SJ.mr 08/07/2024
--- NOTE | 2024-08-02 07:30 | BONBX_PTH ---
PATIENT: JOSHUA ELLIOTT LOC: [facility] U#:[id number] AGE/SX: 74/F ROOM: RE08/02/[address]: Dr. Anderson Young MD : 1950 BED: DIS: 08/02/2024 SPEC #: [id number] RECD: 08/02/24 14:52 STATUS: CORIE REQ #: [id number] LORRI: 08/02/24 07:[address]: Anderson Young DEPT: SURGICAL PATHOLOGY RECD BY: Meera Chen ENTERED: 08/03/24 10:31 SP TYPE: Bone OTHR DR: Dr. Ray Reid MD Tissues: Vertebra, NOS Procedures: Decalcification bone/plaque Surgery Specimen Level V HEADER OPERATION: Kyphoplasty at L1 with biopsy of L1 under fluoroscopy PRE-OP DIAGNOSIS: Other osteoporosis with current pathological fracture, vertebrae, initial encounter for fracture TISSUE SUBMITTED: L1 MICROSCOPIC DIAGNOSIS L1 vertebrae body, core biopsy: A piece of bone, negative for malignancy. See comment. 08/04/2024 COMMENT Immunohistochemistry ([id number]) supports the above diagnosis. Trilineage hematopoiesis is noted. A few minute lymphoid aggregates are noted, favor benign. Clinical correlation and appropriate follow up are necessary. MICROSCOPIC DESCRIPTION Slides are reviewed. GROSS DESCRIPTION Received in fixative is one container labeled with the patient's name and designated L1. The specimen consists of multiple fragments of bone that in aggregate measure 0.5 x 0.3 x 0.1cm. The specimen is totally submitted in one cassette after decalcification. 08/03/2024 TC:5 CPT:33841,44676
== END | disposition home or self-care (01) ==
LOC: LABSPEC 15:04
PROVIDERS: PCP Family Medicine; Referring Provider Anesthesiology Pain Medicine; Visit Provider Anesthesiology Pain Medicine
DX: M80.08XA Age-related osteoporosis with current pathological fracture, vertebra(e), initial encounter for fracture (principal)
CPT/HCPCS: 88307; 88311; 88341; 88342

== ENCOUNTER → 2024-08-21 | Outpatient (CLI) | payer MEDICARE, OTHER, SELFPAY ==
[2024-08-21 15:36] LABS: Absolute Lymphocyte Count 1.68 X10^3/uL (0.83-4.51); Absolute Neutrophil Count 3.9 X10^3/uL (2.0-7.7); Basophil# 0.07 X10^3/uL; Basophil% 1.1 % (0-1); Eosinophil# 0.27 X10^3/uL; Eosinophils% 4.1 % (0-5); Hematocrit 36.1 % (37-47); Hemoglobin 12.7 g/dL (12.0-15.0); Lymphocyte # 1.68 X10^3/ul (0.83-4.51); Lymphocyte % 25.4 % (19-41); Mean Corp Hgb Conc 35.2 g/dL (32-36); Mean Corpuscular Hgb 32.6 pg (27.0-32.0); Mean Corpuscular Volume 92.6 fL (81-99); Mean Platelet Vol. 9.5 fl (6.2-12.0); Monocyte# 0.62 X10^3/uL; Monocyte% 9.4 % (0-10); NRBC Flagged by Analyzer 0 % (0-5); Neutrophil # 3.93 X10^3/uL (2.7-7.7); Neutrophil % 59.4 % (47-70); Platelet Count 198 K/mm3 (150-450); RBC Distribution Width CV 13.3 % (11.6-14.6); RBC Distribution Width SD 44.9 fl (35.1-43.9); White Blood Count 6.6 K/mm3 (4.4-11.0)
[2024-08-21 16:14] LABS: AST(SGOT) 17 U/L (15-37); Alanine Aminotransfer ALT/SGPT 20 U/L (13-56); Albumin, Serum 3.3 g/dL (3.2-5.0); Alkaline Phosphatase 62 U/L (45-117); Anion Gap 6 (5-15); BUN 19 mg/dL (7-18); BUN/Creat Ratio 22.1 RATIO (10-20); Calcium,Total 9.5 mg/dL (8.5-10.1); Chloride 105 mmol/L (98-107); Creatinine, Serum 0.86 mg/dL (0.55-1.02); EST Glomerular Filtration Rate 68 mL/min (>60); Est Glom Filt Rate - Afr Amer 83 mL/min (>60); Globulin 3.2 g/dL (2.2-4.2); Glucose 97 mg/dL (74-106); Potassium 3.9 mmol/L (3.5-5.1); Protein, Total 6.5 g/dL (6.4-8.2); Sodium Level 139 mmol/L (136-145)
== END | disposition home or self-care (01) ==
LOC: MTLAB 11:23
PROVIDERS: PCP Family Medicine; Referring Provider Internal Medicine Rheumatology; Visit Provider Internal Medicine Rheumatology
DX: M06.4 Inflammatory polyarthropathy (principal); Z79.899 Other long term (current) drug therapy
CPT/HCPCS: 36415; 80053; 85025

== ENCOUNTER 2024-09-11 14:35 | Outpatient (CLI) | payer MEDICARE, OTHER, SELFPAY ==
[2024-09-11 17:59] LABS: Absolute Lymphocyte Count 1.66 X10^3/uL (0.83-4.51); Absolute Neutrophil Count 3.7 X10^3/uL (2.0-7.7); Basophil# 0.07 X10^3/uL; Basophil% 1.1 % (0-1); Eosinophil# 0.26 X10^3/uL; Eosinophils% 4.3 % (0-5); Hematocrit 39.4 % (37-47); Hemoglobin 13.7 g/dL (12.0-15.0); Lymphocyte # 1.66 X10^3/ul (0.83-4.51); Lymphocyte % 27.3 % (19-41); Mean Corp Hgb Conc 34.8 g/dL (32-36); Mean Corpuscular Hgb 32.6 pg (27.0-32.0); Mean Corpuscular Volume 93.8 fL (81-99); Mean Platelet Vol. 9.3 fl (6.2-12.0); Monocyte# 0.32 X10^3/uL; Monocyte% 5.3 % (0-10); NRBC Flagged by Analyzer 0 % (0-5); Neutrophil # 3.74 X10^3/uL (2.7-7.7); Neutrophil % 61.3 % (47-70); Platelet Count 314 K/mm3 (150-450); RBC Distribution Width CV 13.1 % (11.6-14.6); RBC Distribution Width SD 44.4 fl (35.1-43.9); White Blood Count 6.1 K/mm3 (4.4-11.0)
[2024-09-11 21:09] LABS: ALB/GLOB Ratio 1.8 RATIO (0.9-2.4); AST(SGOT) 23 U/L (<=31); Alanine Aminotransfer ALT/SGPT 17 U/L (<=34); Albumin, Serum 4.6 g/dL (3.4-4.8); Alkaline Phosphatase 76 U/L (35-104); BUN 19 mg/dL (4-19); BUN/Creat Ratio 18.3 RATIO (10-20); Creatinine, Serum 1.01 mg/dL (0.70-1.20); EST Glomerular Filtration Rate 58 (>60); Globulin 2.6 g/dL (2.2-4.2); Glucose 125 mg/dL (70-99); Protein, Total 7.2 g/dL (5.9-8.4); Total Bilirubin 0.37 mg/dL (0.00-1.30)
[2024-09-11 23:04] LABS: Anion Gap 14 (5-15); Calcium,Total 11.2 mg/dL (7.6-11.0); Carbon Dioxide 25.1 mmol/L (21.0-32.0); Chloride 103 mmol/L (98-108); Potassium 3.5 mmol/L (3.3-5.1); Sodium Level 142 mmol/L (133-145)
[2024-09-14 15:08] LABS: PROEL- A/G Ratio 1.3 (0.7-1.7); PROEL- Albumin 3.7 g/dL (2.9-4.4); PROEL- Alpha-1 Globulin 0.3 g/dL (0.0-0.4); PROEL- Alpha-2 Globulin 0.9 g/dL (0.4-1.0); PROEL- Beta Globulin 1.1 g/dL (0.7-1.3); PROEL- Gamma Globulin 0.6 g/dL (0.4-1.8); PROEL- Globulin, Total 2.9 g/dL (2.2-3.9); PROEL- TOTAL PROTEIN 6.6 g/dL (6.0-8.5); PROEL-M-Spike Not Observed g/dL (Not Observed); PROELU- Albumin, Urine 37.5 % (.); PROELU- Alpha-1-Globulin,Ur 1.5 % (.); PROELU- Alpha-2-Globulin,Ur 10.8 % (.); PROELU- Gamma Globulin, Ur 14.2 % (.); Total Protein, Ur 12.3 mg/dL (Not Estab.)
[2024-09-15 11:08] LABS: Anti-Histone Abs 0.3 Units (0.0-0.9); Anti-Nuclear Antibody Test Negative (.); Anti-Scleroderma-70 AB <0.2 AI (0.0-0.9); Anti-dsDNA Ab <1 IU/mL (0-9); RNP Ab 0.2 AI (0.0-0.9); SJOGREN'S Anti-SS-A test < 0.2 AI (0.0-0.9); SJOGREN'S Anti-SS-B test < 0.2 AI (0.0-0.9); Smith Ab <0.2 AI (0.0-0.9)
[2024-09-15 13:07] LABS: Anti-Jo <0.2 AI (0.0-0.9)
== END 2024-09-11 23:59 | disposition home or self-care (01) ==
LOC: MTLAB 14:39
PROVIDERS: PCP Family Medicine
DX: R21 Rash and other nonspecific skin eruption (principal); L30.8 Other specified dermatitis
CPT/HCPCS: 36415; 80053; 84165; 84166; 84439; 84443; 85025; 86038; 86225; 86235

== ENCOUNTER → 2024-11-06 | Outpatient (CLI) | payer MEDICARE, OTHER, SELFPAY ==
--- NOTE | 2024-11-06 15:05 | RAD_ITS ---
PROCEDURE: L/S SPINE BENDING FLEX/EXT 11/06/2024 REASON FOR EXAM: PAIN, R/O FRACTURES TECHNIQUE: 6 views of the lumbar spine FINDINGS: Vertebrae: No acute fracture. Chronic mild wedge compression fracture of L1 treated with vertebroplasty. Discs: Diffuse disc space narrowing and osteophyte formation consistent with degenerative disc disease. Alignment: Mild dextroscoliosis centered at L1. No subluxation on the lateral view. No subluxation of the flexion extension views to suggest instability. Other: RAD/L/S Spine Bending Flex/Ext IMPRESSION: Chronic mild wedge compression fracture of L1 treated with vertebroplasty. Mild dextroscoliosis with diffuse degenerative disc disease. Reading Location: [facility]
== END | disposition home or self-care (01) ==
LOC: MTRAD 14:59
PROVIDERS: PCP Family Medicine; Referring Provider Anesthesiology Pain Medicine; Visit Provider Anesthesiology Pain Medicine
DX: S32.010A Wedge compression fracture of first lumbar vertebra, initial encounter for closed fracture (principal); M51.369 Other intervertebral disc degeneration, lumbar region without mention of lumbar back pain or lower extremity pain
CPT/HCPCS: 72120

== ENCOUNTER → 2024-11-13 | Outpatient (CLI) | payer MEDICARE, OTHER, SELFPAY ==
[2024-11-13 12:34] LABS: Absolute Lymphocyte Count 2.05 X10^3/uL (0.83-4.51); Absolute Neutrophil Count 4.4 X10^3/uL (2.0-7.7); Basophil% 1.4 % (0-1); Eosinophil# 0.22 X10^3/uL; Hemoglobin 14.2 g/dL (12.0-15.0); Lymphocyte # 2.05 X10^3/ul (0.83-4.51); Lymphocyte % 28.4 % (19-41); Mean Corp Hgb Conc 35.5 g/dL (32-36); Mean Corpuscular Hgb 33.1 pg (27.0-32.0); Mean Corpuscular Volume 93.2 fL (81-99); Mean Platelet Vol. 9.6 fl (6.2-12.0); Monocyte# 0.38 X10^3/uL; Monocyte% 5.3 % (0-10); NRBC Flagged by Analyzer 0 % (0-5); Neutrophil # 4.43 X10^3/uL (2.7-7.7); Neutrophil % 61.3 % (47-70); Platelet Count 228 K/mm3 (150-450); RBC Distribution Width CV 12.9 % (11.6-14.6); RBC Distribution Width SD 43.8 fl (35.1-43.9); Red Blood Count 4.29 M/mm3 (4.2-5.4); White Blood Count 7.2 K/mm3 (4.4-11.0)
[2024-11-13 12:45] LABS: ALB/GLOB Ratio 1.8 RATIO (0.9-2.4); AST(SGOT) 25 U/L (<=31); Alanine Aminotransfer ALT/SGPT 17 U/L (<=34); Albumin, Serum 4.3 g/dL (3.4-4.8); Alkaline Phosphatase 62 U/L (35-104); Anion Gap 10 (5-15); BUN 15 mg/dL (4-19); BUN/Creat Ratio 16.2 RATIO (10-20); Calcium,Total 9.8 mg/dL (7.6-11.0); Carbon Dioxide 26.8 mmol/L (21.0-32.0); Chloride 104 mmol/L (98-108); Creatinine, Serum 0.92 mg/dL (0.70-1.20); EST Glomerular Filtration Rate 65 (>60); Globulin 2.3 g/dL (2.2-4.2); Glucose 71 mg/dL (70-99); Potassium 4.2 mmol/L (3.3-5.1); Protein, Total 6.6 g/dL (5.9-8.4); Sodium Level 141 mmol/L (133-145); Total Bilirubin 0.49 mg/dL (0.00-1.30)
== END | disposition home or self-care (01) ==
LOC: MTLAB 09:56
PROVIDERS: PCP Family Medicine; Referring Provider Internal Medicine Rheumatology; Visit Provider Internal Medicine Rheumatology
DX: M06.4 Inflammatory polyarthropathy (principal); Z79.899 Other long term (current) drug therapy
CPT/HCPCS: 36415; 80053; 85025